=== PATIENT | female | born 1955 | race Caucasian/White ===

== ENCOUNTER 2020-03-30 13:39 | Inpatient (IN) ==
[2020-03-30 14:19] LABS: Appearance Urine Cloudy (Clear); Bacteria Urine Automated Negative (Negative); Bilirubin Urine Negative (Negative); Blood Urine 2+ (Negative); Color Urine Yellow; Epithelial Cell Urine Auto 20-30 /lpf (0-5); Glucose Urine UA Negative (Negative); Ketones Urine Negative (Negative); Leukocyte Esterase Urine Negative (Negative); Nitrite Urine Negative (Negative); Protein Urine Negative (Negative); Specific Gravity Urine 1.015 (1.000-1.030); Urobilinogen Urine Negative (Negative); pH Urine 5.5 (4.5-7.5)
[2020-03-30 14:32] LABS: Basophils # (auto) 0.02 K/uL (0-0.2); Basophils % (auto) 0.3 %; Eosinophils # (auto) 0.06 K/uL (0-0.5); Eosinophils % (auto) 0.8 %; Hematocrit (blood only) 39.1 % (37-47); Immature Granulocytes # (auto) 0.02 K/uL (0.00-0.02); Immature Granulocytes % (auto) 0.3 %; Lymphocytes # (auto) 1.92 K/uL (1.2-3.4); Lymphocytes % (auto) 24.1 %; Mean Corpuscular Hemoglobin 28.6 pg (25-34); Mean Corpuscular Hgb Conc 33.2 g/dL (32-36); Mean Corpuscular Volume 85.9 fL (80-100); Mean Platelet Volume 9.7 fL (7.4-10.4); Monocytes # (auto) 0.48 K/uL (0.11-0.59); Neutrophils # (auto) 5.47 K/uL (1.4-6.5); Neutrophils % (auto) 68.5 %; Platelet Count 232 K/uL (130-400); RDW Coefficient of Variation 13.8 % (11.5-14.5); RDW Standard Deviation 43.1 fL (36.4-46.3); Red Blood Count 4.55 M/uL (4.2-5.4); White Blood Count 7.97 K/uL (4.8-10.8)
[2020-03-30 14:51] LABS: Albumin Level 3.9 gm/dl (3.4-5.0); BUN Creatinine Ratio 16.2 (10-20); Calcium 10.7 mg/dl (8.5-10.1); Creatinine Clr Calc Pharmacy 48.7 ml/min; Est GFR (African American) 73.3; Est GFR (Non-African American) 63.2; Potassium 3.7 mmol/L (3.5-5.1)
[2020-03-30 15:01] LABS: Bilirubin,Total 0.6 mg/dl (0.2-1); Globulin 3.9 gm/dl (2.5-4.0); Thyroid Stimulating Hormone 1.18 uIu/ml (0.300-4.500); Total Protein 7.8 gm/dl (6.4-8.2)
[2020-03-30 15:05] LABS: Acetaminophen < 2 ug/ml (10-30)
[2020-03-30 15:06] LABS: Salicylate < 1.7 mg/dl (2.8-20)
[2020-03-30 15:50] LABS: Amphetamines+Metham, Urine Neg (Neg); Barbiturates, Urine Neg (Neg); Benzodiazepine, Urine Neg (Neg); Cocaine, Urine Neg (Neg); MDMA (Ecstacy), Urine Neg (Neg); Methadone, Urine Neg (Neg); Opiate, Urine Neg (Neg); Phencyclidine, Urine Neg (Neg)
--- NOTE | 2020-03-30 17:02 | Emergency Department Note ---
History of Present Illness General Chief complaint: Mental Health Evaluation Stated complaint: MHE Time Seen by Provider: 03/30/20 14:05 History of Present Illness Provider complaint: Suicidal ideation 64-year-old female presents emergency department for depression and suicidal ideation. Patient states she wants to kill herself because she is so sad. She states she has been feeling anxious since September and then became extremely depressed. She does not have a specific plan but does having thoughts. She denies any homicidal ideation. Patient reports no changes recently in her medi cations for her psychiatric conditions. Home Medications Home Medications Medication Instructions Recorded Confirmed Type cholecalciferol (vitamin D3) 50 50 mcg PO DAILY 03/30/20 03/30/20 History mcg (2,000 unit) capsule lorazepam 0.5 mg PO Q3H PRN 03/30/20 03/30/20 History mirtazapine 15 mg tablet 15 mg PO DAILY 03/30/20 03/30/20 History Allergies Allergy/AdvReac Type Severity Reaction Status Date / Time codeine Allergy Unknown Verified 03/30/20 10:28 morphine Allergy Verified 03/30/20 08:01 Past Med/Surg History Medical History Acute anxiety Family History Mother Thyroid disease Social History Smoking Status: Never smoker Hx Alcohol Use: No Preferred Language: Tuvaluan Communication Ability: Effective Beliefs That Will Affect Care: None marital status: Feels Safe at Home: Yes Review of Systems A total of 10 systems reviewed and were otherwise negative Physical Exam Vital Signs Vital Signs - 24 hr 03/30/20 13:46 03/30/20 17:52 Temperature 37.3 C Temperature Source Oral Pulse Rate 106 H 94 H Pulse Rhythm Regular Pulse Strength Normal Respiratory Rate 16 18 Respiratory Effort / Characteristics Non-Labored Spontaneous Respiratory Depth Normal Respiratory Pattern Regular Blood Pressure 133/82 126/73 Blood Pressure Mean 99 Blood Pressure Position Sitting Pulse Oximetry 97 97 Oxygen Delivery Method Room Air Room Air Sepsis Recent Fever Within 48 Hours No Sepsis New/Unexplained Change in Mental Status N/A Sepsis Action Taken by Nursing No Action Required Physical Exam HENT: Exam performed. -Head: Normocephalic and atraumatic. -Right Ear: External ear normal. No mastoid tenderness. -Left Ear: External ear normal. No mastoid tenderness. -Mouth/Throat: The oropharynx is clear and moist. No trismus in the jaw. No dental abscesses or uvula swelling. No oropharyngeal exudate or tonsillar abscesses. EYES: Conjunctivae and EOM are normal. Pupils are equal, round, and reactive to light. Right eye exhibits no discharge. Left eye exhibits no discharge. No scleral icterus. NECK: Normal range of motion. Neck supple. No JVD present. No spinous process tenderness present. No carotid bruit present. No rigidity. No tracheal deviation and normal range of motion present. No Brudzinski's sign and no Kernig's sign noted. CV: Normal rate, regular rhythm, normal heart sounds and intact distal pulses. There is no peripheral edema. Palpable radial pulses bue. PULM/CHEST: Effort normal and breath sounds normal. No respiratory distress. No stridor. She has no wheezes. She has no rales. -Chest Wall: She exhibits no tenderness. ABD: The abdomen is soft. Bowel sounds are normal. She has no distension. No mass is present. There is no tenderness. There is no rebound, no guarding, no Santana's sign and no tenderness at McBurney's point. Rovsig negative MUSC/SKEL: Normal range of motion. There is no peripheral edema, tenderness or deformity. LYMPH: No cervical adenopathy. NEURO: She is alert and oriented to person, place, and time. She has normal strength. No cranial nerve deficit or sensory deficit. Coordination and gait normal. GCS eye subscore is 4. GCS verbal subscore is 5. GCS motor subscore is 6. Cerebellar tests wnl. SKIN: Skin is warm and dry. She is not diaphoretic. PSYCH: Patient appears sad and depressed. She is crying. Suicidal ideation. No homicidal ideation. Course Course 1405: The patient was evaluated in room A5. A complete history and physical exam was performed. 1500: Vital signs stable. Patient medically cleared. Patient will be referred upstairs for admission [facility] is asking for COVID swab to be completed prior to their assessment for possible evaluation and admission. Patient has no symptoms of COVID-19 including no dyspnea, cough, loss of taste or smell, sore throat, fever. Patient was placed in observation at this time. 1805: Patient admitted to [facility] Administered Medications Mirtazapine (Mirtazapine Tab 15 Mg Tab) 15 mg PO HS JAMIE Stop: 04/29/20 20:59 Last Admin: 03/30/20 21:26 Dose: 15 mg Documented by: [id number] Medical Decision Making Laboratory Data Result diagrams: 03/30/20 14:14 03/30/20 14:14 Lab Results 03/30/20 03/30/20 03/30/20 Range/Units 14:04 14:04 14:14 WBC 7.97 (4.8-10.8) K/uL RBC 4.55 (4.2-5.4) M/uL Hgb 13.0 (12.0-16.0) g/dL Hct 39.1 (37-47) % MCV 85.9 (80-100) fL MCH 28.6 (25-34) pg MCHC 33.2 (32-36) g/dL RDW Std Deviation 43.1 (36.4-46.3) fL RDW Coeff of Sammi 13.8 (11.5-14.5) % Plt Count 232 (130-400) K/uL MPV 9.7 (7.4-10.4) fL Immature Gran % (Auto) 0.3 % Neut % (Auto) 68.5 % Lymph % (Auto) 24.1 % Gove % (Auto) 6.0 % Eos % (Auto) 0.8 % Baso % (Auto) 0.3 % Neut # (Auto) 5.47 (1.4-6.5) K/uL Lymph # (Auto) 1.92 (1.2-3.4) K/uL Gove # (Auto) 0.48 (0.11-0.59) K/uL Eos # (Auto) 0.06 (0-0.5) K/uL Baso # (Auto) 0.02 (0-0.2) K/uL Immature Gran # (Auto) 0.02 (0.00-0.02) K/uL Sodium (136-145) mmol/L Potassium (3.5-5.1) mmol/L Chloride (98-107) mmol/L Carbon Dioxide (21-32) mmol/L Anion Gap (3-11) BUN (7-18) mg/dl Creatinine (0.6-1.2) mg/dl Est Cr Clr Drug Dosing ml/min Est GFR ( Amer) Est GFR (Non-Af Amer) BUN/Creatinine Ratio (10-20) Glucose (70-99) mg/dl Calcium (8.5-10.1) mg/dl Total Bilirubin (0.2-1) mg/dl AST (15-37) U/L ALT (12-78) U/L Alkaline Phosphatase (45-117) U/L Total Protein (6.4-8.2) gm/dl Albumin (3.4-5.0) gm/dl Globulin (2.5-4.0) gm/dl Albumin/Globulin Ratio (0.9-2) TSH (0.300-4.500) uIu/ml Urine Color Yellow Urine Appearance Cloudy A (Clear) Urine pH 5.5 (4.5-7.5) Ur Specific [place] 1.015 (1.000-1.030) Urine Protein Negative (Negative) Urine Glucose (UA) Negative (Negative) Urine Ketones Negative (Negative) Urine Blood 2+ H (Negative) Urine Nitrite Negative (Negative) Urine Bilirubin Negative (Negative) Urine Urobilinogen Negative (Negative) Ur Leukocyte Esterase Negative (Negative) Urine WBC (Auto) 1-5 (0-5) /hpf Urine RBC (Auto) 5-10 H (0-4) /hpf U Hyaline Cast (Auto) 1-5 (0-5) /lpf U Epithel Cells (Auto) 20-30 H (0-5) /lpf Urine Bacteria (Auto) Negative (Negative) Salicylates (2.8-20) mg/dl Urine Opiates Screen Cancelled Ur Methadone, Qual Cancelled Acetaminophen (10-30) ug/ml Urine Barbiturates Cancelled Ur Phencyclidine (PCP) Cancelled U Amphetamin/Meth Scrn Cancelled MDMA (Ecstasy) Screen Cancelled U Benzodiazepines Scrn Cancelled Ur Cocaine Metabolite Cancelled U Marijuana (THC) Screen Cancelled Ethyl Alcohol mg/dL (0-3) mg/dl COVID-19 Eval Order SARS-CoV-2, RNA, NAAT (NEGATIVE) 03/30/20 03/30/20 03/30/20 Range/Units 14:14 14:14 14:14 WBC (4.8-10.8) K/uL RBC (4.2-5.4) M/uL Hgb (12.0-16.0) g/dL Hct (37-47) % MCV (80-100) fL MCH (25-34) pg MCHC (32-36) g/dL RDW Std Deviation (36.4-46.3) fL RDW Coeff of Sammi (11.5-14.5) % Plt Count (130-400) K/uL MPV (7.4-10.4) fL Immature Gran % (Auto) % Neut % (Auto) % Lymph % (Auto) % Gove % (Auto) % Eos % (Auto) % Baso % (Auto) % Neut # (Auto) (1.4-6.5) K/uL Lymph # (Auto) (1.2-3.4) K/uL Gove # (Auto) (0.11-0.59) K/uL Eos # (Auto) (0-0.5) K/uL Baso # (Auto) (0-0.2) K/uL Immature Gran # (Auto) (0.00-0.02) K/uL Sodium 140 (136-145) mmol/L Potassium 3.7 (3.5-5.1) mmol/L Chloride 107 (98-107) mmol/L Carbon Dioxide 26 (21-32) mmol/L Anion Gap 6.0 (3-11) BUN 15 (7-18) mg/dl Creatinine 0.94 (0.6-1.2) mg/dl Est Cr Clr Drug Dosing 48.7 ml/min Est GFR ( Amer) 73.3 Est GFR (Non-Af Amer) 63.2 BUN/Creatinine Ratio 16.2 (10-20) Glucose 135 H (70-99) mg/dl Calcium 10.7 H (8.5-10.1) mg/dl Total Bilirubin 0.6 (0.2-1) mg/dl AST 18 (15-37) U/L ALT 23 (12-78) U/L Alkaline Phosphatase 88 (45-117) U/L Total Protein 7.8 (6.4-8.2) gm/dl Albumin 3.9 (3.4-5.0) gm/dl Globulin 3.9 (2.5-4.0) gm/dl Albumin/Globulin Ratio 1.0 (0.9-2) TSH 1.180 (0.300-4.500) uIu/ml Urine Color Urine Appearance (Clear) Urine pH (4.5-7.5) Ur Specific [place] (1.000-1.030) Urine Protein (Negative) Urine Glucose (UA) (Negative) Urine Ketones (Negative) Urine Blood (Negative) Urine Nitrite (Negative) Urine Bilirubin (Negative) Urine Urobilinogen (Negative) Ur Leukocyte Esterase (Negative) Urine WBC (Auto) (0-5) /hpf Urine RBC (Auto) (0-4) /hpf U Hyaline Cast (Auto) (0-5) /lpf U Epithel Cells (Auto) (0-5) /lpf Urine Bacteria (Auto) (Negative) Salicylates < 1.7 L (2.8-20) mg/dl Urine Opiates Screen Ur Methadone, Qual Acetaminophen < 2 L (10-30) ug/ml Urine Barbiturates Ur Phencyclidine (PCP) U Amphetamin/Meth Scrn MDMA (Ecstasy) Screen U Benzodiazepines Scrn Ur Cocaine Metabolite U Marijuana (THC) Screen Ethyl Alcohol mg/dL < 3.0 (0-3) mg/dl COVID-19 Eval Order SARS-CoV-2, RNA, NAAT (NEGATIVE) 03/30/20 03/30/20 03/30/20 Range/Units 14:50 14:55 14:55 WBC (4.8-10.8) K/uL RBC (4.2-5.4) M/uL Hgb (12.0-16.0) g/dL Hct (37-47) % MCV (80-100) fL MCH (25-34) pg MCHC (32-36) g/dL RDW Std Deviation (36.4-46.3) fL RDW Coeff of Sammi (11.5-14.5) % Plt Count (130-400) K/uL MPV (7.4-10.4) fL Immature Gran % (Auto) % Neut % (Auto) % Lymph % (Auto) % Gove % (Auto) % Eos % (Auto) % Baso % (Auto) % Neut # (Auto) (1.4-6.5) K/uL Lymph # (Auto) (1.2-3.4) K/uL Gove # (Auto) (0.11-0.59) K/uL Eos # (Auto) (0-0.5) K/uL Baso # (Auto) (0-0.2) K/uL Immature Gran # (Auto) (0.00-0.02) K/uL Sodium (136-145) mmol/L Potassium (3.5-5.1) mmol/L Chloride (98-107) mmol/L Carbon Dioxide (21-32) mmol/L Anion Gap (3-11) BUN (7-18) mg/dl Creatinine (0.6-1.2) mg/dl Est Cr Clr Drug Dosing ml/min Est GFR ( Amer) Est GFR (Non-Af Amer) BUN/Creatinine Ratio (10-20) Glucose (70-99) mg/dl Calcium (8.5-10.1) mg/dl Total Bilirubin (0.2-1) mg/dl AST (15-37) U/L ALT (12-78) U/L Alkaline Phosphatase (45-117) U/L Total Protein (6.4-8.2) gm/dl Albumin (3.4-5.0) gm/dl Globulin (2.5-4.0) gm/dl Albumin/Globulin Ratio (0.9-2) TSH (0.300-4.500) uIu/ml Urine Color Urine Appearance (Clear) Urine pH (4.5-7.5) Ur Specific [place] (1.000-1.030) Urine Protein (Negative) Urine Glucose (UA) (Negative) Urine Ketones (Negative) Urine Blood (Negative) Urine Nitrite (Negative) Urine Bilirubin (Negative) Urine Urobilinogen (Negative) Ur Leukocyte Esterase (Negative) Urine WBC (Auto) (0-5) /hpf Urine RBC (Auto) (0-4) /hpf U Hyaline Cast (Auto) (0-5) /lpf U Epithel Cells (Auto) (0-5) /lpf Urine Bacteria (Auto) (Negative) Salicylates (2.8-20) mg/dl Urine Opiates Screen Neg Ur Methadone, Qual Neg Acetaminophen (10-30) ug/ml Urine Barbiturates Neg Ur Phencyclidine (PCP) Neg U Amphetamin/Meth Scrn Neg MDMA (Ecstasy) Screen Neg U Benzodiazepines Scrn Neg Ur Cocaine Metabolite Neg U Marijuana (THC) Screen Neg Ethyl Alcohol mg/dL (0-3) mg/dl COVID-19 [id number], RNA, NAAT NEGATIVE (NEGATIVE) MDM Narrative Observation note Indication: Psych eval/placement Patient, with anxiety was first seen at 1405 hrs and the observation time began at 1500 hrs and was necessary in order to have psych evaluation completed . Upon re-evaluation, 3 hours and 5 minutes of observation revealed that the patient should be admitted for inpatient psychiatric treatment. Disposition date and time March 30, 2020 1805. Impression & Plan Suicidal ideation, Depression Discharge Plan Visit Data Chief Complaint: Mental Health Evaluation Stated Complaint: MHE ED Provider: Madi Lozano Discharge Problem: Suicidal ideation, Depression Patient Disposition: Admitted As Inpatient Discharge Instructions Interventions: ED Discharge Assessment Last Done: 03/30/20 17:52 Discharge Problem: Depression Qualifiers: Depression Type: unspecified Qualified Code(s): F32.9 - Major depressive disorder, single episode, unspecified
[2020-03-30] MEDS ORDERED: ALUMINUM/MAGNESIUM SUSP 30 ML UDC PO PRN (18:05)
[2020-03-30] MEDS ORDERED: BISMUTH SUBSALICYLATE LIQD 236 ML PO PRN (18:05)
[2020-03-30] MEDS ORDERED: MAGNESIUM HYDROXIDE SUSP 30 ML UDC PO PRN (18:05)
[2020-03-30] MEDS ORDERED: ACETAMINOPHEN 325 MG TAB PO PRN (18:05)
[2020-03-30] MEDS ORDERED: SODIUM CHLORIDE 0.65% NA SOLN 45 ML (OCEAN) PRN (18:05)
[2020-03-30] MEDS ORDERED: LORazepam 0.5 MG TAB PO PRN (18:11)
[2020-03-30] MEDS: MIRTAZAPINE TAB 15 MG TAB PO SCH (21:26)
[2020-03-31] MEDS ORDERED: risperiDONE 0.5 MG TABLET PO STA (13:07)
--- NOTE | 2020-03-31 16:02 | History & Physical ---
Date of Service March 31, 2020 Impression / Recommendations Impression The patient is a 64-year-old woman with a somewhat complicated presentation. She reports that she has no significant psychiatric history until this year. Specifically, she reports that in December 2019 she became aware that she was becoming progressively more anxious, and that her anxiety was interfering with her ability to function in the activities of daily living and complete her usual tasks. As the summer progressed, and her anxiety worsened, she became aware that she was also depressed. She had fairly typical symptoms of depression that included depressed mood, crying spells, psychosocial withdrawal, poor concentration, anhedonia, and both initial and terminal insomnia. Eventually, as the patient's depression and anxiety progressed she began having thoughts of suicide, and was alarmed because the thoughts were becoming progressively more frequent and more intense. After a laboratory test revealed that the patient had hypercalcemia, she was evaluated by an marketer by the name of Dr. Hernandez and was found to have hyperparathyroidism secondary to a nodule on 1 of the lobes of her parathyroid gland. According to the patient, she was told that the evaluating marketer that she was recommending medication to address her hypercalcemia, but that they would like her to first seek treatment for anxiety and depression before treating the hypercalcemia. Hypercalcemia, particularly episodic hypercalcemia has been associated with anxiety, panic and significant mood alterations, and given the patient's report that there seems to be no psychosocial precipitating factor, and given the fact that she has no previous psychiatric history, we suspect that the patient's hyperparathyroidism/hypercalcemia may be at least a significant contributory factor. With the patient's permission I was in touch with [facility]. Dr. Hernandez was not in the office today, but I was able to speak with another marketer in the group, a Dr. Oneill, who advised that he was in agreement with our plan to treat both the hyperparathyroidism/hypercalcemia as well as the patient's anxiety and depression. His recommendation was for Cinacalcet 30 mg BID, with an anticipa nelly measurable reduction and serum calcium levels in 3 to 5 days. Accordingly, I made arrangements with the patient's daughter and to order picker a supply of Cinacalcet at a local pharmacy and bring it to the hospital for us to use, given that this medication is not on our hospital formulary at the present time. Because the patient reports that the several medications that have been used to treat her anxiety and depression have not been well toleratedwith symptoms that she says primarily consist of paradoxical worsening of anxiety and depression, combined with worsening paresthesiasI offered the patient a test dose of risperidone 0.5 mg by mouth for evaluative purposes. The patient reported that she did feel some relief in her anxiety about 30 or 40 minutes after taking risperidone, and she was observed laughing and smiling in the day room at around the same time. Accordingly, she was placed on a standing dose of risperidone 0.5 mg twice daily, and this will be adjusted as indicated by the patient's ongoing response. Also, the patient's nonspecific complaint of "fullness" and "pressure" in her throat and chest is of unknown etiology. I am offering the patient a trial of Protonix 40 mg twice a day because I suspect that she may be experiencing a somewhat atypical form of gastroesophageal reflux, possibly mitigated by her anxiety. (1) Suicidal ideation: 03/31 -The patient has been admitted to the [facility] behavioral health unit at [facility]. She has been placed on suicide precautions and is being closely observed for safety. She has been referred for individual, group, and recreational therapy. She will also be offered family interventions. -Although the patient says that she has not yet formulated a plan for suicide, she is alarmed that her thoughts of suicide have been progressive and more intense. Patient does contract for safety on the unit and has agreed to advise as if the suicidal thoughts worsen or if she develops thoughts of harming herself physically on the unit. (2) Depression: 03/31 -The patient notes that she has been taking mirtazapine 15 mg at bedtime for sleep and depression, and she notes that "usually" it is helpful to her, although she reports that last night she slept poorlypossibly because she was in a hospital since giving to her daughter 45 years ago. Patient is reluctant to consider an increase in mirtazapine at this time. She make statements such as "nerve medicines seem to not agree with me." -Given the patient's conviction that "nerve medications" make her symptoms worse, and because she is reluctant to try an increase in her dose of mirtazapine, I am recommending that we hold off for a day or 2 before discussing the use of a selective serotonin reuptake inhibitor. She has not had a trial of an SSRI, and given her chief complaint is really anxiety, more than depression, I would imagine that medication such as Lexapro, Prozac or Zoloft may be helpful. -In the meantime, she does seem to have responded favorably to a trial dose of risperidone 0.5 mg orally. We have started risperidone 0.5 mg twice daily, with her next dose scheduled for this evening. Eventually, we expect that risperidone will be, a "rescue" medication for anxiety, but the current goal is to first relieve the patient's anxiety to the degree that she will be better able to participate in various therapies offered on the unit. Depression Type: unspecified Qualified Code(s): F32.9 - Major depressive disorder, single episode, unspecified (3) Acute anxiety: 03/31 -The patient tells us that she feels that anxiety is her major problem, and that her depression is largely subsequent to the negative effects of being chronically anxious. -She reports various physical symptoms including symptoms that are suggestive of gastroesophageal reflux (fullness in throat and midline upper torso, and some difficulty swallowing at times --"it feels like [food] gets stuck." We will offer the patient a trial of Protonix 40 mg twice a day before meals. -It is not clear at this point whether the patient's hypercalcemia contributed the patient's anxiety will and, if so, to what degree. Hypercalcemia, particularly episodic hypercalcemia has been associated with anxiety symptoms as well as mood alterations. Currently, her plan is to treat both anxiety/depression as well as hypercalcemia. -We will start cinacalcet 30 mg twice daily. Because this medication is not available on the [facility] formulary, and because it is not available at her local pharmacy in [facility], we have ordered it through [facility] in [facility] in [place]. Her and daughter have been contacted and have agreed to order picker the fill prescription at the pharmacy and bring it to the administrative assistant front desk, from which it will be taken to the behavioral health unit, and then to the pharmacy for verification and distribution. (4) Hypercalcemia: 03/31 -In consultation with a Dr. Hickey of the [facility] endocrinology group, the patient will be started on Cinacalcet 30 mg twice a day (with food). Material risks and anticipated benefits of this medication have been reviewed with the patient. She asked several questions indicated understanding. -Her serum calcium level will be repeated on 04/03/2020 Present on Admission?: Yes Inventory Assets Strengths: Good sense of humor. Motivated to treatment. No premorbid history. Concerned, supportive, and actively involved family. (Her local family includes both of her parents, most or all of her 7 siblings, her of 46 years, and her adult daughter.) Needs: Resolution of disabling anxiety. Resolution of suicidality. Risk Factors Assessment Physical distress that includes pain. Suicidal thoughts. Depression. Severe anxiety. 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 She has a history of depression and anxiety, and was admitted on 03/30/20 18:05 on a 201 voluntary agreement for for escalating sucidal ideation Chief Complaint "I'm so nervous!" History of Present Illness The patient is a 64-year-old woman with no known previous psychiatric history prior to the current episode. She reports that beginning last spring (2019) she began to be aware that she was becoming anxious and "shaky." In December 2019 she noticed a substantial increase in her level of anxiety which she describes as being a persistent sense that something "bad" is about to happen, even though she knows with certainty that it is not. She reports feeling "jumpy" and notes that she would be physically startled by "just about anything, such as a noise or someone coming up behind her." The symptoms seem to progress and by late January/early February she was aware that she was also experiencing a markedly depressed mood. 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 She also noticed that she was withdrawing from other people, did not enjoy her usual activities, and was having difficulty concentrating and focusing. She also experienced various physical symptoms, including a sense of fullness in her throat and upper torso, worsening numbness, tingling and burning in her toes that seem to migrate upward towards her knees, and worsening tremors, primarily involving her hands. During this period of time the patient was referred to the [facility] endocrinology group, after it was noted on laboratory test that she had hypercalcemia. At the [facility] endocrinology group she saw a Dr. Hernandez. According to Dr. Hernandez's note, the patient's chief complaint was "anxiety and depression." Studies revealed that the patient was suffering from a parathyroid adenoma with associated hyperparathyroidism and hypercalcemia. Possibly because the patient's chief complaint had been anxiety depression, and because the patient's serum calcium level was not markedly high, it was suggested that she first seek treatment for her anxiety and depression before additional steps were taken to manage her hyperparathyroidism and hypercalcemia. According the patient, following this advice, the patient presented to the emergency room, reported to that she was experiencing suicidal thoughts, combined with an inability to function independently because of her extreme anxiety depression, and the patient was admitted voluntarily to the behavioral health unit for further observation and treatment. Past Psychiatric History Previous Psych History: The patient reports that she has had no contact with the psychiatric community prior to the current hospitalization. She had had at least one visit to the [facility] emergency department several weeks prior to the current admission, and was given a prescription for lorazepam 0.5 mg every 6 hours as needed anxiety #30. There are varying reports about the patient's use of lorazepam, but during her psychiatric evaluation she said that she took lorazepam, as prescribed, for several days, but felt that it made her more anxious and, in addition, worsened the paresthesias that reportedly involved her toes feet and calves. She notes that her last dose of lorazepam had been more than a week ago and, as above, she stopped taking it because of side effects. Her primary care physician had prescribed mirtazapine 15 mg at bedtime for sleep and depression. The patient notes that she experiences some degree of worsening paresthesias in response to mirtazapine, but finds it tolerable and that does assist with her sleep. She has declined to take a higher dose because of concerns about side effects. 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 Prescribed mirtazapine 15 mg at bedtime by a primary care physician. She also received a prescription for lorazepam 0.5 mg every 6 hours as needed anxiety #30 in the [facility] emergency department approximately 2 weeks prior to the admission. The patient reported that this medication was not effective and caused worsening anxiety as well as worsening paresthesias. The PDMP indicates that the patient's only other controlled drug prescription was for a 2-day supply of lorazepam dispensed in November. Previous Psych Admissions: None Do You Have Access To A Gun?: No History of Previous Suicide Attempt: No Past Medication Trials: See outpatient services, above. Past Head Trauma/Neuro History History of Concussion/Seizure: No Allergies Allergy/AdvReac Type Severity Reaction Status Date / Time codeine Allergy Unknown Verified 03/30/20 10:28 morphine Allergy Verified 03/30/20 08:01 Home Medications Home Medications Medication Instructions Recorded Confirmed Type cholecalciferol (vitamin D3) 50 50 mcg PO DAILY 03/30/20 03/30/20 History mcg (2,000 unit) capsule lorazepam 0.5 mg PO Q3H PRN 03/30/20 03/30/20 History mirtazapine 15 mg tablet 15 mg PO DAILY 03/30/20 03/30/20 History cinacalcet 30 mg PO BID #60 tab 03/31/20 Rx Family History Family History of: Depression and Doesn't Know Family Mental Health History Comment: Reports her sister has bipolar disorder Alcohol History Hx of Alcohol Use Over the Past 12 Months: No AUDIT Total Score: 0 Smoking Use Have You Smoked or Used Tobacco Products in the Last 30 Days: No Smoking Status: Never smoker Substance History Hx of Prescription Med Misuse Over the Past 12 Months: No Hx of Over the Counter Med Misuse Over the Past 12 Months: No Hx of Inhalent Misuse Over the Past 12 Months: No Hx of Organic Substance Use Over the Past 12 Months: No Hx of Illegal Substances/Street Drug Use Over Past 12 Months: No Problems as a Result of Past Substance Use: None Identified Personal History Living Arrangements: Home Living Arrangements Comments: Lives at home with Born In: The patient was born in [place] and raised by both parents. Childhood: Patient was raised [place] a farm in [place]. She was the youngest of her parents 8 children, and she notes that for much of her childhood she was responsible for caring for her younger siblings because both of her parents worked. She reports that she had a reasonably happy childhood and notes that she has no history of abuse or neglect. Highest Grade Completed: High School Graduate Marital Status: (The patient reports that she has been for 46 years and is very happy in her marriage.) Number Of Children: 1. The patient has a 45-year-old daughter, and a 20-year-old granddaughter. Beliefs That Will Affect Care: None Current Legal Problems: No Hx Legal Problems: No Hx Traumatic Life Events: No Patient History Medical History Acute anxiety Family History Mother Thyroid disease Social History Smoking Status: Never smoker Hx Alcohol Use: No Preferred Language: Guatemalan Communication Ability: Effective Beliefs That Will Affect Care: None marital status: Feels Safe at Home: Yes Review of Systems Review of Systems: All systems reviewed & are unremarkable except as noted in HPI & below At least 10 systems were reviewed as part of the psychiatric assessment. Apart from the history of hyperparathyroidism, as well as a sense of "fullness" in her midline upper torso and throat, a bilateral hand tremor (3- 6 beats per second), and paresthesias primarily involving her toes, the review of systems was essentially unremarkable. The patient describes herself as "very healthy, usually." Physical Exam Psychiatric: Orientation: alert, oriented x 3 and cooperative Apperance: appropriately dressed, appropriately groomed and appeared stated age Eye Contact: + fair eye contact Motor Behavior: + tremor Both hands, right greater than left. 3-6 beats per second. Speech: normal rate/rhythm/volume of speech The patient's voice is slightly tremulous. Her speech is spontaneous, registers anxiety, and is somewhat soft and slowed. Affect: + depressed affect and + anxious affect Mood: + depressed mood and + anxious mood Thought Process: goal directed thought process Thought Content: reality based without delusions Suicidal Thoughts: + reports suicidal thoughts The patient contracts for safety on the unit. Homicidal Thoughts: denies homicidal thoughts Hallucinations: no auditory hallucinations, no visual hallucinations, no tactile hallucinations and no gustatory hallucinations Cognition: recent memory grossly intact, remote memory grossly intact and language grossly intact; + attention not intact (The patient is very easily distracted by various somatic concerns, and her desire to find relief from her disabling anxiety.) Estimated Intelligence: average estimated intelligence Insight: + fair insight Judgement: good judgement Vital Signs (Past 24 Hours): Last Vital Signs Temp 36.9 C 03/31/20 06:52 Pulse 81 03/31/20 06:53 Resp 16 03/31/20 06:52 BP 110/72 03/31/20 06:53 Pulse Ox 98 03/30/20 18:57 Results & Data ([facility]) Current Inpatient Medications Current Inpatient Medications: Current Inpatient Medications Acetaminophen (Acetaminophen 325 Mg Tab) 650 mg PO Q4H PRN PRN Reason: Headache or Minor Fever Stop: 04/29/20 18:04 Al Hydrox/Mg Hydrox/Simethicone (Aluminum/Magnesium Susp 30 Ml Udc) 30 ml PO Q4H PRN PRN Reason: GI Upset Stop: 04/29/20 18:04 Bismuth Subsalicylate (Bismuth Subsalicylate Liqd 236 Ml) 15 ml PO PRN PRN PRN Reason: Loose Stool Stop: 04/29/20 18:04 Hydroxyzine HCl (Hydroxyzine Hcl 25 Mg Tab) 50 mg PO HSZ PRN PRN Reason: Insomnia Stop: 04/29/20 18:04 Hydroxyzine HCl (Hydroxyzine Hcl 25 Mg Tab) 25 mg PO Q4H PRN PRN Reason: Anxiety Stop: 04/29/20 18:04 Last Admin: 03/31/20 10:08 Dose: 25 mg Documented by: Lorazepam (Lorazepam 0.5 Mg Tab) 0.5 mg PO Q8 PRN PRN Reason: Anxiety Stop: 04/29/20 18:10 Magnesium Hydroxide (Magnesium Hydroxide Susp 30 Ml Udc) 30 ml PO DAILY PRN PRN Reason: Constipation Stop: 04/29/20 18:04 Mirtazapine (Mirtazapine Tab 15 Mg Tab) 15 mg PO HS JAMIE Stop: 04/29/20 20:59 Last Admin: 03/30/20 21:26 Dose: 15 mg Documented by: Miscellaneous (Cinacalcet 30 Mg ~ Order Awaiting Action) 1 ea N/A QS JAMIE Stop: 04/30/20 15:59 Pantoprazole Sodium (Pantoprazole 40 Mg Tab) 40 mg PO BID@0830,1715 JAMIE Stop: 04/30/20 17:14 Risperidone (Risperidone 0.5 Mg Tablet) 0.5 mg PO BID JAMIE Stop: 04/30/20 20:59 Sodium Chloride (Sodium Chloride 0.65% Na Soln 45 Ml ([place])) 1 - 2 sprays NA PRN PRN PRN Reason: Nasal Dryness/Congestion Stop: 04/29/20 18:04
[2020-03-31] MEDS: PANTOprazole 40 MG TAB PO SCH (17:43)
[2020-03-31] MEDS: CINACALCET 30 MG PO SCH (21:22)
[2020-03-31] MEDS: MIRTAZAPINE TAB 15 MG TAB PO SCH (21:23)
[2020-03-31] MEDS: risperiDONE 0.5 MG TABLET PO SCH (21:23)
[2020-04-01] MEDS: risperiDONE 0.5 MG TABLET PO SCH ×2 (09:04→21:05)
[2020-04-01] MEDS: PANTOprazole 40 MG TAB PO SCH ×2 (09:04→17:00)
[2020-04-01] MEDS: CINACALCET 30 MG PO SCH ×2 (09:05→21:04)
--- NOTE | 2020-04-01 12:07 | Psychiatric Progress Note ---
Date of Service April 01, 2020 Impression / Recommendations Impression The patient is a 64-year-old woman with a somewhat complicated presentation. She reports that she has no significant psychiatric history until this year. Specifically, she reports that in December 2019 she became aware that she was becoming progressively more anxious, and that her anxiety was interfering with her ability to function in the activities of daily living and complete her usual tasks. As the summer progressed, and her anxiety worsened, she became aware that she was also depressed. She had fairly typical symptoms of depression that included depressed mood, crying spells, psychosocial withdrawal, poor concentration, anhedonia, and both initial and terminal insomnia. Eventually, as the patient's depression and anxiety progressed she began having thoughts of suicide, and was alarmed because the thoughts were becoming progressively more frequent and more intense. After a laboratory test revealed that the patient had hypercalcemia, she was evaluated by an retail delivery driver by the name of Dr. Fareed you and was found to have hyperparathyroidism secondary to a nodule on 1 of the lobes of her parathyroid gland. According to the patient, she was told that the evaluating retail delivery driver that she was recommending medication to address her hypercalcemia, but that they would like her to first seek treatment for anxiety and depression before treating the hypercalcemia. Hypercalcemia, particularly episodic hypercalcemia has been associated with anxiety, panic and significant mood alterations, and given the patient's report that there seems to be no psychosocial precipitating factor, and given the fact that she has no previous psychiatric history, we suspect that the patient's hyperparathyroidism/hypercalcemia may be at least a significant contributory factor. With the patient's permission I was in touch with [facility]. Dr. Hernandez was not in the office today, but I was able to speak with another retail delivery driver in the group, a Dr. Oneill, who advised that he was in agreement with our plan to treat both the hyperparathyroidism/hypercalcemia as well as the patient's anxiety and depression. His recommendation was for Cinacalcet 30 mg BID, with an anticip ated measurable reduction and serum calcium levels in 3 to 5 days. Accordingly, I made arrangements with the patient's daughter and to meat pickler a supply of Cinacalcet at a local pharmacy and bring it to the hospital for us to use, given that this medication is not on our hospital formulary at the present time. Because the patient reports that the several medications that have been used to treat her anxiety and depression have not been well toleratedwith symptoms that she says primarily consist of paradoxical worsening of anxiety and depression, combined with worsening paresthesiasI offered the patient a test dose of risperidone 0.5 mg by mouth for evaluative purposes. The patient reported that she did feel some relief in her anxiety about 30 or 40 minutes after taking risperidone, and she was observed laughing and smiling in the day room at around the same time. Accordingly, she was placed on a standing dose of risperidone 0.5 mg twice daily, and this will be adjusted as indicated by the patient's ongoing response. Also, the patient's nonspecific complaint of "fullness" and "pressure" in her throat and chest is of unknown etiology. I am offering the patient a trial of Protonix 40 mg twice a day because I suspect that she may be experiencing a somewhat atypical form of gastroesophageal reflux, possibly mitigated by her anxiety. Reviewed 04/01/2020. Ongoing SI and extreme anxiety. (1) Suicidal ideation: 03/31 -The patient has been admitted to the locked behavioral health unit at [facility]. She has been placed on suicide precautions and is being closely observed for safety. She has been referred for individual, group, and recreational therapy. She will also be offered family interventions. -Although the patient says that she has not yet formulated a plan for suicide, she is alarmed that her thoughts of suicide have been progressive and more intense. Patient does contract for safety on the unit and has agreed to advise as if the suicidal thoughts worsen or if she develops thoughts of harming herself physically on the unit. Reviewed 04/01/2020. (2) Depression: 03/31 -The patient notes that she has been taking mirtazapine 15 mg at bedtime for sleep and depression, and she notes that "usually" it is helpful to her, a lthough she reports that last night she slept poorlypossibly because she was in a hospital since giving to her daughter 45 years ago. Patient is reluctant to consider an increase in mirtazapine at this time. She make statements such as "nerve medicines seem to not agree with me." -Given the patient's conviction that "nerve medications" make her symptoms worse, and because she is reluctant to try an increase in her dose of mirtazapine, I am recommending that we hold off for a day or 2 before discussing the use of a selective serotonin reuptake inhibitor. She has not had a trial of an SSRI, and given her chief complaint is really anxiety, more than depression, I would imagine that medication such as Lexapro, Prozac or Zoloft may be helpful. -In the meantime, she does seem to have responded favorably to a trial dose of risperidone 0.5 mg orally. We have started risperidone 0.5 mg twice daily, with her next dose scheduled for this evening. Eventually, we expect that risperidon e will be, a "rescue" medication for anxiety, but the current goal is to first relieve the patient's anxiety to the degree that she will be better able to participate in various therapies offered on the unit. Reviewed 04/01/2020. Tolerating Risperdal. (3) Acute anxiety: 03/31 -The patient tells us that she feels that anxiety is her major problem, and that her depression is largely subsequent to the negative effects of being chronically anxious. -She reports various physical symptoms including symptoms that are suggestive of gastroesophageal reflux (fullness in throat and midline upper torso, and some difficulty swallowing at times --"it feels like [food] gets stuck." We will offer the patient a trial of Protonix 40 mg twice a day before meals. -It is not clear at this point whether the patient's hypercalcemia contributed the patient's anxiety will and, if so, to what degree. Hypercalcemia, particularly episodic hypercalcemia has been associated with anxiety symptoms as well as mood alterations. Currently, her plan is to treat both anxiety/depression as well as hypercalcemia. -We will start cinacalcet 30 mg twice daily. Because this medication is not available on the [facility] formulary, and because it is not available at her local pharmacy in [facility], we have ordered it through [employer] in [facility] in [place]. Her and daughter have been contacted and have agreed to meat pickler the fill prescription at the pharmacy and bring it to the java front end web developer, from which it will be taken to the behavioral health unit, and then to the pharmacy for verification and distribution. Reviewed 04/01/2020. Given written med list, has both Vistaril and Ativan prns. (4) Hypercalcemia: 03/31 -In consultation with a Dr. Hickey of the [facility] endocrinology group, the patient will be started on Cinacalcet 30 mg twice a day (with food). Material risks and anticipated benefits of this medication have been reviewed with the patient. She asked several questions indicated understanding. -Her serum calcium level will be repeated on 04/03/2020 Reviewed 04/01/2020. Inventory Assets Strengths: Good sense of humor. Motivated to treatment. No premorbid history. Concerned, supportive, and actively involved family. (Her local family includes both of her parents, most or all of her 7 siblings, her of 46 years, and her adult daughter.) Needs: Resolution of disabling anxiety. Resolution of suicidality. 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 Review of Systems Sleep Information Total Hours of Sleep: 6.75 Meal Information Percent Meal Consumed - Breakfast: 90 Percent Meal Consumed - Lunch: 100 Percent Meal Consumed - Dinner: 90 Subjective Subjective Patient was seen & assessed and interval progress reviewed with nursing and social work. Extremely anxious re: her new medication regimen, calcium and all of the various somatic issues that hypercalcemia may cause. She believes cause of numbness, tingling, visual changes ("glasses don't work") and ongoing anxiety. Reviewed plan to recheck calcium on Friday. Today are monitoring response to Risperdal which seemed helpful yesterday for perseveration. Still states she won't take SSRI or higher dose of Remeron as PCP told "me to get my parathyroid worked out first" though reports endocrine told her to get anxiety under control. States her throat "issue" is resolved with Protonix. Physical Exam Psychiatric Orientation: alert, oriented x 3 and cooperative Apperance: appropriately dressed, appropriately groomed and appeared stated age Eye Contact: + fair eye contact Motor Behavior: + tremor Speech: normal rate/rhythm/volume of speech Affect: + depressed affect and + anxious affect Mood: + depressed mood and + anxious mood Thought Process: goal directed thought process Thought Content: reality based without delusions Suicidal Thoughts: + reports suicidal thoughts Homicidal Thoughts: denies homicidal thoughts Hallucinations: no auditory hallucinations and no visual hallucinations Cognition: recent memory grossly intact, remote memory grossly intact and language grossly intact Estimated Intelligence: average estimated intelligence Insight: + fair insight Judgement: good judgement Vital Signs (Past 24 Hours) Last Vital Signs Temp 36.6 C 04/01/20 06:39 Pulse 88 04/01/20 06:39 Resp 20 04/01/20 06:39 BP 117/75 04/01/20 06:39 Pulse Ox 98 03/30/20 18:57 Results & Data ([facility]) Current Inpatient Medications Current Inpatient Medications: Current Inpatient Medications Acetaminophen (Acetaminophen 325 Mg Tab) 650 mg PO Q4H PRN PRN Reason: Headache or Minor Fever Stop: 04/29/20 18:04 Al Hydrox/Mg Hydrox/Simethicone (Aluminum/Magnesium Susp 30 Ml Udc) 30 ml PO Q4H PRN PRN Reason: GI Upset Stop: 04/29/20 18:04 Bismuth Subsalicylate (Bismuth Subsalicylate Liqd 236 Ml) 15 ml PO PRN PRN PRN Reason: Loose Stool Stop: 04/29/20 18:04 Hydroxyzine HCl (Hydroxyzine Hcl 25 Mg Tab) 50 mg PO HSZ PRN PRN Reason: Insomnia Stop: 04/29/20 18:04 Hydroxyzine HCl (Hydroxyzine Hcl 25 Mg Tab) 25 mg PO Q4H PRN PRN Reason: Anxiety Stop: 04/29/20 18:04 Last Admin: 04/01/20 06:53 Dose: 25 mg Documented by: Lorazepam (Lorazepam 0.5 Mg Tab) 0.5 mg PO Q8 PRN PRN Reason: Anxiety Stop: 04/29/20 18:10 Magnesium Hydroxide (Magnesium Hydroxide Susp 30 Ml Udc) 30 ml PO DAILY PRN PRN Reason: Constipation Stop: 04/29/20 18:04 Mirtazapine (Mirtazapine Tab 15 Mg Tab) 15 mg PO HS JAMIE Stop: 04/29/20 20:59 Last Admin: 03/31/20 21:23 Dose: 15 mg Documented by: Cinacalcet 30mg ~ Non-Formulary Patient's Own Med 1 ea PO BID [facility] Stop: 04/30/20 20:59 Last Admin: 04/01/20 09:05 Dose: 30 mg Documented by: Pantoprazole Sodium (Pantoprazole 40 Mg Tab) 40 mg PO BID@[id number] [facility] Stop: 04/30/20 17:14 Last Admin: 04/01/20 09:04 Dose: 40 mg Documented by: Risperidone (Risperidone 0.5 Mg Tablet) 0.5 mg PO BID [facility] Stop: 04/30/20 20:59 Last Admin: 04/01/20 09:04 Dose: 0.5 mg Documented by: Sodium Chloride (Sodium Chloride 0.65% Na Soln 45 Ml ([place])) 1 - 2 sprays NA PRN PRN PRN Reason: Nasal Dryness/Congestion Stop: 04/29/20 18:04 Mental Health & Subst Abuse Tx Therapist Name of Therapist: Gissell Mcghee Therapist's Date of Therapist Appointment: 04/24/20 Therapy Appointment Comment: [address], [place] Vascular Tech Name of Vascular Tech: None Post Discharge Appointments Primary Care Physician Name Of Family Doctor: Dr. Andrade Primary Care Provider Appointment Comment: [address] [place] (1) Depression Depression Type: unspecified Qualified Code(s): F32.9 - Major depressive disorder, single episode, unspecified
[2020-04-01] MEDS: MIRTAZAPINE TAB 15 MG TAB PO SCH (21:05)
[2020-04-02] MEDS: PANTOprazole 40 MG TAB PO SCH ×2 (08:15→17:10)
[2020-04-02] MEDS: CINACALCET 30 MG PO SCH ×2 (08:15→21:56)
[2020-04-02] MEDS: risperiDONE 0.5 MG TABLET PO SCH ×2 (08:16→21:39)
[2020-04-02] MEDS ORDERED: LORazepam 0.5 MG TAB PO PRN (09:21)
--- NOTE | 2020-04-02 10:05 | Psychiatric Progress Note ---
Date of Service April 02, 2020 Impression / Recommendations Impression The patient is a 64-year-old woman with a somewhat complicated presentation. She reports that she has no significant psychiatric history until this year. Specifically, she reports that in December 2019 she became aware that she was becoming progressively more anxious, and that her anxiety was interfering with her ability to function in the activities of daily living and complete her usual tasks. As the summer progressed, and her anxiety worsened, she became aware that she was also depressed. She had fairly typical symptoms of depression that included depressed mood, crying spells, psychosocial withdrawal, poor concentration, anhedonia, and both initial and terminal insomnia. Eventually, as the patient's depression and anxiety progressed she began having thoughts of suicide, and was alarmed because the thoughts were becoming progressively more frequent and more intense. After a laboratory test revealed that the patient had hypercalcemia, she was evaluated by an inspecting engineer by the name of Dr. Fareed you and was found to have hyperparathyroidism secondary to a nodule on 1 of the lobes of her parathyroid gland. According to the patient, she was told that the evaluating inspecting engineer that she was recommending medication to address her hypercalcemia, but that they would like her to first seek treatment for anxiety and depression before treating the hypercalcemia. Hypercalcemia, particularly episodic hypercalcemia has been associated with anxiety, panic and significant mood alterations, and given the patient's report that there seems to be no psychosocial precipitating factor, and given the fact that she has no previous psychiatric history, we suspect that the patient's hyperparathyroidism/hypercalcemia may be at least a significant contributory factor. With the patient's permission I was in touch with [facility]. Dr. Hernandez was not in the office today, but I was able to speak with another inspecting engineer in the group, a Dr. Oneill, who advised that he was in agreement with our plan to treat both the hyperparathyroidism/hypercalcemia as well as the patient's anxiety and depression. His recommendation was for Cinacalcet 30 mg BID, with an anticip ated measurable reduction and serum calcium levels in 3 to 5 days. Accordingly, I made arrangements with the patient's daughter and to case picker a supply of Cinacalcet at a local pharmacy and bring it to the hospital for us to use, given that this medication is not on our hospital formulary at the present time. Because the patient reports that the several medications that have been used to treat her anxiety and depression have not been well toleratedwith symptoms that she says primarily consist of paradoxical worsening of anxiety and depression, combined with worsening paresthesiasI offered the patient a test dose of risperidone 0.5 mg by mouth for evaluative purposes. The patient reported that she did feel some relief in her anxiety about 30 or 40 minutes after taking risperidone, and she was observed laughing and smiling in the day room at around the same time. Accordingly, she was placed on a standing dose of risperidone 0.5 mg twice daily, and this will be adjusted as indicated by the patient's ongoing response. Also, the patient's nonspecific complaint of "fullness" and "pressure" in her throat and chest is of unknown etiology. I am offering the patient a trial of Protonix 40 mg twice a day because I suspect that she may be experiencing a somewhat atypical form of gastroesophageal reflux, possibly mitigated by her anxiety. Reviewed 04/01/2020. 04/02--ongoing anxiety and inability to function outside of the hospital. (1) Suicidal ideation: 03/31 -The patient has been admitted to the [facility] behavioral health unit at [facility]. She has been placed on suicide precautions and is being closely observed for safety. She has been referred for individual, group, and recreational therapy. She will also be offered family interventions. -Although the patient says that she has not yet formulated a plan for suicide, she is alarmed that her thoughts of suicide have been progressive and more intense. Patient does contract for safety on the unit and has agreed to advise as if the suicidal thoughts worsen or if she develops thoughts of harming herself physically on the unit. Reviewed 04/01/2020. (2) Depression: 03/31 -The patient notes that she has been taking mirtazapine 15 mg at bedtime for sleep and depression, and she notes that "usually" it is helpful to her, although she reports that last night she slept poorlypossibly because she was in a hospital since giving to her daughter 45 years ago. Patient is rel uctant to consider an increase in mirtazapine at this time. She make statements such as "nerve medicines seem to not agree with me." -Given the patient's conviction that "nerve medications" make her symptoms worse, and because she is reluctant to try an increase in her dose of mirtazapine, I am recommending that we hold off for a day or 2 before discussing the use of a selective serotonin reuptake inhibitor. She has not had a trial of an SSRI, and given her chief complaint is really anxiety, more than depression, I would imagine that medication such as Lexapro, Prozac or Zoloft may be helpfu l. -In the meantime, she does seem to have responded favorably to a trial dose of risperidone 0.5 mg orally. We have started risperidone 0.5 mg twice daily, with her next dose scheduled for this evening. Eventually, we expect that risperidone will be, a "rescue" medication for anxiety, but the current goal is to first relieve the patient's anxiety to the degree that she will be better able to participate in various therapies offered on the unit. Reviewed 04/01/2020. Tolerating Risperdal. 04/02--if dizzy and tachy persist may need to shift Risperdal or d/c in favor of Abilify. (3) Acute anxiety: 03/31 -The patient tells us that she feels that anxiety is her major problem, and that her depression is largely subsequent to the negative effects of being chronically anxious. -She reports various physical symptoms including symptoms that are suggestive of gastroesophageal reflux (fullness in throat and midline upper torso, and some difficulty swallowing at times --"it feels like [food] gets stuck." We will offer the patient a trial of Protonix 40 mg twice a day before meals. -It is not clear at this point whether the patient's hypercalcemia contributed the patient's anxiety will and, if so, to what degree. Hypercalcemia, particularly episodic hypercalcemia has been associated with anxiety symptoms as well as mood alterations. Currently, her plan is to treat both anxiety/depression as well as hypercalcemia. -We will start cinacalcet 30 mg twice daily. Because this medication is not available on the [facility] formulary, and because it is not available at her local pharmacy in [facility], we have ordered it through [facility] in [facility] in [place]. Her and daughter have been contact ed and have agreed to case picker the fill prescription at the pharmacy and bring it to the front desk team member, from which it will be taken to the behavioral health unit, and then to the pharmacy for verification and distribution. Reviewed 04/01/2020. Given written med list, has both Vistaril and Ativan prns. 04/02--consolidate prns, d/c Vistaril, monitor sleep and bp. (4) Hypercalcemia: 03/31 -In consultation with a Dr. Hickey of the [facility] endocrinology group, the patient will be started on Cinacalcet 30 mg twice a day (with food). Material risks and anticipated benefits of this medication have been reviewed with the patient. She asked several questions indicated understanding. -Her serum calcium level will be repeated on 04/03/2020 Reviewed 04/01/2020. Inventory Assets Strengths: Good sense of humor. Motivated to treatment. No premorbid history. Concerned, supportive, and actively involved family. (Her local family includes both of her parents, most or all of her 7 siblings, her of 46 years, and her adult daughter.) Needs: Resolution of disabling anxiety. Resolution of suicidality. 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 Review of Systems Sleep Information Total Hours of Sleep: 6 Meal Information Percent Meal Consumed - Breakfast: 90 Percent Meal Consumed - Lunch: 100 Percent Meal Consumed - Dinner: 100 Subjective Subjective Patient was seen & assessed and interval progress reviewed with nursing and social work. Was very anxious in am and reliant on prns. Mood improved as day progressed and no issues with sedation or gait. Today reports same issue with vision and asks multiple questions about what can be attributed to her hyperparathyroidism. Easier to redirect anxieties and discussed need to discontinue anticholinergic medicines and watch dose of benzos during day due to combined sedation and fall risk. REviewed that will monitor BP and orthostatics as necessary to determine if side effect to Risperdal. Physical Exam Psychiatric Orientation: alert, oriented x 3 and cooperative Apperance: appropriately dressed, appropriately groomed and appeared stated age Eye Contact: + fair eye contact Motor Behavior: steady gait and station and no abnormal motor movements Speech: normal rate/rhythm/volume of speech Affect: + depressed affect and + anxious affect Mood: + depressed mood and + anxious mood Thought Process: goal directed thought process Thought Content: reality based without delusions Suicidal Thoughts: denies suicidal thoughts Homicidal Thoughts: denies homicidal thoughts Hallucinations: no auditory hallucinations, no visual hallucinations, no tactile hallucinations and no gustatory hallucinations Cognition: recent memory grossly intact, remote memory grossly intact and language grossly intact Estimated Intelligence: average estimated intelligence Vital Signs (Past 24 Hours) Last Vital Signs Temp 36.8 C 04/02/20 06:50 Pulse 101 H 04/02/20 09:30 Resp 16 04/02/20 06:50 BP 113/71 04/02/20 09:30 Pulse Ox 98 04/01/20 21:53 Results & Data ([facility]) Laboratory Results Laboratory Results - last 24 hr 04/01/20 17:04 POC Glucose 97 Current Inpatient Medications Current Inpatient Medications: Current Inpatient Medications Acetaminophen (Acetaminophen 325 Mg Tab) 650 mg PO Q4H PRN PRN Reason: Headache or Minor Fever Stop: 04/29/20 18:04 Al Hydrox/Mg Hydrox/Simethicone (Aluminum/Magnesium Susp 30 Ml Udc) 30 ml PO Q4H PRN PRN Reason: GI Upset Stop: 04/29/20 18:04 Bismuth Subsalicylate (Bismuth Subsalicylate Liqd 236 Ml) 15 ml PO PRN PRN PRN Reason: Loose Stool Stop: 04/29/20 18:04 Lorazepam (Lorazepam 0.5 Mg Tab) 0.5 mg PO HS PRN PRN Reason: Anxiety/Insomnia Stop: 04/29/20 18:10 Lorazepam (Lorazepam 0.5 Mg Tab) 0.25 mg PO Q6 PRN PRN Reason: Anxiety Stop: 05/02/20 09:19 Magnesium Hydroxide (Magnesium Hydroxide Susp 30 Ml Udc) 30 ml PO DAILY PRN PRN Reason: Constipation Stop: 04/29/20 18:04 Mirtazapine (Mirtazapine Tab 15 Mg Tab) 15 mg PO HS JAMIE Stop: 04/29/20 20:59 Last Admin: 10/03/20 21:05 Dose: 15 mg Documented by: Cinacalcet 30mg ~ Non-Formulary Patient's Own Med 1 ea PO BID COUNTS INCLUDE 234 BEDS AT THE [facility] Stop: 04/30/20 20:59 Last Admin: 04/02/20 08:15 Dose: 30 mg Documented by: Pantoprazole Sodium (Pantoprazole 40 Mg Tab) 40 mg PO BID@4583,6158 COUNTS INCLUDE 234 BEDS AT THE [facility] Stop: 04/30/20 17:14 Last Admin: 04/02/20 08:15 Dose: 40 mg Documented by: Risperidone (Risperidone 0.5 Mg Tablet) 0.5 mg PO BID COUNTS INCLUDE 234 BEDS AT THE [facility] Stop: 04/30/20 20:59 Last Admin: 04/02/20 08:16 Dose: 0.5 mg Documented by: Sodium Chloride (Sodium Chloride 0.65% Na Soln 45 Ml ([place])) 1 - 2 sprays NA PRN PRN PRN Reason: Nasal Dryness/Congestion Stop: 04/29/20 18:04 Mental Health & Subst Abuse Tx Therapist Name of Therapist: Gissell Mcghee Therapist's Date of Therapist Appointment: 04/24/20 Therapy Appointment Comment: [address] [place] [employer] Specialist Name of Gas Plant Specialist: None Post Discharge Appointments Primary Care Physician Name Of Family Doctor: Dr. Andrade Primary Care Provider Appointment Comment: [address] [place] (1) Depression Depression Type: unspecified Qualified Code(s): F32.9 - Major depressive disorder, single episode, unspecified
[2020-04-02] MEDS: LORazepam 0.5 MG TAB PO PRN ×2 (10:47→19:17)
[2020-04-02] MEDS: MIRTAZAPINE TAB 15 MG TAB PO SCH (21:40)
[2020-04-03] MEDS: LORazepam 0.5 MG TAB PO PRN ×3 (07:22→19:21)
[2020-04-03] MEDS: CINACALCET 30 MG PO SCH (08:02)
[2020-04-03] MEDS: PANTOprazole 40 MG TAB PO SCH ×2 (08:02→17:20)
[2020-04-03] MEDS: risperiDONE 0.5 MG TABLET PO SCH ×2 (08:02→21:16)
--- NOTE | 2020-04-03 13:52 | Psychiatric Progress Note ---
Date of Service April 03, 2020 Impression / Recommendations Impression The patient is a 64-year-old woman with a somewhat complicated presentation. She reports that she has no significant psychiatric history until this year. Specifically, she reports that in December 2019 she became aware that she was becoming progressively more anxious, and that her anxiety was interfering with her ability to function in the activities of daily living and complete her usual tasks. As the summer progressed, and her anxiety worsened, she became aware that she was also depressed. She had fairly typical symptoms of depression that included depressed mood, crying spells, psychosocial withdrawal, poor concentration, anhedonia, and both initial and terminal insomnia. Eventually, as the patient's depression and anxiety progressed she began having thoughts of suicide, and was alarmed because the thoughts were becoming progressively more frequent and more intense. After a laboratory test revealed that the patient had hypercalcemia, she was evaluated by an funeral location manager by the name of Dr. Fareed you and was found to have hyperparathyroidism secondary to a nodule on 1 of the lobes of her parathyroid gland. According to the patient, she was told that the evaluating funeral location manager that she was recommending medication to address her hypercalcemia, but that they would like her to first seek treatment for anxiety and depression before treating the hypercalcemia. Hypercalcemia, particularly episodic hypercalcemia has been associated with anxiety, panic and significant mood alterations, and given the patient's report that there seems to be no psychosocial precipitating factor, and given the fact that she has no previous psychiatric history, we suspect that the patient's hyperparathyroidism/hypercalcemia may be at least a significant contributory factor. With the patient's permission I was in touch with [facility]. Dr. Hernandez was not in the office today, but I was able to speak with another funeral location manager in the group, a Dr. Oneill, who advised that he was in agreement with our plan to treat both the hyperparathyroidism/hypercalcemia as well as the patient's anxiety and depression. His recommendation was for Cinacalcet 30 mg BID, with an anticip ated measurable reduction and serum calcium levels in 3 to 5 days. Accordingly, I made arrangements with the patient's daughter and to pick up attendant a supply of Cinacalcet at a local pharmacy and bring it to the hospital for us to use, given that this medication is not on our hospital formulary at the present time. Because the patient reports that the several medications that have been used to treat her anxiety and depression have not been well toleratedwith symptoms that she says primarily consist of paradoxical worsening of anxiety and depression, combined with worsening paresthesiasI offered the patient a test dose of risperidone 0.5 mg by mouth for evaluative purposes. The patient reported that she did feel some relief in her anxiety about 30 or 40 minutes after taking risperidone, and she was observed laughing and smiling in the day room at around the same time. Accordingly, she was placed on a standing dose of risperidone 0.5 mg twice daily, and this will be adjusted as indicated by the patient's ongoing response. Also, the patient's nonspecific complaint of "fullness" and "pressure" in her throat and chest is of unknown etiology. I am offering the patient a trial of Protonix 40 mg twice a day because I suspect that she may be experiencing a somewhat atypical form of gastroesophageal reflux, possibly mitigated by her anxiety. Reviewed 04/01/2020. 04/02--ongoing anxiety and inability to function outside of the hospital. 04/03--improving. (1) Suicidal ideation: 03/31 -The patient has been admitted to the [facility] behavioral health unit at [facility]. She has been placed on suicide precautions and is being closely observed for safety. She has been referred for individual, group, and r ecreational therapy. She will also be offered family interventions. -Although the patient says that she has not yet formulated a plan for suicide, she is alarmed that her thoughts of suicide have been progressive and more intense. Patient does contract for safety on the unit and has agreed to advise as if the suicidal thoughts worsen or if she develops thoughts of harming herself physically on the unit. Reviewed 04/01/2020. 04/03--resolved on 04/02 (2) Depression: 03/31 -The patient notes that she has been taking mirtazapine 15 mg at bedtime for sleep and depression, and she notes that "usually" it is helpful to her, although she reports that last night she slept poorlypossibly because she was in a hospital since giving to her daughter 45 years ago. Patient is reluctant to consider an increase in mirtazapine at this time. She make statements such as "nerve medicines seem to not agree with me." -Given the patient's conviction that "nerve medications" make her symptoms worse, and because she is reluctant to try an increase in her dose of mirtazapine, I am recommending that we hold off for a day or 2 before discussing the use of a selective serotonin reuptake inhibitor. She has not had a trial of an SSRI, and given her chief complaint is really anxiety, more than depression, I would imagine that medication such as Lexapro, Prozac or Zoloft may be helpful. -In the meantime, she does seem to have responded favorably to a trial dose of risperidone 0.5 mg orally. We have started risperidone 0.5 mg twice daily, with her next dose scheduled for this evening. Eventually, we expect that risperidone will be, a "rescue" medication for anxiety, but the current goal is to first relieve the patient's anxiety to the degree that she will be better able to participate in various therapies offered on the unit. Reviewed 04/01/2020. Tolerating Risperdal. 04/02--if dizzy and tachy persist may need to shift Risperdal or d/c in favor of Abilify. 04/03--improved, no evidence of cognitive or gait impairment on current meds and BP improved. (3) Acute anxiety: 03/31 -The patient tells us that she feels that anxiety is her major problem, and that her depression is largely subsequent to the negative effects of being chronically anxious. -She reports various physical symptoms including symptoms that are suggestive of gastroesophageal reflux (fullness in throat and midline upper torso, and some difficulty swallowing at times --"it feels like [food] gets stuck." We will offer the patient a trial of Protonix 40 mg twice a day before meals. -It is not clear at this point whether the patient's hypercalcemia contributed the patient's anxiety will and, if so, to what degree. Hypercalcemia, particularly episodic hypercalcemia has been associated with anxiety symptoms as well as mood alterations. Currently, her plan is to treat both anxiety/depression as well as hypercalcemia. -We will start cinacalcet 30 mg twice daily. Because this medication is not available on the [facility] formulary, and because it is not available at her local pharmacy in [facility], we have ordered it through [facility] in [facility] in [place]. Her and daughter have been contacted and have agreed to pick up attendant the fill prescription at the pharmacy and bring it to the javascript front end developer, from which it will be taken to the behavioral health unit, and then to the pharmacy for verification and distribution. Reviewed 04/01/2020. Given written med list, has both Vistaril and Ativan prns. 04/02--consolidate prns, d/c Vistaril, monitor sleep and bp. 04/03--tolerating low dose Ativan. (4) Hypercalcemia: 03/31 -In consultation with a Dr. Hickey of the [facility] endocrinology group, the patient will be started on Cinacalcet 30 mg twice a day (with food). Material risks and anticipated benefits of this medication have been reviewed with the patient. She asked several questions indicated understanding. -Her serum calcium level will be repeated on 04/03/2020 Reviewed 04/01/2020. 04/03--case reviewed with Dr. Hernandez ([facility], ), based on normal calcemia, overall mild hypercalcemia would d/c Cinacalcet. Reports patient should contact her upon discharge for a urgent work in appt. States that vitamin D should be held for another week before restarting supplement. Inventory Assets Strengths: Good sense of humor. Motivated to treatment. No premorbid history. Concerned, supportive, and actively involved family. (Her local family includes both of her parents, most or all of her 7 siblings, her of 46 years, and her adult daughter.) Needs: Resolution of disabling anxiety. Resolution of suicidality. 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 Review of Systems Sleep Information Total Hours of Sleep: 6.75 Meal Information Percent Meal Consumed - Breakfast: 100 Percent Meal Consumed - Lunch: 90 Percent Meal Consumed - Dinner: 100 Subjective Subjective Patient was seen & assessed and interval progress reviewed with treatment team. Less somatic today. Feels low dose Ativan is effective an although states her "equillibrium still feels a little off" internally there is no evidence that gait is affected. Reviewed her concerns about hypercalcemia and overall treatment needs as well as difficult being from her . Physical Exam Psychiatric Orientation: alert Apperance: appropriately dressed and appropriately groomed Eye Contact: good eye contact Motor Behavior: steady gait and station Speech: normal rate/rhythm/volume of speech Affect: euthymic affect Mood: + anxious mood Thought Process: goal directed thought process Thought Content: + preoccupation; no delusions Suicidal Thoughts: denies suicidal thoughts Homicidal Thoughts: denies homicidal thoughts Hallucinations: no auditory hallucinations and no visual hallucinations Cognition: attention grossly intact and language grossly intact Estimated Intelligence: consistent with education level Insight: + limited insight Judgement: + limited judgement Vital Signs (Past 24 Hours) Last Vital Signs Temp 36.7 C 04/03/20 06:41 Pulse 96 H 04/03/20 06:41 Resp 16 04/03/20 06:41 BP 124/76 04/03/20 06:41 Pulse Ox 97 04/02/20 21:44 Results & Data ([facility]) Laboratory Results Laboratory Results - last 24 hr 04/03/20 08:05 Calcium 9.9 Current Inpatient Medications Current Inpatient Medications: Current Inpatient Medications Acetaminophen (Acetaminophen 325 Mg Tab) 650 mg PO Q4H PRN PRN Reason: Headache or Minor Fever Stop: 04/29/20 18:04 Al Hydrox/Mg Hydrox/Simethicone (Aluminum/Magnesium Susp 30 Ml Udc) 30 ml PO Q4H PRN PRN Reason: GI Upset Stop: 04/29/20 18:04 Bismuth Subsalicylate (Bismuth Subsalicylate Liqd 236 Ml) 15 ml PO PRN PRN PRN Reason: Loose Stool Stop: 04/29/20 18:04 Clotrimazole (Clotrimazole 1% Cr 15 Gm Tube) 1 appln EXT BID JAMIE Stop: 05/03/20 11:14 Lorazepam (Lorazepam 0.5 Mg Tab) 0.5 mg PO HS PRN PRN Reason: Anxiety/Insomnia Stop: 04/29/20 18:10 Lorazepam (Lorazepam 0.5 Mg Tab) 0.25 mg PO Q6 PRN PRN Reason: Anxiety Stop: 05/02/20 09:19 Last Admin: 04/03/20 13:31 Dose: 0.25 mg Documented by: Magnesium Hydroxide (Magnesium Hydroxide Susp 30 Ml Udc) 30 ml PO DAILY PRN PRN Reason: Constipation Stop: 04/29/20 18:04 Mirtazapine (Mirtazapine Tab 15 Mg Tab) 15 mg PO HS JAMIE Stop: 04/29/20 20:59 Last Admin: 04/02/20 21:40 Dose: 15 mg Documented by: Pantoprazole Sodium (Pantoprazole 40 Mg Tab) 40 mg PO BID@[id number],9343 JAMIE Stop: 04/30/20 17:14 Last Admin: 04/03/20 08:02 Dose: 40 mg Documented by: Risperidone (Risperidone 0.5 Mg Tablet) 0.5 mg PO BID JAMIE Stop: 04/30/20 20:59 Last Admin: 04/03/20 08:02 Dose: 0.5 mg Documented by: Sodium Chloride (Sodium Chloride 0.65% Na Soln 45 Ml ([place])) 1 - 2 sprays NA PRN PRN PRN Reason: Nasal Dryness/Congestion Stop: 04/29/20 18:04 Mental Health & Subst Abuse Tx Psychiatrist Name of Psychiatrist: Shasha Psychiatrist's Psychiatric Appointment Comment: Will contact you to schedule an appt Therapist Name of Therapist: Shasha Mcghee Therapist's Date of Therapist Appointment: 04/24/20 Time of Therapist Appointment: 8:45 am (in person - [address] [place], [place]) Therapy Appointment Comment: Attempting to get you a sooner appt - will contact you Motor Coach Tour Operator Name of Motor Coach Tour Operator: . Post Discharge Appointments Primary Care Physician Name Of Family Doctor: Shasha Andrade [facility] Date of Appointment with PCP: 04/06/20 Time of Appointment with PCP: 1:25 p.m. Provider Appointment Comment: [address] [place], [place] Specialist Name of Specialist: [facility] - Dr. Hernandez Date of Appointment with Specialist: 05/18/20 Time of Appointment with Specialist: 9:30 a.m. Contact Information Discharge Discharge Address: [address] [place] [address] (1) Depression Depression Type: unspecified Qualified Code(s): F32.9 - Major depressive disorder, single episode, unspecified
[2020-04-03] MEDS: CLOTRIMAZOLE 1% CR 15 GM TUBE EXT SCH ×2 (14:34→21:20)
[2020-04-03] MEDS: MIRTAZAPINE TAB 15 MG TAB PO SCH (21:15)
[2020-04-04] MEDS: LORazepam 0.5 MG TAB PO PRN (06:39)
[2020-04-04] MEDS: PANTOprazole 40 MG TAB PO SCH (08:12)
[2020-04-04] MEDS: risperiDONE 0.5 MG TABLET PO SCH (08:12)
[2020-04-04] MEDS: CLOTRIMAZOLE 1% CR 15 GM TUBE EXT SCH (08:13)
[2020-04-04] MEDS ORDERED: DESTROY THIS MEDICATION ONE (08:37)
--- NOTE | 2020-04-04 09:15 | Discharge Summary ---
Date of Service April 04, 2020 History of Present Illness The patient is a 64-year-old woman with no known previous psychiatric history prior to the current episode. She reports that beginning last spring (2019) she began to be aware that she was becoming anxious and "shaky." In December 2019 she noticed a substantial increase in her level of anxiety which she describes as being a persistent sense that something "bad" is about to happen, even though she knows with certainty that it is not. She reports feeling "jumpy" and notes that she would be physically startled by "just about anything, such as a noise or someone coming up behind her." The symptoms seem to progress and by late January/early February she was aware that she was also experiencing a markedly depressed mood. Associated with a depressed mood was difficulty with sleep initiation and solvent mixer awakening, crying spells, several episodes of extreme anxiety during which she describes her self is feeling "terrified" and unable to sit still, but without noted palpitations, shortness of breath, or chest pain. She also noticed that she was withdrawing from other people, did not enjoy her usual activities, and was having difficulty concentrating and focusing. She also experienced various physical symptoms, including a sense of fullness in her throat and upper torso, worsening numbness, tingling and burning in her toes that seem to migrate upward towards her knees, and worsening tremors, primarily involving her hands. During this period of time the patient was referred to the [facility] endocrinology group, after it was noted on laboratory test that she had hypercalcemia. At the [facility] endocrinology group she saw a Dr. Hernandez. According to Dr. Hernandez's note, the patient's chief complaint was "anxiety and depression." Studies revealed that the patient was suffering from a parathyroid adenoma with associated hyperparathyroidism and hypercalcemia. Possibly because the patient's chief complaint had been anxiety depression, and because the patient's serum calcium level was not markedly high, it was suggested that she first seek treatment for her anxiety and depression before additional steps were taken to manage her hyperparathyroidism and hypercalcemia. According the patient, following this advice, the patient presented to the emergency room, reported to that she was experiencing suicidal thoughts, combined with an inability to function independently because of her extreme anxiety depression, and the patient was admitted voluntarily to the behavioral health unit for further observation and treatment. Physical Exam Psychiatric Orientation: alert and cooperative Apperance: appropriately dressed, appropriately groomed and appeared stated age Eye Contact: good eye contact Motor Behavior: steady gait and station and no abnormal motor movements Speech: normal rate/rhythm/volume of speech Affect: euthymic affect mildly anxious "pretty good." Thought Process: goal directed thought process Suicidal Thoughts: denies suicidal thoughts Homicidal Thoughts: denies homicidal thoughts Hallucinations: no auditory hallucinations and no visual hallucinations Cognition: recent memory grossly intact, attention grossly intact and language grossly intact Insight: + fair insight Judgement: + fair judgement Vital Signs (Past 24 Hours) Last Vital Signs Temp 36.7 C 04/04/20 06:00 Pulse 84 04/04/20 06:45 Resp 18 04/04/20 06:00 BP 118/75 04/04/20 06:45 Pulse Ox 97 04/02/20 21:44 Principal Diagnosis Major depressive disorder, single episode, severe without psychosis Anxiety NOS Hyperparathyroidism Psychiatric Data Patient was hospitalized for 5 days, medications were adjusted as reviewed below. She attended and participated in groups and therapy, completed a discharge safety plan, and had a family meeting with her on 04/02/2020. He was supportive, stated this is the first time she has struggled with mental health issues, and was upset that her central office technician would not address her hyperparathyroidism. Her diagnoses were reviewed and education provided. She reported and demonstrated improvement in mood and anxiety throughout the course of her stay, resolution of suicidal thoughts, and was tending to ADLs independently. Day of Discharge Assessment Patient reports mood is improved, denies SI, and reports excitement about going home. She reports improved sleep and appetite. She is tolerating medications well and thinks they are helping, but reports feeling slightly lightheaded in the morning. She feels safe going home and denies acute safety concerns. Reviewed her medications and prescriptions sent. Transition of Care Transition Of Care Record: was reviewed with the patient Advance Directives Advance Directives Information Provided: No Advance Directives: No Mental Health Advance Directive: No Advance Directives on File: No Living Will: No Power of Fixing Machine Operator: No Advance Directives Reason:: Declines as Mental Health Visit. Risk Factors Assessment Risk factors were mitigated by admission to the inpatient unit, use of medications to target mood and anxiety symptoms, education about her diagnoses and the treatment recommendations, treatment of comorbid medical conditions, attending and participating in groups and therapy, working on healthy coping skills and a discharge safety plan, family meeting with her , and referral for outpatient medical and mental health treatment. She has demonstrated improvement in mood and anxiety, resolution of suicidal thoughts, is taking medications as prescribed and reporting benefit, eating and sleeping well, and tending to ADLs independently. She is requesting discharge, and as she is no longer at acute risk of harm to herself, can be managed as an outpatient at this time. No risk factors for harm to others. 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 Relationships: Yes Supportive Family: Yes Good Rapport with Provider: Yes Absence of Any Risk Factors Above: No Tobacco Cessation at Discharge Tobacco Cessation Medication Prescribed at Discharge: Not Applicable/Non-Smoker Total Time Total Time Spent: Greater Than 30 Minutes Total Time Includes: Examination of the patient, Discharge Planning and Medication Reconciliation Discharge Data Lab Results 03/30/20 03/30/20 03/30/20 14:04 14:04 14:14 WBC 7.97 RBC 4.55 Hgb 13.0 Hct 39.1 MCV 85.9 MCH 28.6 MCHC 33.2 RDW Std Deviation 43.1 RDW Coeff of Sammi 13.8 Plt Count 232 MPV 9.7 Immature Gran % (Auto) 0.3 Neut % (Auto) 68.5 Lymph % (Auto) 24.1 Bossier % (Auto) 6.0 Eos % (Auto) 0.8 Baso % (Auto) 0.3 Neut # (Auto) 5.47 Lymph # (Auto) 1.92 [place]ier # (Auto) 0.48 Eos # (Auto) 0.06 Baso # (Auto) 0.02 Immature Gran # (Auto) 0.02 Sodium Potassium Chloride Carbon Dioxide Anion Gap BUN Creatinine Est Cr Clr Drug Dosing Est GFR ( Amer) Est GFR (Non-Af Amer) BUN/Creatinine Ratio Glucose POC Glucose Calcium Total Bilirubin AST ALT Alkaline Phosphatase Total Protein Albumin Globulin Albumin/Globulin Ratio TSH Urine Color Yellow Urine Appearance Cloudy A Urine pH 5.5 Ur Specific Laurel 1.015 Urine Protein Negative Urine Glucose (UA) Negative Urine Ketones Negative Urine Blood 2+ H Urine Nitrite Negative Urine Bilirubin Negative Urine Urobilinogen Negative Ur Leukocyte Esterase Negative Urine WBC (Auto) 1-5 Urine RBC (Auto) 5-10 H U Hyaline Cast (Auto) 1-5 U Epithel Cells (Auto) 20-30 H Urine Bacteria (Auto) Negative Salicylates Urine Opiates Screen Cancelled Ur Methadone, Qual Cancelled Acetaminophen Urine Barbiturates Cancelled Ur Phencyclidine (PCP) Cancelled U Amphetamin/Meth Scrn Cancelled MDMA (Ecstasy) Screen Cancelled U Benzodiazepines Scrn Cancelled Ur Cocaine Metabolite Cancelled U Marijuana (THC) Screen Cancelled Ethyl Alcohol mg/dL COVID-19 Eval Order SARS-CoV-2, RNA, NAAT 03/30/20 03/30/20 03/30/20 14:14 14:14 14:14 WBC RBC Hgb Hct MCV MCH MCHC RDW Std Deviation RDW Coeff of Sammi Plt Count MPV Immature Gran % (Auto) Neut % (Auto) Lymph % (Auto) Boss[place] % (Auto) Eos % (Auto) Baso % (Auto) Neut # (Auto) Lymph # (Auto) [place] # (Auto) Eos # (Auto) Baso # (Auto) Immature Gran # (Auto) Sodium 140 Potassium 3.7 Chloride 107 Carbon Dioxide 26 Anion Gap 6.0 BUN 15 Creatinine 0.94 Est Cr Clr Drug Dosing 48.7 Est GFR ( Amer) 73.3 Est GFR (Non-Af Amer) 63.2 BUN/Creatinine Ratio 16.2 Glucose 135 H POC Glucose Calcium 10.7 H Total Bilirubin 0.6 AST 18 ALT 23 Alkaline Phosphatase 88 Total Protein 7.8 Albumin 3.9 Globulin 3.9 Albumin/Globulin Ratio 1.0 TSH 1.180 Urine Color Urine Appearance Urine pH Ur Specific Laurel Urine Protein Urine Glucose (UA) Urine Ketones Urine Blood Urine Nitrite Urine Bilirubin Urine Urobilinogen Ur Leukocyte Esterase Urine WBC (Auto) Urine RBC (Auto) U Hyaline Cast (Auto) U Epithel Cells (Auto) Urine Bacteria (Auto) Salicylates < 1.7 L Urine Opiates Screen Ur Methadone, Qual Acetaminophen < 2 L Urine Barbiturates Ur Phencyclidine (PCP) U Amphetamin/Meth Scrn MDMA (Ecstasy) Screen U Benzodiazepines Scrn Ur Cocaine Metabolite U Marijuana (THC) Screen Ethyl Alcohol mg/dL < 3.0 COVID-19 Eval Order SARS-CoV-2, RNA, NAAT 03/30/20 03/30/20 03/30/20 14:50 14:55 14:55 WBC RBC Hgb Hct MCV MCH MCHC RDW Std Deviation RDW Coeff of Sammi Plt Count MPV Immature Gran % (Auto) Neut % (Auto) Lymph % (Auto) [place] % (Auto) Eos % (Auto) Baso % (Auto) Neut # (Auto) Lymph # (Auto) [place] # (Auto) Eos # (Auto) Baso # (Auto) Immature Gran # (Auto) Sodium Potassium Chloride Carbon Dioxide Anion Gap BUN Creatinine Est Cr Clr Drug Dosing Est GFR ( Amer) Est GFR (Non-Af Amer) BUN/Creatinine Ratio Glucose POC Glucose Calcium Total Bilirubin AST ALT Alkaline Phosphatase Total Protein Albumin Globulin Albumin/Globulin Ratio TSH Urine Color Urine Appearance Urine pH Ur Specific Laurel Urine Protein Urine Glucose (UA) Urine Ketones Urine Blood Urine Nitrite Urine Bilirubin Urine Urobilinogen Ur Leukocyte Esterase Urine WBC (Auto) Urine RBC (Auto) U Hyaline Cast (Auto) U Epithel Cells (Auto) Urine Bacteria (Auto) Salicylates Urine Opiates Screen Neg Ur Methadone, Qual Neg Acetaminophen Urine Barbiturates Neg Ur Phencyclidine (PCP) Neg U Amphetamin/Meth Scrn Neg MDMA (Ecstasy) Screen Neg U Benzodiazepines Scrn Neg Ur Cocaine Metabolite Neg U Marijuana (THC) Screen Neg Ethyl Alcohol mg/dL COVID-19 Eval [facility] SARS-CoV-2, RNA, NAAT NEGATIVE 04/01/20 04/03/20 17:04 08:05 WBC RBC Hgb Hct MCV MCH MCHC RDW Std Deviation RDW Coeff of Sammi Plt Count MPV Immature Gran % (Auto) Neut % (Auto) Lymph % (Auto) [place] % (Auto) Eos % (Auto) Baso % (Auto) Neut # (Auto) Lymph # (Auto) [place]ier # (Auto) Eos # (Auto) Baso # (Auto) Immature Gran # (Auto) Sodium Potassium Chloride Carbon Dioxide Anion Gap BUN Creatinine Est Cr Clr Drug Dosing Est GFR ( Amer) Est GFR (Non-Af Amer) BUN/Creatinine Ratio Glucose POC Glucose 97 Calcium 9.9 Total Bilirubin AST ALT Alkaline Phosphatase Total Protein Albumin Globulin Albumin/Globulin Ratio TSH Urine Color Urine Appearance Urine pH Ur Specific Laurel Urine Protein Urine Glucose (UA) Urine Ketones Urine Blood Urine Nitrite Urine Bilirubin Urine Urobilinogen Ur Leukocyte Esterase Urine WBC (Auto) Urine RBC (Auto) U Hyaline Cast (Auto) U Epithel Cells (Auto) Urine Bacteria (Auto) Salicylates Urine Opiates Screen Ur Methadone, Qual Acetaminophen Urine Barbiturates Ur Phencyclidine (PCP) U Amphetamin/Meth Scrn MDMA (Ecstasy) Screen U Benzodiazepines Scrn Ur Cocaine Metabolite U Marijuana (THC) Screen Ethyl Alcohol mg/dL COVID-19 Eval Order SARS-CoV-2, RNA, NAAT Hospital Course (1) Suicidal ideation: 03/31 -The patient has been admitted to the locked behavioral health unit at [facility]. She has been placed on suicide precautions and is being closely observed for safety. She has been referred for individual, group, and recreational therapy. She will also be offered family interventions. -Although the patient says that she has not yet formulated a plan for suicide, she is alarmed that her thoughts of suicide have been progressive and more intense. Patient does contract for safety on the unit and has agreed to advise as if the suicidal thoughts worsen or if she develops thoughts of harming herself physically on the unit. Reviewed 04/01/2020. 04/03--resolved on 04/02 04/04 - Resolved. Patient able to review safety plan. (2) Depression: 03/31 -The patient notes that she has been taking mirtazapine 15 mg at bedtime for sleep and depression, and she notes that "usually" it is helpful to her, although she reports that last night she slept poorlypossibly because she was in a hospital since giving to her daughter 45 years ago. Patient is reluctant to consider an increase in mirtazapine at this time. She make statements such as "nerve medicines seem to not agree with me." -Given the patient's conviction that "nerve medications" make her symptoms worse, and because she is reluctant to try an increase in her dose of mirtazapine, I am recommending that we hold off for a day or 2 before discussing the use of a selective serotonin reuptake inhibitor. She has not had a trial of an SSRI, and given her chief complaint is really anxiety, more than depression, I would imagine that medication such as Lexapro, Prozac or Zoloft may be helpful. -In the meantime, she does seem to have responded favorably to a trial dose of risperidone 0.5 mg orally. We have started risperidone 0.5 mg twice daily, with her next dose scheduled for this evening. Eventually, we expect that risperidone will be, a "rescue" medication for anxiety, but the current goal is to first relieve the patient's anxiety to the degree that she will be better able to participate in various therapies offered on the unit. Reviewed 04/01/2020. Tolerating Risperdal. 04/02--if dizzy and tachy persist may need to shift Risperdal or d/c in favor of Abilify. 04/03--improved, no evidence of cognitive or gait impairment on current meds and BP improved. 04/04 - Mood improved, SI resolved. Discharge to home. Reviewed discharge safety plan, will follow up with saw for psychiatry and therapy (they will call her to schedule). -Rx for risperidone issued, reviewed with patient that lightheadedness may resolve but if not to discuss with her outpatient psychiatrist, and that she may be able to taper off this medication after she's had a period of stability. Rev iewed risks and side effects, including need for monitoring of metabolic syndrome/fasting labs. (3) Anxiety: 03/31 -The patient tells us that she feels that anxiety is her major problem, and that her depression is largely subsequent to the negative effects of being chronically anxious. -She reports various physical symptoms including symptoms that are suggestive of gastroesophageal reflux (fullness in throat and midline upper torso, and some difficulty swallowing at times --"it feels like [food] gets stuck." We will offer the patient a trial of Protonix 40 mg twice a day before meals. -It is not clear at this point whether the patient's hypercalcemia contributed the patient's anxiety will and, if so, to what degree. Hypercalcemia, particularly episodic hypercalcemia has been associated with anxiety symptoms as well as mood alterations. Currently, her plan is to treat both anxiety/depression as well as hypercalcemia. -We will start cinacalcet 30 mg twice daily. Because this medication is not available on the [facility] formulary, and because it is not available at her local pharmacy in [facility], we have ordered it through [employer] in [facility] in [place]. Her and daughter have been contacted and have agreed to citrus picker the fill prescription at the pharmacy and bring it to the front desk host, from which it will be taken to the behavioral health unit, and then to the pharmacy for verification and distribution. Reviewed 04/01/2020. Given written med list, has both Vistaril and Ativan prns. 04/02--consolidate prns, d/c Vistaril, monitor sleep and bp. 04/03--tolerating low dose Ativan. 04/04 - Continue lorazepam 0.25mg as needed, up to TID. Reviewed risks and side effects with patient, including risk of sedation, cognitive impairment, falls, sedation, tolerance, and addiction. Advised that she should not drive after taking this medication, and she agreed (states does all the driving). Advised to use only for short term (1-2 weeks) and only when behavioral techniques to manage anxiety are ineffective. (4) Hypercalcemia: 03/31 -In consultation with a Dr. Hickey of the [facility] endocrinology group, the patient will be started on Cinacalcet 30 mg twice a day (with food). Material risks and anticipated benefits of this medication have been reviewed with the patient. She asked several questions indicated understanding. -Her serum calcium level will be repeated on 04/03/2020 Reviewed 04/01/2020. 04/03--case reviewed with Dr. Hernandez ([employer], ), based on normal calcemia, overall mild hypercalcemia would d/c Cinacalcet. Reports patient should contact her upon discharge for a urgent work in appt. States that vitamin D should be held for another week before restarting supplement. (5) Hyperparathyroidism: 04/04 - Follow up with Dr. Hernandez on 05/18 scheduled, but she would like patient to see her earlier- have given patient her contact number to call. Mental Health & Subst Abuse Tx Psychiatrist Name of Psychiatrist: Shasha Psychiatrist's Psychiatric Appointment Comment: Will contact you to schedule an appt Therapist Name of Therapist: Shasha Mcghee Therapist's Date of Therapist Appointment: 04/24/20 Time of Therapist Appointment: 8:45 am (in person - [address], [place]) Therapy Appointment Comment: Attempting to get you a sooner appt - will contact you Drier Operator Name of Drier Operator: . Post Discharge Appointments Primary Care Physician Name Of Family Doctor: Shasha - Dr. Andrade Primary Care Date of Appointment with PCP: 04/06/20 Time of Appointment with PCP: 1:25 p.m. Provider Appointment Comment: [address] [place] Specialist Name of Specialist: [facility] - Dr. Hernandez Date of Appointment with Specialist: 05/18/20 Time of Appointment with Specialist: 9:30 a.m. Smoking Cessation Counseling Tobacco Cessation Medication Prescribed at Discharge: Not Applicable/Non-Smoker Contact Information Discharge Discharge Address: [address] [place] [address] Discharge Plan Discharge Items Patient Disposition: Home - Self-Care Reason For Visit: ANXIETY SECONDARY TO GENERAL MEDICAL CONDITION Discharge Diagnosis: Major depressive disorder Anxiety not otherwise specified Hyperparathyroidism Activity: Per Instructions section Non-emergency contact: Primary Care Provider Call non-emergency contact if: you have any medication questions and your symptoms worsen Follow-up/Referrals: Stan Andrade MD [Primary Care Provider] - Diet: Low Fiber Addtl Attending Provider Instructions: SPECIAL CARE INSTRUCTIONS: 1. Follow through with your scheduled aftercare appointments. If unable to keep an appointment, please call to reschedule. Dr. Hernandez (central office technician, ). She requested you contact her upon discharge for a urgent appointment. You should HOLD vitamin D for another week before restarting supplement. Shasha is going to contact you with a psychiatry appointment. 2. Take your medication only as prescribed. Medication should not be changed or stopped without the approval of your doctor. In the event of worsening symptoms or concerns about side effects, contact your doctor immediately. Ativan should be taken only as needed for severe anxiety that does not respond to behavioral/relaxation techniques. It is addictive and can cause many side effects, including sedation, confusion, memory impairment, tolerance and addiction. You should not drive or operate heavy machinery after taking it. You should only use it for short term (1-2 weeks) treatment of anxiety. 3. Utilize new healthy coping skills, anger management skills, and stress management skills learned during your hospitalization. Journal feelings and process them with a support person. Identify stressors or situations that may result in relapse, deterioration or inappropriate behaviors and develop a plan to deal with those issues. 4. If your coping skills are ineffective and you are in crisis, contact your outpatient providers for direction. If unable to reach your providers, please call the [facility] CRISIS LINE AT , go to the [facility] walk-in center at [address], [address], [place], or go to the closest Emergency Room. 5. Avoid alcohol and un-prescribed drugs. 6. You have been provided with the Mental Health Advance Directives Pamphlet for your review. AFTERCARE APPOINTMENTS: * Please call your insurance company prior to your scheduled appointment to confirm your aftercare providers are covered. Take your insurance information to your appointments. WHO TO CALL AND WHEN: Medical Emergencies: For questions or emergencies related to your hospital stay, please contact the Inpatient Behavioral Health Unit at [phone]. A division merchandise manager is on-call 20/01 for the Behavioral Health Unit for emergencies At any time you feel your situation is an emergency, you may also call 911 immediately. Pending Studies at Discharge: No Stand-Alone Forms: [facility], Smoking Cessation, Suicide Prevention Resources Medications and DC Order Prescriptions: New risperidone 0.5 mg Tablet 0.5 mg PO BID Qty: 60 RF: 0 pantoprazole 40 mg Tablet,Delayed Release (Dr/Ec) 40 mg PO BID@0830,1715 Qty: 60 RF: 0 Continued mirtazapine [Remeron] 15 mg tablet 15 mg PO DAILY RF: 0 cholecalciferol (vitamin D3) 50 mcg (2,000 unit) capsule 50 mcg PO DAILY RF: 0 Changed lorazepam 0.5 mg tablet 0.25 mg PO TID PRN (Reason: anxiety) Qty: 0 RF: 0 Discontinued lorazepam 0.5 mg tablet 0.5 mg PO Q6H PRN (Reason: anxiety) RF: 0 Discharge Orders: Discharge Order (Routine); Ordered 04/04/20 Ordered By: Mariana Rossi Admission Data Admit Date/Time: 03/30/20 18:05 Attending Provider: Mariana Rossi Admit Provider: Ceci Damon Primary Care Provider: Stan Andrade Other Interventions: Discharge Summary Assessment (RN) Last Done: 04/04/20 10:11 PSY Interdisciplinary Discharge Planning Last Done: 04/04/20 10:09 Coding Level of Care Code 03998 D/C day mgmt > 30 min Diagnoses Suicidal ideation R45.851 Depression F32.9 Depression Type: unspecified Anxiety F41.9 Hypercalcemia E83.52 Hyperparathyroidism E21.3
== END 2020-04-04 10:45 | disposition home or self-care (01) | DRG 880 ==
LOC: ED 13:39 → 3S 17:52 → SUATTDRO 18:05

== ENCOUNTER 2020-09-13 11:36 | Inpatient (IN) ==
--- NOTE | 2020-09-13 12:10 | Emergency Department Note ---
Impression & Plan Confusion, Anxiety, Suicidal ideation, Noncompliance with medications ED Provider Note NAME: WILLA BILL AGE: 65 SEX: F : 1955 ARRIVES VIA: Walk-In INFORMANT: [Patient][] ED PROVIDER(S): [Scott Doran MD] CHIEF COMPLAINT: Anxiety, shaking HISTORY OF PRESENT ILLNESS: The patient is a 65-year-old female who presents with anxiety and shaking. She states that she cannot think straight. The patient has a history of anxiety. She was in this hospital's psychiatric facility and discharged in early June. As per the patient's , the patient's mental state has declined in the last 2 months. The patient has stopped all her medications as she thinks these are not helping. The patient states that she was told that she should see a neurologist, she has been unsuccessful in finding a neurologist to see. Everyone is booked. There has been no cough or cold or congestion. No chest pain. The patient has had some suicidal thoughts. She has thought about cutting herself with a knife. She does not want to be in the world anymore, she does not want to feel like this anymore. The patient's believes the patient worsened suddenly when her grandchild's other grandmother . The patient is refusing to take Ativan as she thinks this makes her feel even worse. REVIEW OF SYSTEMS: See HPI for pertinent positives and negatives. A total of ten systems were reviewed and were otherwise negative. PMHx/PSHx: See Below SOCIAL HISTORY: See Below. PHYSICAL EXAM: GENERAL: Patient is in moderate distress, anxious, pacing in the room. HEENT: No acute trauma, normocephalic atraumatic, mucous membranes moist, no nasal congestion, no scleral icterus. NECK: No stridor, no adenopathy, no meningismus, trachea is midline. LUNGS: Clear to auscultation bilaterally, no wheeze, no rhonchi, breath sounds equal. HEART: Without murmurs gallops or rubs, regular rate and rhythm. ABDOMEN: Soft, nontender, bowel sounds positive, no hernias, no peritonitis. EXTREMITIES: No cyanosis or edema, full range of motion of all the joints without pain or difficulty, no signs for acute trauma. NEUROLOGIC: Awake and alert, anxious, her hands are trembling. No focal motor findings. No speech slur. She does occasionally stutter. SKIN: No rash, no jaundice, no diaphoresis. DIFFERENTIAL DIAGNOSIS: Mood disorder, infection, hypoglycemia/hyperglycemia, stroke, medication noncompliance, suicidal ideation, electrolyte abnormalities, cardiac sources, intracerebral event, toxicologic etiology, trauma, neurologic event, psychosis, as well as other pathologies. EMERGENCY DEPARTMENT COURSE/PROCEDURES: ECG: Indication was tachycardia and agitation. The ECG shows a normal sinus rhythm with a rate of 81. There is no ST elevation, no PVCs. The QTc is 439. Continuous Cardiac Monitoring: An order was placed for continuous cardiac monitoring. The monitor shows a rate of 85 with normal sinus rhythm. MEDICAL DECISION MAKING: There is no leukocytosis or concerning anemia. There is a normal platelet count. No significant electrolyte abnormality or kidney failure. No concerning liver enzyme elevation. The patient appears to be in a euthyroid state. Urinalysis does not show infection. Aspirin, Tylenol and alcohol levels are undetectable. Brain CT shows no acute bleed or mass-effect. ECG shows a sinus rhythm, no acute ischemia. Covid test returned negative. On exam, the patient was shaky and extremely anxious. There was no speech slur, no focal extremity neurologic deficit. She was pacing in the room. The patient was willing to try some medication to help with her symptoms. She was given IV Valium, 2.5 mg. She received a second dose of IV Valium as the first dose did seem to help. She was given a 500 cc saline bolus. Patient was reassured by her negative medical work-up. I think her primary is chidi is anxiety. She does admit that she is suicidal. She has thought about hurting herself with a knife. She is currently voluntary and willing to accept help. The patient was felt medically clear. She was seen by psychiatry case management. A bed search is underway. Patient's care is being assumed by Dr. Meyer at the change of shift. Past Med/Surg History Medical History Anxiety Hyperparathyroidism Multinodular goiter Primary hyperparathyroidism Suicidal ideation Thyroid nodule Vitamin D deficiency Family History Mother Thyroid disease Social History Smoking Status: Never smoker Hx Alcohol Use: No Preferred Language: Chinese Communication Ability: Effective Beliefs That Will Affect Care: None marital status: Feels Safe at Home: Yes Assistive Devices: Glasses Allergies Allergies Allergy/AdvReac Type Severity Reaction Status Date / Time codeine Allergy Unknown Unknown Verified 09/13/20 13:25 morphine Allergy Unknown Verified 09/13/20 13:25 Anxiety Medications AdvReac see comment Uncoded 09/13/20 13:25 Home Meds Home Medications Medication Instructions Recorded Confirmed No Known Home Medications 09/13/20 09/13/20 Results & Data (ED) Vital Signs Vital Signs - 24 hr 09/13/20 11:37 09/13/20 14:08 09/13/20 14:09 Temperature 36.3 C L Temperature Source Temporal Artery Scan Pulse Rate 98 H Pulse Rate [Right Finger] 76 Respiratory Rate 20 20 Respiratory Effort / Characteristics Spontaneous Non-Labored Spontaneous Respiratory Depth Normal Respiratory Pattern Regular Blood Pressure 154/79 H Blood Pressure [Right Arm] 132/61 Blood Pressure Mean 104 Blood Pressure Mean [Right Arm] 84 Blood Pressure Position Sitting Pulse Oximetry 97 98 98 Oxygen Delivery Method Room Air Room Air Room Air Sepsis Recent Fever Within 48 Hours No Sepsis New/Unexplained Change in Mental Status No Sepsis Action Taken by Nursing No Action Required Home Medications Current Medication List: was personally reviewed by me Laboratory Data Attestation: I reviewed the patient's lab results. Result diagrams: 09/13/20 12:16 09/13/20 12:16 Lab Results 09/13/20 09/13/20 09/13/20 Range/Units 12:16 12:16 12:16 WBC 5.35 (4.8-10.8) K/uL RBC 4.65 (4.2-5.4) M/uL Hgb 13.2 (12.0-16.0) g/dL Hct 39.3 (37-47) % MCV 84.5 (80-100) fL MCH 28.4 (25-34) pg MCHC 33.6 (32-36) g/dL RDW Std Deviation 44.5 (36.4-46.3) fL RDW Coeff of Sammi 14.4 (11.5-14.5) % Plt Count 265 (130-400) K/uL MPV 10.0 (7.4-10.4) fL Immature Gran % (Auto) 0.0 % Neut % (Auto) 66.1 % Lymph % (Auto) 25.8 % [place] % (Auto) 7.7 % Eos % (Auto) 0.2 % Baso % (Auto) 0.2 % Neut # (Auto) 3.54 (1.4-6.5) K/uL Lymph # (Auto) 1.38 (1.2-3.4) K/uL [place] # (Auto) 0.41 (0.11-0.59) K/uL Eos # (Auto) 0.01 (0-0.5) K/uL Baso # (Auto) 0.01 (0-0.2) K/uL Immature Gran # (Auto) 0.00 (0.00-0.02) K/uL Sodium 139 (136-145) mmol/L Potassium 4.1 (3.5-5.1) mmol/L Chloride 107 (98-107) mmol/L Carbon Dioxide 26 (21-32) mmol/L Anion Gap 6.0 (3-11) BUN 16 (7-18) mg/dl Creatinine 0.92 (0.6-1.2) mg/dl Est Cr Clr Drug Dosing 49.1 ml/min Est GFR ( Amer) 74.7 Est GFR (Non-Af Amer) 64.4 BUN/Creatinine Ratio 17.8 (10-20) Glucose 83 (70-99) mg/dl Calcium 9.6 (8.5-10.1) mg/dl Magnesium 2.4 (1.8-2.4) mg/dl Total Bilirubin 0.7 (0.2-1) mg/dl AST 9 L (15-37) U/L ALT 20 (12-78) U/L Alkaline Phosphatase 67 (45-117) U/L Total Protein 7.9 (6.4-8.2) gm/dl Albumin 4.1 (3.4-5.0) gm/dl Globulin 3.8 (2.5-4.0) gm/dl Albumin/Globulin Ratio 1.1 (0.9-2) TSH 1.080 (0.300-4.500) uIu/ml Urine Color Urine Appearance (Clear) Urine pH (4.5-7.5) Ur Specific Spencer (1.000-1.030) Urine Protein (Negative) Urine Glucose (UA) (Negative) Urine Ketones (Negative) Urine Blood (Negative) Urine Nitrite (Negative) Urine Bilirubin (Negative) Urine Urobilinogen (Negative) Ur Leukocyte Esterase (Negative) Urine WBC (Auto) (0-5) /hpf Urine RBC (Auto) (0-4) /hpf U Hyaline Cast (Auto) (0-5) /lpf U Epithel Cells (Auto) (0-5) /lpf Urine Bacteria (Auto) (Negative) Salicylates < 1.7 L (2.8-20) mg/dl Acetaminophen < 2 L (10-30) ug/ml Ethyl Alcohol mg/dL (0-3) mg/dl SARS-CoV-2 Ag (Rapid) (Negative) 09/13/20 09/13/20 09/13/20 Range/Units 12:16 12:38 14:46 WBC (4.8-10.8) K/uL RBC (4.2-5.4) M/uL Hgb (12.0-16.0) g/dL Hct (37-47) % MCV (80-100) fL MCH (25-34) pg MCHC (32-36) g/dL RDW Std Deviation (36.4-46.3) fL RDW Coeff of Sammi (11.5-14.5) % Plt Count (130-400) K/uL MPV (7.4-10.4) fL Immature Gran % (Auto) % Neut % (Auto) % Lymph % (Auto) % [place] % (Auto) % Eos % (Auto) % Baso % (Auto) % Neut # (Auto) (1.4-6.5) K/uL Lymph # (Auto) (1.2-3.4) K/uL [place] # (Auto) (0.11-0.59) K/uL Eos # (Auto) (0-0.5) K/uL Baso # (Auto) (0-0.2) K/uL Immature Gran # (Auto) (0.00-0.02) K/uL Sodium (136-145) mmol/L Potassium (3.5-5.1) mmol/L Chloride (98-107) mmol/L Carbon Dioxide (21-32) mmol/L Anion Gap (3-11) BUN (7-18) mg/dl Creatinine (0.6-1.2) mg/dl Est Cr Clr Drug Dosing ml/min Est GFR ( Amer) Est GFR (Non-Af Amer) BUN/Creatinine Ratio (10-20) Glucose (70-99) mg/dl Calcium (8.5-10.1) mg/dl Magnesium (1.8-2.4) mg/dl Total Bilirubin (0.2-1) mg/dl AST (15-37) U/L ALT (12-78) U/L Alkaline Phosphatase (45-117) U/L Total Protein (6.4-8.2) gm/dl Albumin (3.4-5.0) gm/dl Globulin (2.5-4.0) gm/dl Albumin/Globulin Ratio (0.9-2) TSH (0.300-4.500) uIu/ml Urine Color Yellow Urine Appearance Clear (Clear) Urine pH 5.0 (4.5-7.5) Ur Specific Spencer 1.027 (1.000-1.030) Urine Protein Negative (Negative) Urine Glucose (UA) Negative (Negative) Urine Ketones Negative (Negative) Urine Blood 1+ H (Negative) Urine Nitrite Negative (Negative) Urine Bilirubin Negative (Negative) Urine Urobilinogen Negative (Negative) Ur Leukocyte Esterase Negative (Negative) Urine WBC (Auto) 1-5 (0-5) /hpf Urine RBC (Auto) 0-4 (0-4) /hpf U Hyaline Cast (Auto) 1-5 (0-5) /lpf U Epithel Cells (Auto) 10-20 H (0-5) /lpf Urine Bacteria (Auto) Negative (Negative) Salicylates (2.8-20) mg/dl Acetaminophen (10-30) ug/ml Ethyl Alcohol mg/dL < 3.0 (0-3) mg/dl SARS-CoV-2 Ag (Rapid) Negative (Negative) Administered Medications Discontinued Medications Diazepam (Diazepam 5 Mg/Ml Inj 10ml Vial) 2.5 mg IV NOW STA Stop: 09/13/20 12:04 Last Admin: 09/13/20 12:51 Dose: 2.5 mg Documented by: [id number] Diazepam (Diazepam 5 Mg/Ml Inj 10ml Vial) 2.5 mg IV NOW STA Stop: 09/13/20 13:57 Last Admin: 09/13/20 14:07 Dose: 2.5 mg Documented by: [id number] Sodium Chloride (Nss) 500 mls @ 999 mls/hr IV .Q31M JAMIE Stop: 09/13/20 12:45 Last Infusion: 09/13/20 13:25 Dose: 0 mls/hr Documented by: [id number] Admin: 09/13/20 12:50 Dose: 999 mls/hr Documented by: [id number] Imaging Data Radiologist's Impression: HEAD CT NONCONTRAST CT DOSE: 537.48 mGy.cm HISTORY: confusion TECHNIQUE: Multiaxial CT images of the head were performed without the use of intravenous contrast. Automated exposure control was utilized for this study. A dose lowering technique was utilized adhering to the principles of ALARA. Comparison: None. Findings: The paranasal sinuses and mastoid air cells are clear. The calvarium and skull base are intact. The ventricles and sulci are within normal limits. There is no mass, hematoma, midline shift, or acute infarct. Impression: No acute intracranial abnormality. Discharge Plan Visit Data Chief Complaint: Mental Health Evaluation Stated Complaint: STUTTERING, TREMORS ED Provider: Scott Doran Discharge Problem: Confusion, Anxiety, Suicidal ideation, Noncompliance with medications Patient Disposition: Still a Patient Condition: Good Forms Stand Alone Forms: My [employer], Suicide Prevention Resources Prescriptions Prescriptions: No Action No Known Home Medications RF: 0 Referrals Referrals: Stan Andrade MD [Primary Care Provider] -
[2020-09-13] MEDS ORDERED: SODIUM CHLORIDE 0.9% 500 ML IV SCH (12:15)
[2020-09-13 12:43] LABS: Basophils # (auto) 0.01 K/uL (0-0.2); Basophils % (auto) 0.2 %; Eosinophils # (auto) 0.01 K/uL (0-0.5); Eosinophils % (auto) 0.2 %; Hematocrit (blood only) 39.3 % (37-47); Hemoglobin 13.2 g/dL (12.0-16.0); Lymphocytes # (auto) 1.38 K/uL (1.2-3.4); Lymphocytes % (auto) 25.8 %; Mean Corpuscular Hemoglobin 28.4 pg (25-34); Mean Corpuscular Hgb Conc 33.6 g/dL (32-36); Mean Corpuscular Volume 84.5 fL (80-100); Monocytes # (auto) 0.41 K/uL (0.11-0.59); Monocytes % (auto) 7.7 %; Neutrophils # (auto) 3.54 K/uL (1.4-6.5); Neutrophils % (auto) 66.1 %; Platelet Count 265 K/uL (130-400); RDW Coefficient of Variation 14.4 % (11.5-14.5); RDW Standard Deviation 44.5 fL (36.4-46.3); Red Blood Count 4.65 M/uL (4.2-5.4); White Blood Count 5.35 K/uL (4.8-10.8)
[2020-09-13 13:00] LABS: Albumin Level 4.1 gm/dl (3.4-5.0); BUN Creatinine Ratio 17.8 (10-20); Calcium 9.6 mg/dl (8.5-10.1); Creatinine Clr Calc Pharmacy 49.1 ml/min; Est GFR (African American) 74.7; Est GFR (Non-African American) 64.4; Magnesium 2.4 mg/dl (1.8-2.4); Potassium 4.1 mmol/L (3.5-5.1)
[2020-09-13 13:11] LABS: Albumin Globulin Ratio 1.1 (0.9-2); Bilirubin,Total 0.7 mg/dl (0.2-1); Globulin 3.8 gm/dl (2.5-4.0); Thyroid Stimulating Hormone 1.08 uIu/ml (0.300-4.500); Total Protein 7.9 gm/dl (6.4-8.2)
--- NOTE | 2020-09-13 13:14 | CT Scan Report ---
HEAD CT NONCONTRAST CT DOSE: 537.48 mGy.cm HISTORY: confusion TECHNIQUE: Multiaxial CT images of the head were performed without the use of intravenous contrast. A utomated exposure control was utilized for this study. A dose lowering technique was utilized adheri ng to the principles of ALARA. Comparison: None. Findings: The paranasal sinuses and mastoid air cells are clear. The calvarium and skull base are int act. The ventricles and sulci are within normal limits. There is no mass, hematoma, midline shift, or acute infarct. Impression: No acute intracranial abnormality. ACT 112: Negative or not required by law. Electronically signed by: Guanaco Bhagat M.D. 09/13/2020 1:13 PM
[2020-09-13 13:26] LABS: Acetaminophen < 2 ug/ml (10-30)
[2020-09-13 13:27] LABS: Salicylate < 1.7 mg/dl (2.8-20)
[2020-09-13 13:45] LABS: Appearance Urine Clear (Clear); Bacteria Urine Automated Negative (Negative); Bilirubin Urine Negative (Negative); Blood Urine 1+ (Negative); Color Urine Yellow; Glucose Urine UA Negative (Negative); Ketones Urine Negative (Negative); Leukocyte Esterase Urine Negative (Negative); Nitrite Urine Negative (Negative); Protein Urine Negative (Negative); RBC Urine Automated 0-4 /hpf (0-4); Specific Gravity Urine 1.027 (1.000-1.030); Urobilinogen Urine Negative (Negative)
[2020-09-13 16:39] LABS: Amphetamines+Metham, Urine Neg (Neg); Barbiturates, Urine Neg (Neg); Benzodiazepine, Urine Neg (Neg); Cocaine, Urine Neg (Neg); MDMA (Ecstacy), Urine Neg (Neg); Methadone, Urine Neg (Neg); Opiate, Urine Neg (Neg); Phencyclidine, Urine Neg (Neg)
[2020-09-13] MEDS ORDERED: ACETAMINOPHEN 325 MG TAB PO PRN (17:22)
[2020-09-13] MEDS ORDERED: hydrOXYzine HCl 25 MG TAB PO PRN ×2 (17:22)
[2020-09-13] MEDS ORDERED: MAGNESIUM HYDROXIDE SUSP 30 ML UDC PO PRN (17:22)
[2020-09-13] MEDS ORDERED: ALUMINUM/MAGNESIUM SUSP 30 ML UDC PO PRN (17:22)
[2020-09-13] MEDS ORDERED: SODIUM CHLORIDE 0.65% NA SOLN 45 ML (OCEAN) PRN (17:22)
[2020-09-13] MEDS ORDERED: BISMUTH SUBSALICYLATE LIQD 236 ML PO PRN (17:22)
[2020-09-13] MEDS ORDERED: QUEtiapine FUMARATE 25 MG TABLET PO PRN (17:27)
--- NOTE | 2020-09-13 17:28 | Emergency Department Note ---
ED Visit Note Sign out taken from Dr. Doran at change of shift. Please see that note for details of the patients visit. Arrived pacing, shaking, and anxious. H/o anxiety where she stopped her medications 2 weeks ago when her symptoms began. Admits she was suicidal with plan to cut herself. CT head negative. Labs unremarkable and patient was medically cleared. The patient was pending psychiatric CM evaluation. Patient is voluntary at this time. Patient was seen by psychiatric community case manager and referral was placed to [facility] who accepted the patient. 201 signed. .
--- NOTE | 2020-09-14 05:57 | Electrocardiogram Report ---
Test Reason : Blood Pressure : / mmHG Vent. Rate : 081 BPM Atrial Rate : 081 BPM P-R Int : 144 ms QRS Dur : 074 ms QT Int : 378 ms P-R-T Axes : 070 -07 070 degrees QTc Int : 439 ms Normal sinus rhythm Normal ECG When compared with ECG of 19-MAR-2020 11:40, No significant change was found Confirmed by Severiano Cha ([id number]) on 09/14/2020 5:56:36 AM Referred By: REFERRED SELF Confirmed By:Severiano Cha
--- NOTE | 2020-09-14 08:39 | History & Physical ---
Date of Service September 14, 2020 Impression / Recommendations Impression 65-year-old female admitted voluntarily for inpatient psychiatric treatment on 09/13/20 after presenting to the ED with significant anxiety, inability to adequately care for self, and suicidal ideation with thoughts to use a knife to end her life. Pt has been admitted to our unit on two previous occasions with very similar presentations - 03/2020 and 05/2020. It was initially felt that the patient's anxiety may have been related to her hyperparathyroidism; however, patient had had multiple parathyroid nodules removed and hormone levels normalized prior to her 05/2020 admission and anxiety remained as significant, if not more severe. Pt admits that she had been non-compliant with medications since her last admission - stopping both quetiapine and gabapentin due to feeling the medications made her anxiety worse. Pt was seen by neurology during her 05/2020 admission, and we are requesting their assistance again as patient's concerns are ongoing. Appreciate recommendations. Will start patient on low- dose olanzapine to target significant anxiety and assist with sleep. Will encourage participation in group and recreational programming. When appropriate, will schedule a family meeting with the patient's and/or daughter. Pt will be encouraged to complete a written safety plan prior to discharge. Inpatient psychiatric admission is medically necessary at this time due to patient's significant anxiety and inability to contract for safety in the setting of suicidal thoughts. Pt is at acute risk of suicide if discharged prematurely. Dr. Mariana Rossi was directly involved in review and discussion of the patient's case and participated in medical decision making regarding treatment recommendations. (1) Suicidal ideation: 09/14 - Admitted to a locked inpatient behavioral health unit, on q15 minute safety checks. Pt denying SI with intent in the hospitals setting, but is not able to contract for safety outside of the hospital setting. - Encourage medication initiation/adjustments as indicated - Encourage participation in group and recreational therapies - Gather collateral information from outpatient providers - Suggest family meeting to involve outpatient supports in safety planning - Arrange appropriate aftercare (2) Anxiety: 09/14 - Will initiate low-dose olanzapine 2.5mg BID to target significant anxiety. Offer encouragement with medications, especially potential need for titration which is often overwhelming to the patient. Will also have a prn dose of 2.5mg available for the patient daily if needed. - Continue to offer reassurance and assist with development of healthy and effective coping strategies. - MNPR due to poor sleep, only getting 1-3 hours a night with frequent disruptions. - When appropriate, will schedule a meeting with the patient's to discuss discharge and safety planning (3) Confusion: 09/14 - MoCA completed today - patient scored a 15/30. Could not locate any previous tests with which to compare score. Highest level of education: high school graduate. - Deficits observed in the following areas: - Visuospatial/Executive (08/04): lost points for trails test and cube drawing - unrelated to patient's tremor affecting her drawing ability; contour and numbers of clock drawing were small but appropriate; one point lost for hands due to orientation of the arrows being incorrect. - Naming (08/30): though began by writing the names rather than stating them - Attention (07/05): lost one point number repetition as unable to state the series backwards. Patient missed identifying 6 "A's". Unable/unwilling to attempt serial 7 subtraction. - Language (07/02): lost one point for sentence repetition, no points awarded for fluency as patient was unable to think of a single word starting with "F" - Abstraction (0/2): no points awarded as patient was unable to offer any similarities - Delayed recall (3): patient able to recall 3/5 words without category clues. - Orientation (11/02): patient oriented with the only exception of day of the week. (4) Multiple somatic complaints: 09/14 - Pt continues to report various non-specific somatic complaints - dizziness, "burning" sensation primarily in lower extremities, restlessness, heat/cold in tolerance, etc. While these may be related to anxiety, cannot entirely rule out other etiologies for these concerns. Given the lengthy duration and limited benefit from psychotropic medication recommendations, it does seem to warrant further exploration. - Will request neurology consultation to re-evaluate patient as she continues to report various symptoms where neurological etiology cannot be ruled out. This includes ongoing restless legs, burning sensation/paresthesias in feet/legs and occasional hands/arms. Pt was started on gabapentin, but has since discontinued this medication due to believing it made her symptoms worse. Pt did have a neurology consultation during her 05/2020 admission and outpatient follow-up with EMG study was suggested. Additionally, B12, methylmalonic acid, folic acid, SPEP, thiamine, and B6 were obtained - all WNL. Pt states she was too anxious to attend this appointment, but new referral has been sent by PCP. - Pt may also be demonstrating some parkinsonian symptoms: known tremor of right hand, now also affecting left hand; slowed movements/speech; ?stutter; stooped posture; staggering/shuffling gait; and masked facies. - Pt does believe that father has a diagnosis of dementia - but was uncertain of any specific details. - Appreciate neurology assessment and recommendations. Protective Factors Assessment Employed: No Psychiatric History Identifying Data WILLA SIDDIQUI is a 65-year-old F who currently lives in [place] with her , has a history of anxiety and depression, and was admitted on 09/13/20 17:22 on a 201 voluntary commitment for worsening anxiety, SI, and inability to care for self. Chief Complaint "I had some really nasty thoughts." History of Present Illness Willa Siddiqui is a 65-year-old female admitted voluntarily for inpatient psychiatric treatment on 09/13/2020 after presenting to the ED with worsening anxiety and inability to care for self, admitting to suicidal ideation with livia nolan to use a knife to kill herself. ED documentation was reviewed and the patient states that she has not been doing well. She has stopped taking her psychotropic medications due to feeling they made her symptoms worse. Per reports, the patient has not showered in several days and is demonstrated impaired ability to care for herself at home. Suicidal thoughts reportedly developed several days prior to her admission. History of stuttering and tremor, which are exacerbated by anxiety - reportedly significant in the ED. Pt did receive 2 doses of diazepam 2.5mg in the ED for anxiety. Pt was cooperative with psychiatric assessment, though had difficulty tolerating the long duration of our conversation. Her responses to questions are often vague, and she is a somewhat limited historian in the setting of significant anxiety. Patient has a very similar presentation to her past admissions to our unit, 03/2020 and 05/2020. She admits "I had some really nasty thoughts." The patient states "I'm not on any meds. They were making my anxiety worse." Pt reports feeling as though the Seroquel "made my thoughts really bad." Pt states these symptoms have been persistent for some time, without any clearly identifiable trigger - however, she does report some recent stressors. Pt states that her daugther's [id number] recently, and states that the patient's own mother fell in 07/2020 and broke her hip. Pt becomes observably anxious while talking about her mother - squirming in her seated position in the edge of the bed, more obvious stutter, increased tremor, and wringing the bed sheets with her hand. Pt states that her mother is doing well and is back home, but the patient feels guilty for "my siblings had to handle everything. I was too messed up to even take care of myself." Pt states she is only sleeping 3 hours a night, often having to wake up and walk around due to increased restlessness, and is then unable to get back to sleep. Pt states that she tries to distract herself from the anxiety by using puzzle books or mindfulness techniques, but does not feel as though she can concentration long enough for these to be effective. Pt does admit to confused and disconnected thoughts. Pt is able to contract for safety here in the hospital setting, but does not feel that she could function at home. Past Psychiatric History Current Psychiatric Diagnosis: Depression/Anxiety Outpatient Services: Psychiatric Prescriber - JAN Pardo - [facility] Therapist - Katy Bliss - [facility] Previous Psych Admissions: [facility]: - 06/18/2020 - 07/03/2020 - 03/30/2020 - 04/04/2020 History of Previous Suicide Attempt: No Describe Attempts in the Past: None Past Medication Trials: Per previous hospital documentation: 1. Ativan 2. Remeron 3. Risperdal 4. Seroquel 5. BuSpar 6. Zoloft 7. Luvox Past Head Trauma/Neuro History History of Concussion/Seizure: No Allergies Allergy/AdvReac Type Severity Reaction Status Date / Time codeine Allergy Unknown Unknown Verified 09/13/20 13:25 morphine Allergy Unknown Verified 09/13/20 13:25 Anxiety Medications AdvReac see comment Uncoded 09/13/20 13:25 Home Medications Medication Instructions Recorded Confirmed Type No Known Home Medications 09/13/20 09/13/20 History Family History Family History of: Depression and Bipolar (sister) Alcohol History Hx of Alcohol Use Over the Past 12 Months: No AUDIT Total Score: 0 Pt reports she does not believe she has had an alcoholic beverage in "years". Smoking Use Have You Smoked or Used Tobacco Products in the Last 30 Days: No Smoking Status: Never smoker Substance History Hx of Prescription Med Misuse Over the Past 12 Months: No Hx of Over the Counter Med Misuse Over the Past 12 Months: No Hx of Inhalent Misuse Over the Past 12 Months: No Hx of Organic Substance Use Over the Past 12 Months: No Hx of Illegal Substances/Street Drug Use Over Past 12 Months: No Problems as a Result of Past Substance Use: None Identified Denies current use or previous heavy experimentation with illicit substances. Denies abuse of prescription medications. Personal History Living Arrangements: Home (in [place] with ) Born In: The patient was born in [facility] and raised by both ma rents. Highest Grade Completed: High School Graduate Employment Status: Retired Marital Status: (to of 50+ years) Number Of Children: 1 adult daughter, a young-adult granddaughter Beliefs That Will Affect Care: None Hx Legal Problems: No Hx Traumatic Life Events: No Patient History Medical History Anxiety Hyperparathyroidism Multinodular goiter Primary hyperparathyroidism Suicidal ideation Thyroid nodule Vitamin D deficiency Family History Mother Thyroid disease Social History Smoking Status: Never smoker Hx Alcohol Use: No Preferred Language: Singaporean Communication Ability: Effective Provider Relations Advocate Required: No Beliefs That Will Affect Care: None marital status: Feels Safe at Home: Yes Assistive Devices: Glasses Review of Systems Review of Systems: Constitutional: reports mild headache at back of head/neck HEENT: reports gradual visual changes (reported during last admission) Cardiovascular: reports rapid heart rate with anxiety Respiratory: denied Gastrointestinal: reports constipation Neurological: reports dizziness, difficulty with memory, speech (stutter, slowed speech), and concentration. Tremor of hands bilaterally Psychiatric: denies symptoms other than stated above Total of at least 10 systems reviewed, pertinent positives as above and in HPI. Physical Exam Psychiatric: Orientation: alert, oriented x 3 (aside from believing today is Friday (acutally )) and cooperative (though very anxious) Apperance: appropriately dressed, + disheveled (mildly so, hair somewhat unkempt) and appeared stated age Thin, somewhat frail appearing female - alternating frequently between sitting, standing/staggering, or laying in bed. She appears to be in moderate anxious distress. Pt is appropriately and casually dressed, wearing a zip-up sweater and jeans. Rodarte hair is short and appears mildly unkempt. It is reported patient has not showered in several days, but not malodorous. Eye Contact: good eye contact (intense staring) Motor Behavior: + psychomotor retardation (slowed movement, but w/ anxious fidgeting of hands/frequent position change) and + tremor (fine tremor observed in hands bilterally ) Speech: + abnormal rate/rhythm/volume of speech Speech is reported by patient to be slowed, though not significantly different when compared to 05/2020 admission. Pt does have a significant stutter at times, though improves when patient appears less anxious. Soft, worried tone. Affect: + anxious affect (severe) Mood: + depressed mood and + anxious mood Thought Process: + perseveration (rumination) Thought Content: + preoccupation (with level of anxiety, various somatic complaints), reality based without delusions, + hopelessness and + worthlessness Suicidal Thoughts: denies suicidal intent; + reports suicidal thoughts able to contract for safety here on the unit Homicidal Thoughts: denies homicidal thoughts Hallucinations: no auditory hallucinations and no visual hallucinations Cognition: attention grossly intact and language grossly intact Estimated Intelligence: consistent with education level Insight: + limited insight Judgement: + limited judgement Vital Signs (Past 24 Hours): Last Vital Signs Temp 36.7 C 09/13/20 21:45 Pulse 76 09/13/20 18:16 Resp 16 09/13/20 18:16 BP 110/71 09/13/20 18:16 Pulse Ox 98 09/13/20 14:09 Exam Statement: A physical exam was performed in the ER prior to admission to the unit by Dr. Scott Doran MD. I accept that physical as correct/medical clearance for the inpatient physical exam. Results & Data ([facility]) Laboratory Results Laboratory Results - last 24 hr 09/13/20 09/13/20 09/13/20 12:16 12:16 12:16 WBC 5.35 RBC 4.65 Hgb 13.2 Hct 39.3 MCV 84.5 MCH 28.4 MCHC 33.6 RDW Std Deviation 44.5 RDW Coeff of Sammi 14.4 Plt Count 265 MPV 10.0 Immature Gran % (Auto) 0.0 Neut % (Auto) 66.1 Lymph % (Auto) 25.8 [place] % (Auto) 7.7 Eos % (Auto) 0.2 Baso % (Auto) 0.2 Neut # (Auto) 3.54 Lymph # (Auto) 1.38 [place] # (Auto) 0.41 Eos # (Auto) 0.01 Baso # (Auto) 0.01 Immature Gran # (Auto) 0.00 Sodium 139 Potassium 4.1 Chloride 107 Carbon Dioxide 26 Anion Gap 6.0 BUN 16 Creatinine 0.92 Est Cr Clr Drug Dosing 49.1 Est GFR ( Amer) 74.7 Est GFR (Non-Af Amer) 64.4 BUN/Creatinine Ratio 17.8 Glucose 83 Calcium 9.6 Magnesium 2.4 Total Bilirubin 0.7 AST 9 L ALT 20 Alkaline Phosphatase 67 Total Protein 7.9 Albumin 4.1 Globulin 3.8 Albumin/Globulin Ratio 1.1 TSH 1.080 Urine Color Urine Appearance Urine pH Ur Specific [place] Urine Protein Urine Glucose (UA) Urine Ketones Urine Blood Urine Nitrite Urine Bilirubin Urine Urobilinogen Ur Leukocyte Esterase Urine WBC (Auto) Urine RBC (Auto) U Hyaline Cast (Auto) U Epithel Cells (Auto) Urine Bacteria (Auto) Salicylates < 1.7 L Urine Opiates Screen Ur Methadone, Qual Acetaminophen < 2 L Urine Barbiturates Ur Phencyclidine (PCP) U Amphetamin/Meth Scrn MDMA (Ecstasy) Screen U Benzodiazepines Scrn Ur Cocaine Metabolite U Marijuana (THC) Screen Ethyl Alcohol mg/dL SARS-CoV-2 Ag (Rapid) 09/13/20 09/13/20 09/13/20 12:16 12:38 12:38 WBC RBC Hgb Hct MCV MCH MCHC RDW Std Deviation RDW Coeff of Sammi Plt Count MPV Immature Gran % (Auto) Neut % (Auto) Lymph % (Auto) [place] % (Auto) Eos % (Auto) Baso % (Auto) Neut # (Auto) Lymph # (Auto) [place] # (Auto) Eos # (Auto) Baso # (Auto) Immature Gran # (Auto) Sodium Potassium Chloride Carbon Dioxide Anion Gap BUN Creatinine Est Cr Clr Drug Dosing Est GFR ( Amer) Est GFR (Non-Af Amer) BUN/Creatinine Ratio Glucose Calcium Magnesium Total Bilirubin AST ALT Alkaline Phosphatase Total Protein Albumin Globulin Albumin/Globulin Ratio TSH Urine Color Yellow Urine Appearance Clear Urine pH 5.0 Ur Specific [place] 1.027 Urine Protein Negative Urine Glucose (UA) Negative Urine Ketones Negative Urine Blood 1+ H Urine Nitrite Negative Urine Bilirubin Negative Urine Urobilinogen Negative Ur Leukocyte Esterase Negative Urine WBC (Auto) 1-5 Urine RBC (Auto) 0-4 U Hyaline Cast (Auto) 1-5 U Epithel Cells (Auto) 10-20 H Urine Bacteria (Auto) Negative Salicylates Urine Opiates Screen Neg Ur Methadone, Qual Neg Acetaminophen Urine Barbiturates Neg Ur Phencyclidine (PCP) Neg U Amphetamin/Meth Scrn Neg MDMA (Ecstasy) Screen Neg U Benzodiazepines Scrn Neg Ur Cocaine Metabolite Neg U Marijuana (THC) Screen Neg Ethyl Alcohol mg/dL < 3.0 SARS-CoV-2 Ag (Rapid) 09/13/20 14:46 WBC RBC Hgb Hct MCV MCH MCHC RDW Std Deviation RDW Coeff of Sammi Plt Count MPV Immature Gran % (Auto) Neut % (Auto) Lymph % (Auto) [place] % (Auto) Eos % (Auto) Baso % (Auto) Neut # (Auto) Lymph # (Auto) [place] # (Auto) Eos # (Auto) Baso # (Auto) Immature Gran # (Auto) Sodium Potassium Chloride Carbon Dioxide Anion Gap BUN Creatinine Est Cr Clr Drug Dosing Est GFR ( Amer) Est GFR (Non-Af Amer) BUN/Creatinine Ratio Glucose Calcium Magnesium Total Bilirubin AST ALT Alkaline Phosphatase Total Protein Albumin Globulin Albumin/Globulin Ratio TSH Urine Color Urine Appearance Urine pH Ur Specific [place] Urine Protein Urine Glucose (UA) Urine Ketones Urine Blood Urine Nitrite Urine Bilirubin Urine Urobilinogen Ur Leukocyte Esterase Urine WBC (Auto) Urine RBC (Auto) U Hyaline Cast (Auto) U Epithel Cells (Auto) Urine Bacteria (Auto) Salicylates Urine Opiates Screen Ur Methadone, Qual Acetaminophen Urine Barbiturates Ur Phencyclidine (PCP) U Amphetamin/Meth Scrn MDMA (Ecstasy) Screen U Benzodiazepines Scrn Ur Cocaine Metabolite U Marijuana (THC) Screen Ethyl Alcohol mg/dL SARS-CoV-2 Ag (Rapid) Negative Current Inpatient Medications Current Inpatient Medications: Current Inpatient Medications Acetaminophen (Acetaminophen 325 Mg Tab) 650 mg PO Q4H PRN PRN Reason: Headache or Minor Fever Stop: 10/13/20 17:21 Al Hydrox/Mg Hydrox/Simethicone (Aluminum/Magnesium Susp 30 Ml Udc) 30 ml PO Q4H PRN PRN Reason: GI Upset Stop: 10/13/20 17:21 Bismuth Subsalicylate (Bismuth Subsalicylate Liqd 236 Ml) 15 ml PO PRN PRN PRN Reason: Loose Stool Stop: 10/13/20 17:21 Hydroxyzine HCl (Hydroxyzine Hcl 25 Mg Tab) 50 mg PO HSZ PRN PRN Reason: Insomnia Stop: 10/13/20 17:21 Last Admin: 09/13/20 22:05 Dose: 50 mg Documented by: Hydroxyzine HCl (Hydroxyzine Hcl 25 Mg Tab) 25 mg PO Q4H PRN PRN Reason: Anxiety Stop: 10/13/20 17:21 Magnesium Hydroxide (Magnesium Hydroxide Susp 30 Ml Udc) 30 ml PO DAILY PRN PRN Reason: Constipation Stop: 10/13/20 17:21 Quetiapine Fumarate (Quetiapine Fumarate 25 Mg Tablet) 25 mg PO Q4H PRN PRN Reason: anxiety Stop: 10/13/20 17:29 Sodium Chloride (Sodium Chloride 0.65% Na Soln 45 Ml ([place])) 1 - 2 sprays NA PRN PRN PRN Reason: Nasal Dryness/Congestion Stop: 10/13/20 17:21
[2020-09-14] MEDS ORDERED: OLANZAPINE 2.5 MG TAB PO PRN (13:21)
[2020-09-14] MEDS: OLANZAPINE 2.5 MG TAB PO SCH ×2 (14:05→22:17)
[2020-09-15] MEDS: OLANZAPINE 2.5 MG TAB PO SCH (08:41)
[2020-09-15] MEDS ORDERED: PROPRANOLOL HCL 10 MG TAB PO STA (09:37)
--- NOTE | 2020-09-15 09:43 | Psychiatric Progress Note ---
Date of Service September 15, 2020 Impression / Recommendations Impression Initial H&P Impression: 65-year-old female admitted voluntarily for inpatient psychiatric treatment on 09/13/20 after presenting to the ED with significant anxiety, inability to adequately care for self, and suicidal ideation with thoughts to use a knife to end her life. Pt has been admitted to our unit on two previous occasions with very similar presentations - 03/2020 and 05/2020. It was initially felt that the patient's anxiety may have been related to her hyperparathyroidism; however, patient had had multiple parathyroid nodules removed and hormone levels normalized prior to her 05/2020 admission and anxiety remained as significant, if not more severe. Pt admits that she had been non- compliant with medications since her last admission - stopping both quetiapine and gabapentin due to feeling the medications made her anxiety worse. Pt was seen by neurology during her 05/2020 admission, and we are requesting their assistance again as patient's concerns are ongoing. Appreciate recommendations. Will start patient on low-dose olanzapine to target significant anxiety and assist with sleep. Will encourage participation in group and recreational programming. When appropriate, will schedule a family meeting with the patient's and/or daughter. Pt will be encouraged to complete a written safety plan prior to discharge. Inpatient psychiatric admission is medically necessary at this time due to patient's significant anxiety and inability to contract for safety in the setting of suicidal thoughts. Pt is at acute risk of suicide if discharged prematurely. (1) Suicidal ideation: 09/14 - Admitted to a locked inpatient behavioral health unit, on q15 minute safety checks. Pt denying SI with intent in the hospitals setting, but is not able to contract for safety outside of the hospital setting. - Encourage medication initiation/adjustments as indicated - Encourage participation in group and recreational therapies - Gather collateral information from outpatient providers - Suggest family meeting to involve outpatient supports in safety planning - Arrange appropriate aftercare 09/15 - Continues to endorse intermittent intrusive suicidal thinking. Able to contract for safety on the unit, but not in the outpatient setting (2) Anxiety: 09/14 - Will initiate low-dose olanzapine 2.5mg BID to target significant anxiety. Offer encouragement with medications, especially potential need for titration which is often overwhelming to the patient. Will also have a prn dose of 2.5mg available for the patient daily if needed. - Continue to offer reassurance and assist with development of healthy and effective coping strategies. - MNPR due to poor sleep, only getting 1-3 hours a night with frequent disruptions. - When appropriate, will schedule a meeting with the patient's to discuss discharge and safety planning 09/15 - Holding olanzapine presently, as patient refused AM dose and feels it is making her more tremulous (but also slept very well last evening, and did not report this issues last night). Offered a one-time dose of propranolol 5mg this morning to target anxiety, consider scheduling BID if tolerated/effective. - Continue to offer reassurance and assistance with re-framing thoughts. Pt continues to be very somatically preoccupied, which does not mesh well with trying new medications. She was encouraged to focus on what the benefits are able to help with, rather than perseverating on the potential side effects. Used gentle reality orientation, as many of the symptoms patient identifies as "side effects" are the same symptoms she was reporting when not taking any medications at all. In the moment, patient verbalized understanding and desire for assistance with reframing these thoughts. 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 scheduled low-dose benzodiazepines (as only identified medication that patient feels helps). - MNPR discontinued today in the setting of improved sleep (3) Confusion: 09/14 - MoCA completed today - patient scored a 15/30. Could not locate any previous tests with which to compare score. Highest level of education: high school graduate. - Deficits observed in the following areas: - Visuospatial/Executive (08/04): lost points for trails test and cube drawing - unrelated to patient's tremor affecting her drawing ability; contour and numbers of clock drawing were small but appropriate; one point lost for hands due to orientation of the arrows being incorrect. - Naming (08/30): though began by writing the names rather than stating them - Attention (07/05): lost one point number repetition as unable to state the series backwards. Patient missed identifying 6 "A's". Unable/unwilling to attempt serial 7 subtraction. - Language (07/02): lost one point for sentence repetition, no points awarded for fluency as patient was unable to think of a single word starting with "F" - Abstraction (0/): no points awarded as patient was unable to offer any similarities - Delayed recall (09/01): patient able to recall 3/5 words without category clues. - Orientation (11/02): patient oriented with the only exception of day of the week. 09/15 - Pt continues to endorse "feeling like I just can comprehend things I used to be able to." - Continue to offer reassurance and reorientation (4) Multiple somatic complaints: 09/14 - Pt continues to report various non-specific somatic complaints - dizziness, "burning" sensation primarily in lower extremities, restlessness, heat/cold intolerance, etc. While these may be related to anxiety, cannot entirely rule out other etiologies for these concerns. Given the lengthy duration and limited benefit from psychotropic medication recommendations, it does seem to warrant further exploration. - Will request neurology consultation to re-evaluate patient as she continues to report various symptoms where neurological etiology cannot be ruled out. This includes ongoing restless legs, burning sensation/paresthesias in feet/legs and occasional hands/arms. Pt was started on gabapentin, but has since discontinued this medication due to believing it made her symptoms worse. Pt did have a neurology consultation during her 05/2020 admission and outpatient follow-up with EMG study was suggested. Additionally, B12, methylmalonic acid, folic acid, SPEP, thiamine, and B6 were obtained - all WNL. Pt states she was too anxious to attend this appointment, but new referral has been sent by PCP. - Pt may also be demonstrating some parkinsonian symptoms: known tremor of right hand, now also affecting left hand; slowed movements/speech; ?stutter; stooped posture; staggering/shuffling gait; and masked facies. - Pt does believe that father has a diagnosis of dementia - but was uncertain of any specific details. - Appreciate neurology assessment and recommendations. 09/15 - Pt reportedly slept well with 2.5mg of olanzapine last evening (6 hrs, compared to self-report of 1-3 at home). This morning again reporting anxiety, initially refused olanzapine due to feeling she is more tremulous. With the above parkinsonian symptoms concerns this could be the case; however, patient's tremor has also been known to worsen with anxiety as well. Will hold olanzapine until neurology can evaluate today. - Offer 5mg of propranolol for anxiety - may benefit tremor. - Neurology consultation today, appreciate assessment and recommendations. Protective Factors Assessment Employed: No Interval History Identifying Information WILLA BILL is a 65-year-old F who currently lives in [place] with her , has a history of anxiety and depression, and was admitted on 09/13/20 17:22 on a 201 voluntary commitment for worsening anxiety, SI, and inability to care for self. Chief Complaint "I slept really well, but woke up with tremors and a stutter. I think the Zyprexa is making me worse." Review of Systems Notes Constitutional: reports improved sleep last evening Cardiovascular: denied Respiratory: denied Gastrointestinal: denied Neurological: reports ongoing variation in severity of tremor as well as stutter Psychiatric: denies symptoms other than stated above Total of at least 10 systems reviewed, pertinent positives as above and in HPI. Sleep Information Total Hours of Sleep: 6 Sleep Comments: pt on q-15 minute checks Meal Information Percent Meal Consumed - Breakfast: 100 Percent Meal Consumed - Lunch: 100 Percent Meal Consumed - Dinner: 100 Subjective Subjective Patient was seen & assessed and interval progress reviewed with treatment team. Staff report the patient continues to be highly anxious. She did receive low- dose olanzapine before bed last evening and slept for 6 hours. She reported feeling more tremulous and anxious this morning and feel the olanzapine is responsible, and therefore refused her scheduled morning dose. Neurology to meet with patient today. Pt was seen today and reports continued anxiety, willing to take a medication despite her reports of frequent side effects or feeling medications don't mix well "with my chemistry." Pt reported ongoing hesitation with olanzapine. Based on conversation with supervising psychiatrist as well as thoughts from patient's outpatient psychiatric prescriber, patient was offered a low dose of propranolol. She agreed to this medication, but had numerous questions - all of which were answered. Much of the session was spent reframing the patient's thoughts with regard to medications. For example - she feels olanzapine is not a good medication because she is feeling anxious this morning, but does admit that she was less anxious after taking it last evening and slept well. Pt was encouraged to focus on the things the medication is helping with and finding ways to distract her mind from excessive worry about potential side effects. Pt continues to be worried that the propranolol may also cause her to feel dizzy or more anxious. We discussed that many of the symptoms she reported were present prior to admission, when she was still off of medications. Pt was able to admit that her current symptoms are not much different from what she was experiencing prior to admission. Pt continues to endorse intermittent SI, and states she does not feel she would be safe for discharge. Pt denied other needs at this time. 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 Often walking laps or pacing. Speech: normal rate/rhythm/volume of speech (no obvious stuttering during our encounter, but waxes and wanes w/ anxiety) Affect: + anxious affect (severely anxious, fidgeting, cannot sit or perinatal director one place for long) Mood: + depressed mood and + anxious mood Thought Process: + perseveration Thought Content: + preoccupation, + cognitive distortions and + hopelessness Suicidal Thoughts: + reports suicidal thoughts (ongoing intermittent SI) unable to contract for safety outside of inpatient hospital setting Homicidal Thoughts: denies homicidal thoughts Hallucinations: no auditory hallucinations and no visual hallucinations Cognition: attention grossly intact and language grossly intact Estimated Intelligence: consistent with education level Insight: + limited insight Judgement: + fair judgement Vital Signs (Past 24 Hours) Last Vital Signs Temp 36.3 C L 09/15/20 06:49 Pulse 74 09/15/20 06:50 Resp 16 09/15/20 06:49 BP 115/74 09/15/20 06:50 Pulse Ox 98 09/13/20 14:09 Results & Data ([facility]) Current Inpatient Medications Current Inpatient Medications: Current Inpatient Medications Acetaminophen (Acetaminophen 325 Mg Tab) 650 mg PO Q4H PRN PRN Reason: Headache or Minor Fever Stop: 10/13/20 17:21 Al Hydrox/Mg Hydrox/Simethicone (Aluminum/Magnesium Susp 30 Ml Udc) 30 ml PO Q4H PRN PRN Reason: GI Upset Stop: 10/13/20 17:21 Bismuth Subsalicylate (Bismuth Subsalicylate Liqd 236 Ml) 15 ml PO PRN PRN PRN Reason: Loose Stool Stop: 10/13/20 17:21 Hydroxyzine HCl (Hydroxyzine Hcl 25 Mg Tab) 50 mg PO HSZ PRN PRN Reason: Insomnia Stop: 10/13/20 17:21 Last Admin: 09/13/20 22:05 Dose: 50 mg Documented by: Hydroxyzine HCl (Hydroxyzine Hcl 25 Mg Tab) 25 mg PO Q4H PRN PRN Reason: Anxiety Stop: 10/13/20 17:21 Magnesium Hydroxide (Magnesium Hydroxide Susp 30 Ml Udc) 30 ml PO DAILY PRN PRN Reason: Constipation Stop: 10/13/20 17:21 Last Admin: 09/15/20 09:07 Dose: 30 ml Documented by: Olanzapine (Olanzapine 2.5 Mg Tab) 2.5 mg PO BID JAMIE Stop: 10/14/20 13:19 Last Admin: 09/15/20 08:41 Dose: Not Given Documented by: Olanzapine (Olanzapine 2.5 Mg Tab) 2.5 mg PO DAILY PRN PRN Reason: anxiety Stop: 10/15/20 08:59 Propranolol HCl (Propranolol Hcl 10 Mg Tab) 5 mg PO NOW STA Stop: 09/15/20 09:38 Sodium Chloride (Sodium Chloride 0.65% Na Soln 45 Ml ([place])) 1 - 2 sprays NA PRN PRN PRN Reason: Nasal Dryness/Congestion Stop: 10/13/20 17:21 Mental Health & Subst Abuse Tx Psychiatrist Name of Psychiatrist: [facility] - [facility] Psychiatrist's Date of Appointment with Psychiatrist: 09/28/20 Time of Appointment with Psychiatrist: 1 pm Psychiatric Appointment Comment: Over the Phone Therapist Name of Therapist: Nadir Pinto [facility] - Katy Bliss Therapist's Date of Therapist Appointment: 09/20/20 Therapy Appointment Comment: [address], [address], [place] [address] Professor Of Legal Studies Name of Professor Of Legal Studies: None Post Discharge Appointments Primary Care Physician Name Of Family Doctor: Shasha Andrade Primary Care Provider [facility]ointment Comment[facility] [address] [facility] Name of Neurologist: Shasha Pinto - Nataliya Pinto Neurologist's Date of Appointment with Neurologist: 11/02/20 Neurology Appointment Comment: Referral made by PCP on 09/12/20 Contact Information Discharge Discharge Address: [address], [place] [address]
[2020-09-15] MEDS: CHOLECALCIFEROL 1,000 UNITS 25 MCG TAB PO SCH (10:42)
[2020-09-15] MEDS ORDERED: PROPRANOLOL HCL 10 MG TAB PO PRN (13:51)
--- NOTE | 2020-09-15 14:06 | Neurology Consultation ---
Date of Consultation September 15, 2020 Assessment & Plan (1) Tremor of both hands: 1. appear to be a worsening essential tremor 2. no cogwheeling, shuffling gait, mask facies, or decrease in blink frequency 3. treatment will be dependant on psychiatric medications she will be placed on 4. MRI brain with and without could be done if psychiatry thinks it is warranted 5. if there is a question of parkinson in the future a URIEL scan can be done. follow up is scheduled with neurology in October will need to reschedule the EMG prior to this appointment Present on Admission?: Yes (2) Paresthesia of both feet: 1. will reschedule the follow up EMG as outpatient 2. vitamin B vitamin levels are good, folic acid is normal. if not already done- methylmalonic acid, protein immunofixation, sed rate, LEIF, protein electrophoresis, ammonia, SPEP, hgbA1C 3. gabapentin was tried in the past which she states didn't help may not be a good medication due to psychiatric issues Present on Admission?: Yes Supervising Physician Co-Signing Physician Notes Patient was seen and examined this afternoon in room 330. I discussed with Nataliya Pinto also and agree with her note / recommendations. I believe Ms. Siddiqui has an essential tremor with known anxiety. I do not believe she has parkinson's disease. This is supported by her bilateral upper extremity postural / kinetic tremor (R>L). Otherwise examine is devoid of signs to support parkison's disease. Anxiety is certainly contributing to her poor memory and concentration. Therefore it would not surprise me that she performed poorly on the MOCA. At this point I would not recommend starting a medication for essential tremor (ET) until her anxiety is better controlled. She did not tolerate Gabapentin in the past. We may consider Primidone in the future for tremor if needed. I ask that she follow up with us as outpatient once discharged. Please call me with any additional concerns. Otherwise patient agreed to plan of care and had no additional questions. History of Present Illness Reason for Consultation: paresthesia/parkinsonian symptoms? Requesting Physician: Mariana Rossi MD Attending Physician: Mariana Rossi MD History of Present Illness Areli is a 65 year old female with an know essential tremor which dates back to [address] Hendricks in neurology. She was seen in the hospital previously by Charles Abreu DO 06/24/2020 for evaluation of parathesias. An EMG on 12/08/2019 of the right UE/LE was normal with no evidence of polyneuropathy or cervical or lumbosacral radiculopathy. When she was hospitalized in May she was suicidal as well as this hospitalization. At that time she was having a severe panic attack and had stuttering speech. She was complaining of paresthesias of the left foot > right foot and was having issues with dorsiflexing the foot. The consult today is for possible parkinson's symptoms. She is walking in the yan and friendly with conversion. denies CP, SOB, abdominal pain, falls, +paresthesia bilateral toes, + feeling of anxiety. Allergies Allergy/AdvReac Type Severity Reaction Status Date / Time codeine Allergy Unknown Unknown Verified 09/13/20 13:25 morphine Allergy Unknown Verified 09/13/20 13:25 Anxiety Medications AdvReac see comment Uncoded 09/13/20 13:25 Home Medications Medication Instructions Recorded Confirmed Type No Known Home Medications 09/13/20 09/13/20 History Patient History Medical History Anxiety Hyperparathyroidism Multinodular goiter Primary hyperparathyroidism Suicidal ideation Thyroid nodule Vitamin D deficiency Family History Mother Thyroid disease Social History Smoking Status: Never smoker Hx Alcohol Use: No Preferred Language: Amharic Communication Ability: Effective Business Process Lead Required: No Beliefs That Will Affect Care: None marital status: Feels Safe at Home: Yes Assistive Devices: Glasses Review of Systems Review of Systems: All systems reviewed & are unremarkable except as noted in HPI & below Physical Exam Physical Exam: Physical Exam: Constitutional: appearance thin frail Ears, Nose, Mouth and Throat: mucous membranes moist, no injection and skin normal, eyes normal eye blink frequency Cardiovascular: normal S-1 and S-2 and regular rate and rhythm Respiratory: clear to auscultation (CTA) and no rales, rhonchi or wheeze Musculoskeletal: no peripheral edema and good distal pulses Skin: no stigmata of neurocutaneous disease noted and normal and intact Eyes: extraocular muscles intact (EOMI) and pupils equal, round and reactive to light (PERRL) NEUROLOGIC EXAMINATION: Mental status: Alert and interactive Oriented to person Speech fluent with no evidence of aphasia Cranial Nerves smile eye brow raise symmetric Reflexes: Deep tendon reflexes were symmetrical and graded 2/5. down going toes, decreased ankle jerk Sensory: light cool touch, GT proprioception intact Coordination: finger to nose no bi pass, reaching tremor R>L, no cog wheeling Gait/Stance: Posture normal. Gait normal: with steady with steps, base, turning, heel and toe walking and tandem gait, no pill rolling, walks on toes and heels with no balance issues, arm swing bilaterally equal Motor: Negative for pronator drift of out stretched arms with eyes closed, bilateral tremor Strength: biceps triceps hand swatch cutter 5/5 bilaterally, hip flex 5/5 bilaterally Results & Data ([facility]) Vital Signs (Past 12 Hours) Vital Signs Temp Pulse Resp BP 09/15/20 06:50 74 115/74 09/15/20 06:49 36.3 C L 68 16 120/79 Laboratory Results no new labs Diagnostic Findings CT head-No acute intracranial abnormality.
[2020-09-15] MEDS: PROPRANOLOL HCL 10 MG TAB PO SCH (21:57)
[2020-09-16] MEDS: PROPRANOLOL HCL 10 MG TAB PO SCH ×2 (08:40→14:40)
[2020-09-16] MEDS ORDERED: SENNA 8.6 MG TAB PO PRN (10:44)
--- NOTE | 2020-09-16 12:29 | Psychiatric Progress Note ---
Date of Service September 16, 2020 Impression / Recommendations Impression Initial H&P Impression: 65-year-old female admitted voluntarily for inpatient psychiatric treatment on 09/13/20 after presenting to the ED with significant anxiety, inability to adequately care for self, and suicidal ideation with thoughts to use a knife to end her life. Pt has been admitted to our unit on two previous occasions with very similar presentations - 03/2020 and 05/2020. It was initially felt that the patient's anxiety may have been related to her hyperparathyroidism; however, patient had had multiple parathyroid nodules removed and hormone levels normalized prior to her 05/2020 admission and anxiety remained as significant, if not more severe. Pt admits that she had been non- compliant with medications since her last admission - stopping both quetiapine and gabapentin due to feeling the medications made her anxiety worse. Pt was seen by neurology during her 05/2020 admission, and we are requesting their assistance again as patient's concerns are ongoing. Appreciate recommendations. Will start patient on low-dose olanzapine to target significant anxiety and assist with sleep. Will encourage participation in group and recreational programming. When appropriate, will schedule a family meeting with the patient's and/or daughter. Pt will be encouraged to complete a written safety plan prior to discharge. Inpatient psychiatric admission is medically necessary at this time due to patient's significant anxiety and inability to contract for safety in the setting of suicidal thoughts. Pt is at acute risk of suicide if discharged prematurely. 09/16--reviewed--ongoing SI (intermittent) and constant anxiety--tolerating propranolol trial and nervous but agreeable to increase slowly. (1) Suicidal ideation: remains on q15 checks. (2) Anxiety: further propranolol trial to 10 mg BID. Zyprexa is prn and doesn't appear to contribute EPS, restless remains severe anxiety. (3) Tremor of both hands: 09/16--reviewed neuro input: 1. appear to be a worsening essential tremor 2. no cogwheeling, shuffling gait, mask facies, or decrease in blink frequency 3. treatment will be dependant on psychiatric medications she will be placed on 4. MRI brain with and without could be done if psychiatry thinks it is warranted 5. if there is a question of parkinson in the future a URIEL scan can be done. follow up is scheduled with neurology in May will need to reschedule the EMG prior to this appointment (4) Paresthesia of both feet: 3/20--neuro input appreciated. 1. will reschedule the follow up EMG as outpatient 2. vitamin B vitamin levels are good, folic acid is normal. if not already done- methylmalonic acid, protein immunofixation, sed rate, LEIF, protein electrophoresis, ammonia, SPEP, hgbA1C 3. gabapentin was tried in the past which she states didn't help may not be a good medication due to psychiatric issues Protective Factors Assessment Employed: No Interval History Identifying Information WILLA BILL is a 65-year-old F who currently lives in [place] with her , has a history of anxiety and depression, and was admitted on 09/13/20 17:22 on a 201 voluntary commitment for worsening anxiety, SI, and inability to care for self. 09/16--reviewed. Chief Complaint "I'm just a mess in the morning". Review of Systems Sleep Information Total Hours of Sleep: 7.5 Sleep Comments: pt on q-15 minute checks Meal Information Percent Meal Consumed - Breakfast: 100 Percent Meal Consumed - Lunch: 100 Percent Meal Consumed - Dinner: 90 Subjective Subjective Patient was seen & assessed and interval progress reviewed with nursing and social work. Still more anxious at the beginning of the day and end when not actively engaged in programming. Unclear what thoughts she is having other than doesn't want to live with this level of anxiety and doesn't know what to do about it and also worries about her health in general, tremor bothers her but "I think it's a little better today". She was anxious but talked without stutter until she was crying about her daughters birthday and I asked what they normally did and she got stuck on word cake. She feels she is too emotional to speak on the phone. Physical Exam Psychiatric Orientation: alert, oriented x 3 and cooperative Apperance: appropriately dressed and appeared stated age Eye Contact: + fair eye contact Motor Behavior: + tremor (fine tremor observed in hands bilterally ) Speech: normal rate/rhythm/volume of speech Affect: + anxious affect (severely anxious, fidgeting, cannot sit or learning support specialist one place for long) Mood: + depressed mood and + anxious mood Thought Process: + perseveration Thought Content: + preoccupation and reality based without delusions Suicidal Thoughts: denies suicidal intent; + reports suicidal thoughts (ongoing intermittent SI) Homicidal Thoughts: denies homicidal thoughts Hallucinations: no auditory hallucinations and no visual hallucinations Cognition: language grossly intact Estimated Intelligence: consistent with education level Insight: + limited insight Judgement: + limited judgement Vital Signs (Past 24 Hours) Last Vital Signs Temp 36.2 C L 09/16/20 06:39 Pulse 75 09/16/20 06:39 Resp 18 09/16/20 06:39 BP 137/79 09/16/20 06:39 Pulse Ox 98 09/15/20 21:56 Results & Data ([facility]) Current Inpatient Medications Current Inpatient Medications: Current Inpatient Medications Acetaminophen (Acetaminophen 325 Mg Tab) 650 mg PO Q4H PRN PRN Reason: Headache or Minor Fever Stop: 10/13/20 17:21 Al Hydrox/Mg Hydrox/Simethicone (Aluminum/Magnesium Susp 30 Ml Udc) 30 ml PO Q4H PRN PRN Reason: GI Upset Stop: 10/13/20 17:21 Bismuth Subsalicylate (Bismuth Subsalicylate Liqd 236 Ml) 15 ml PO PRN PRN PRN Reason: Loose Stool Stop: 10/13/20 17:21 Hydroxyzine HCl (Hydroxyzine Hcl 25 Mg Tab) 50 mg PO HSZ PRN PRN Reason: Insomnia Stop: 10/13/20 17:21 Last Admin: 09/13/20 22:05 Dose: 50 mg Documented by: Hydroxyzine HCl (Hydroxyzine Hcl 25 Mg Tab) 25 mg PO Q4H PRN PRN Reason: Anxiety Stop: 10/13/20 17:21 Magnesium Hydroxide (Magnesium Hydroxide Susp 30 Ml Udc) 30 ml PO DAILY PRN PRN Reason: Constipation Stop: 10/13/20 17:21 Last Admin: 09/15/20 09:07 Dose: 30 ml Documented by: Olanzapine (Olanzapine 2.5 Mg Tab) 2.5 mg PO BID JAMIE Stop: 10/14/20 13:19 Last Admin: 09/15/20 08:41 Dose: Not Given Documented by: Olanzapine (Olanzapine 2.5 Mg Tab) 2.5 mg PO DAILY PRN PRN Reason: anxiety Stop: 10/15/20 08:59 Propranolol HCl (Propranolol Hcl 10 Mg Tab) 5 mg PO DAILY PRN PRN Reason: Anxiety Stop: 10/15/20 13:50 Propranolol HCl (Propranolol Hcl 10 Mg Tab) 10 mg PO [id number] JAMIE Stop: 10/16/20 13:59 Sennosides (Senna 8.6 Mg Tab) 8.6 mg PO QAM PRN PRN Reason: Constipation Stop: 10/16/20 10:44 Sodium Chloride (Sodium Chloride 0.65% Na Soln 45 Ml ([place])) 1 - 2 sprays NA PRN PRN PRN Reason: Nasal Dryness/Congestion Stop: 10/13/20 17:21 Vitamin D (Cholecalciferol 1,000 Units 25 Mcg Tab) 2,000 units PO [id number]@0900 JAMIE Stop: 10/15/20 10:59 Last Admin: 09/15/20 10:42 Dose: 2,000 units Documented by: Mental Health & Subst Abuse Tx Psychiatrist Name of Psychiatrist: [facility] - JAN Pardo Psychiatrist's Date of Appointment with Psychiatrist: 09/28/20 Time of Appointment with Psychiatrist: 1 pm Psychiatric Appointment Comment: Over the Phone Therapist Name of Therapist: [facility]ir [facility] - Katy Bliss Therapist's Date of Therapist Appointment: 09/20/20 Therapy Appointment Comment: [address] [facility], [address], [place] [address] Film Casting Operator Name of Film Casting Operator: None Post Discharge Appointments Primary Care Physician Name Of Family Doctor: Shasha Andrade Primary Care Provider Appointment Comment: [address] [facility] Neurologist Name of Neurologist: Shasha Pinto - Dr. Abreu and Nataliya Pinto Neurologist's Date of Appointment with Neurologist: 11/02/20 Neurology Appointment Comment: Referral made by PCP on 09/12/20 Contact Information Discharge Discharge Address: [address] [place] [id number]
[2020-09-17] MEDS: PROPRANOLOL HCL 10 MG TAB PO SCH ×2 (06:31→14:03)
--- NOTE | 2020-09-17 11:00 | Psychiatric Progress Note ---
Date of Service September 17, 2020 Impression / Recommendations Impression Initial H&P Impression: 65-year-old female admitted voluntarily for inpatient psychiatric treatment on 09/13/20 after presenting to the ED with significant anxiety, inability to adequately care for self, and suicidal ideation with thoughts to use a knife to end her life. Pt has been admitted to our unit on two previous occasions with very similar presentations - 03/2020 and 05/2020. It was initially felt that the patient's anxiety may have been related to her hyperparathyroidism; however, patient had had multiple parathyroid nodules removed and hormone levels normalized prior to her 05/2020 admission and anxiety remained as significant, if not more severe. Pt admits that she had been non- compliant with medications since her last admission - stopping both quetiapine and gabapentin due to feeling the medications made her anxiety worse. Pt was seen by neurology during her 05/2020 admission, and we are requesting their assistance again as patient's concerns are ongoing. Appreciate recommendations. Will start patient on low-dose olanzapine to target significant anxiety and assist with sleep. Will encourage participation in group and recreational programming. When appropriate, will schedule a family meeting with the patient's and/or daughter. Pt will be encouraged to complete a written safety plan prior to discharge. Inpatient psychiatric admission is medically necessary at this time due to patient's significant anxiety and inability to contract for safety in the setting of suicidal thoughts. Pt is at acute risk of suicide if discharged prematurely. 09/16--reviewed--ongoing SI (intermittent) and constant anxiety--tolerating propranolol trial and nervous but agreeable to increase slowly. 09/17--slight improvement (1) Suicidal ideation: remains on q15 checks. (2) Anxiety: 09/16--further propranolol trial to 10 mg BID. Zyprexa is prn and doesn't appear to contribute EPS, restless remains severe anxiety. 09/17--continue current med plan, monitor BP, may need TID dosing propranolol to tolerate. (3) Tremor of both hands: 09/16--reviewed neuro input: 1. appear to be a worsening essential tremor 2. no cogwheeling, shuffling gait, mask facies, or decrease in blink frequency 3. treatment will be dependant on psychiatric medications she will be placed on 4. MRI brain with and without could be done if psychiatry thinks it is warranted 5. if there is a question of parkinson in the future a URIEL scan can be done. follow up is scheduled with neurology in May will need to reschedule the EMG prior to this appointment 09/17--improved (4) Paresthesia of both feet: 09/16--neuro input appreciated. 1. will reschedule the follow up EMG as outpatient 2. vitamin B vitamin levels are good, folic acid is normal. if not already done- methylmalonic acid, protein immunofixation, sed rate, LEIF, protein electrophoresis, ammonia, SPEP, hgbA1C 3. gabapentin was tried in the past which she states didn't help may not be a good medication due to psychiatric issues Protective Factors Assessment Employed: No Interval History Identifying Information WILLA BILL is a 65-year-old F who currently lives in [place] with her , has a history of anxiety and depression, and was admitted on 09/13/20 17:22 on a 201 voluntary commitment for worsening anxiety, SI, and inability to care for self. 09/16--reviewed. Chief Complaint "I'm not sure I'm better, I worry about riding in the car, leaving the house, swallowing". Review of Systems Sleep Information Total Hours of Sleep: 7 Sleep Comments: pt on q-15 minute checks Meal Information Percent Meal Consumed - Breakfast: 100 Percent Meal Consumed - Lunch: 100 Percent Meal Consumed - Dinner: 95 Subjective Subjective Patient was seen & assessed and interval progress reviewed with nursing and social work. 2nd dose of propranolol held yesterday due to BP parameters. No worsening of baseline dizziness and patient is able to state that "that's just my anxiety". She states only time she notices tremor since starting propranolol was when she eats as "I'm convinced I'm going to choke". Normally she is not able to verbalize these insights to me. SW noted she was able to sit/stay in group for longer period of time. Physical Exam Psychiatric Orientation: alert, oriented x 3 and cooperative Apperance: appropriately dressed and appeared stated age Eye Contact: + fair eye contact Motor Behavior: no abnormal motor movements Speech: normal rate/rhythm/volume of speech Affect: + blunted affect Mood: + depressed mood and + anxious mood Thought Process: + perseveration Thought Content: + preoccupation and reality based without delusions Suicidal Thoughts: denies suicidal thoughts and denies suicidal intent Homicidal Thoughts: denies homicidal thoughts Hallucinations: no auditory hallucinations and no visual hallucinations Cognition: attention grossly intact and language grossly intact Estimated Intelligence: consistent with education level Insight: + limited insight Judgement: + limited judgement Vital Signs (Past 24 Hours) Last Vital Signs Temp 36.6 C 09/17/20 06:00 Pulse 76 09/17/20 06:25 Resp 17 09/17/20 06:00 BP 115/77 09/17/20 06:25 Pulse Ox 98 09/15/20 21:56 Results & Data ([facility] [[email or web address] Current Inpatient Medications Current Inpatient Medications: Current Inpatient Medications Acetaminophen (Acetaminophen 325 Mg Tab) 650 mg PO Q4H PRN PRN Reason: Headache or Minor Fever Stop: 10/13/20 17:21 Al Hydrox/Mg Hydrox/Simethicone (Aluminum/Magnesium Susp 30 Ml Udc) 30 ml PO Q4H PRN PRN Reason: GI Upset Stop: 10/13/20 17:21 Bismuth Subsalicylate (Bismuth Subsalicylate Liqd 236 Ml) 15 ml PO PRN PRN PRN Reason: Loose Stool Stop: 10/13/20 17:21 Hydroxyzine HCl (Hydroxyzine Hcl 25 Mg Tab) 50 mg PO HSZ PRN PRN Reason: Insomnia Stop: 10/13/20 17:21 Last Admin: 09/13/20 22:05 Dose: 50 mg Documented by: Hydroxyzine HCl (Hydroxyzine Hcl 25 Mg Tab) 25 mg PO Q4H PRN PRN Reason: Anxiety Stop: 10/13/20 17:21 Magnesium Hydroxide (Magnesium Hydroxide Susp 30 Ml Udc) 30 ml PO DAILY PRN PRN Reason: Constipation Stop: 10/13/20 17:21 Last Admin: 09/15/20 09:07 Dose: 30 ml Documented by: Olanzapine (Olanzapine 2.5 Mg Tab) 2.5 mg PO BID JAMIE Stop: 10/14/20 13:19 Last Admin: 09/15/20 08:41 Dose: Not Given Documented by: Olanzapine (Olanzapine 2.5 Mg Tab) 2.5 mg PO DAILY PRN PRN Reason: anxiety Stop: 10/15/20 08:59 Propranolol HCl (Propranolol Hcl 10 Mg Tab) 5 mg PO DAILY PRN PRN Reason: Anxiety Stop: 10/15/20 13:50 Propranolol HCl (Propranolol Hcl 10 Mg Tab) 10 mg PO [id number] [facility] Stop: 10/16/20 13:59 Last Admin: 09/17/20 06:31 Dose: 10 mg Documented by: Sennosides (Senna 8.6 Mg Tab) 8.6 mg PO QAM PRN PRN Reason: Constipation Stop: 10/16/20 10:44 Sodium Chloride (Sodium Chloride 0.65% Na Soln 45 Ml ([place])) 1 - 2 sprays NA PRN PRN PRN Reason: Nasal Dryness/Congestion Stop: 10/13/20 17:21 Vitamin D (Cholecalciferol 1,000 Units 25 Mcg Tab) 2,000 units PO [id number]@0900 [facility] Stop: 10/15/20 10:59 Last Admin: 09/15/20 10:42 Dose: 2,000 units Documented by: Mental Health & Subst Abuse Tx Psychiatrist Name of Psychiatrist: [facility] - JAN Pardo Psychiatrist's Date of Appointment with Psychiatrist: 09/28/20 Time of Appointment with Psychiatrist: 1 pm Psychiatric Appointment Comment: Over the Phone Therapist Name of Therapist: Nadir [facility] - Katy Bliss Therapist's Date of Therapist Appointment: 09/20/20 Therapy Appointment Comment: [address] [facility], [address], [place] [address] Screen Vent Binder Name of Screen Vent Binder: None Post Discharge Appointments Primary Care Physician Name Of Family Doctor: Shasha Andrade Primary Care Provider Appointment Comment: [address] [facility] Neurologist Name of Neurologist: Shasha Abreu and Natalyia Pinto Neurologist's Date of Appointment with Neurologist: 11/02/20 Neurology Appointment Comment: Referral made by PCP on 09/12/20 Contact Information Discharge Discharge Address: [address] [place] [address]
[2020-09-18] MEDS: PROPRANOLOL HCL 10 MG TAB PO SCH ×2 (06:34→14:14)
[2020-09-18] MEDS: CHOLECALCIFEROL 1,000 UNITS 25 MCG TAB PO SCH (08:16)
--- NOTE | 2020-09-18 14:27 | Psychiatric Progress Note ---
Date of Service September 18, 2020 Impression / Recommendations Impression Initial H&P Impression: 65-year-old female admitted voluntarily for inpatient psychiatric treatment on 09/13/20 after presenting to the ED with significant anxiety, inability to adequately care for self, and suicidal ideation with thoughts to use a knife to end her life. Pt has been admitted to our unit on two previous occasions with very similar presentations - 03/2020 and 05/2020. It was initially felt that the patient's anxiety may have been related to her hyperparathyroidism; however, patient had had multiple parathyroid nodules removed and hormone levels normalized prior to her 05/2020 admission and anxiety remained as significant, if not more severe. Pt admits that she had been non- compliant with medications since her last admission - stopping both quetiapine and gabapentin due to feeling the medications made her anxiety worse. Pt was seen by neurology during her 05/2020 admission, and we are requesting their assistance again as patient's concerns are ongoing. Appreciate recommendations. Will start patient on low-dose olanzapine to target significant anxiety and assist with sleep. Will encourage participation in group and recreational programming. When appropriate, will schedule a family meeting with the patient's and/or daughter. Pt will be encouraged to complete a written safety plan prior to discharge. Inpatient psychiatric admission is medically necessary at this time due to patient's significant anxiety and inability to contract for safety in the setting of suicidal thoughts. Pt is at acute risk of suicide if discharged prematurely. 09/18--slow improvement, worries about suicidal thoughts returning or not being able to manage them at home. (1) Suicidal ideation: remains on q15 checks. (2) Anxiety: 09/16--further propranolol trial to 10 mg BID. Zyprexa is prn and doesn't appear to contribute EPS, restless remains severe anxiety. 09/17--continue current med plan, monitor BP, may need TID dosing propranolol to tolerate. (3) Tremor of both hands: 09/16--reviewed neuro input: 1. appear to be a worsening essential tremor 2. no cogwheeling, shuffling gait, mask facies, or decrease in blink frequency 3. treatment will be dependant on psychiatric medications she will be placed on 4. MRI brain with and without could be done if psychiatry thinks it is warranted 5. if there is a question of parkinson in the future a URIEL scan can be done. follow up is scheduled with neurology in May will need to reschedule the EMG prior to this appointment 09/17--improved 09/18--patient prefers open MRI if needs repeat and any additional labs be performed as outpatient. (4) Paresthesia of both feet: 09/16--neuro input appreciated. 1. will reschedule the follow up EMG as outpatient 2. vitamin B vitamin levels are good, folic acid is normal. if not already done- methylmalonic acid, protein immunofixation, sed rate, LEIF, protein electrophoresis, ammonia, SPEP, hgbA1C 3. gabapentin was tried in the past which she states didn't help may not be a good medication due to psychiatric issues 09/18--improved. Protective Factors Assessment Employed: No Interval History Identifying Information WILLA BILL is a 65-year-old F who currently lives in [place] with her , has a history of anxiety and depression, and was admitted on 09/13/20 17:22 on a 201 voluntary commitment for worsening anxiety, SI, and inability to care for self. 09/16--reviewed. Chief Complaint "my tremor is definitely better and I'm better with eating but I just don't feel right in the morning". Review of Systems Sleep Information Total Hours of Sleep: 6.75 Sleep Comments: pt on q-15 minute checks Meal Information Percent Meal Consumed - Breakfast: 100 Percent Meal Consumed - Lunch: 100 Percent Meal Consumed - Dinner: 100 Nutrition Comment: per meal record Subjective Subjective Patient was seen & assessed and interval progress reviewed with treatment team. BP/P stable today. Did not report dizziness just a non-specific something "doesn't feel right". She has tolerated longer periods in group but ruminates on anxiety quickly when not engaged. Paces yan but no akathisia. Reviewed pros/cons of additional neurologic work up while hospitalized as there was some discussion about repeat MRI and she prefers to defer additional blood work to outpatient and to pursue open MRI. Reviewed family concerns about her lack of follow through and she states "I know, this stuff makes me anxious and I don't feel like going anywhere." Discussed remaining antidepressant options as she recalls a past trial of Cymbalta and Trintellix and Viibryd non-formulary. Physical Exam Psychiatric Orientation: alert, oriented x 3 and cooperative Apperance: appropriately dressed Eye Contact: + fair eye contact Motor Behavior: no abnormal motor movements Speech: normal rate/rhythm/volume of speech Affect: + blunted affect Mood: + depressed mood and + anxious mood Thought Process: + perseveration Thought Content: + preoccupation and reality based without delusions Suicidal Thoughts: denies suicidal thoughts and denies suicidal intent Homicidal Thoughts: denies homicidal thoughts Hallucinations: no auditory hallucinations and no visual hallucinations Cognition: attention grossly intact and language grossly intact Estimated Intelligence: consistent with education level Insight: + limited insight Judgement: + limited judgement Vital Signs (Past 24 Hours) Last Vital Signs Temp 36.6 C 09/18/20 06:00 Pulse 74 09/18/20 14:12 Resp 16 09/18/20 14:12 BP 123/74 09/18/20 14:12 Pulse Ox 98 09/15/20 21:56 Results & Data ([facility]) Current Inpatient Medications Current Inpatient Medications: Current Inpatient Medications Acetaminophen (Acetaminophen 325 Mg Tab) 650 mg PO Q4H PRN PRN Reason: Headache or Minor Fever Stop: 10/13/20 17:21 Al Hydrox/Mg Hydrox/Simethicone (Aluminum/Magnesium Susp 30 Ml Udc) 30 ml PO Q4H PRN PRN Reason: GI Upset Stop: 10/13/20 17:21 Bismuth Subsalicylate (Bismuth Subsalicylate Liqd 236 Ml) 15 ml PO PRN PRN PRN Reason: Loose Stool Stop: 10/13/20 17:21 Hydroxyzine HCl (Hydroxyzine Hcl 25 Mg Tab) 50 mg PO HSZ PRN PRN Reason: Insomnia Stop: 10/13/20 17:21 Last Admin: 09/13/20 22:05 Dose: 50 mg Documented by: Hydroxyzine HCl (Hydroxyzine Hcl 25 Mg Tab) 25 mg PO Q4H PRN PRN Reason: Anxiety Stop: 10/13/20 17:21 Magnesium Hydroxide (Magnesium Hydroxide Susp 30 Ml Udc) 30 ml PO DAILY PRN PRN Reason: Constipation Stop: 10/13/20 17:21 Last Admin: 09/15/20 09:07 Dose: 30 ml Documented by: Olanzapine (Olanzapine 2.5 Mg Tab) 2.5 mg PO BID JAMIE Stop: 10/14/20 13:19 Last Admin: 09/15/20 08:41 Dose: Not Given Documented by: Olanzapine (Olanzapine 2.5 Mg Tab) 2.5 mg PO DAILY PRN PRN Reason: anxiety Stop: 10/15/20 08:59 Propranolol HCl (Propranolol Hcl 10 Mg Tab) 5 mg PO DAILY PRN PRN Reason: Anxiety Stop: 10/15/20 13:50 Propranolol HCl (Propranolol Hcl 10 Mg Tab) 10 mg PO [id number] [id number] Stop: 10/16/20 13:59 Last Admin: 09/18/20 14:14 Dose: 10 mg Documented by: Sennosides (Senna 8.6 Mg Tab) 8.6 mg PO QAM PRN PRN Reason: Constipation Stop: 10/16/20 10:44 Sodium Chloride (Sodium Chloride 0.65% Na Soln 45 Ml (Inez)) 1 - 2 sprays NA PRN PRN PRN Reason: Nasal Dryness/Congestion Stop: 10/13/20 17:21 Vitamin D (Cholecalciferol 1,000 Units 25 Mcg Tab) 2,000 units PO [id number] [facility] Stop: 10/15/20 10:59 Last Admin: 09/18/20 08:16 Dose: 2,000 units Documented by: Mental Health & Subst Abuse Tx Psychiatrist Name of Psychiatrist: [facility] - JAN Pardo Psychiatrist's Date of Appointment with Psychiatrist: 09/28/20 Time of Appointment with Psychiatrist: 1 pm Psychiatric Appointment Comment: Over the Phone Therapist Name of Therapist: [facility] - Katy Bliss Therapist's Date of Therapist Appointment: 09/20/20 Therapy Appointment Comment: [address], [address], [place] [address] Imaging Technologist Name of Imaging Technologist: None Post Discharge Appointments Primary Care Physician Name Of Family Doctor: Shasha Andrade Primary Care Provider Appointment Comment: [address] [facility] Neurologist Name of Neurologist: Shasha Abreu and Nataliya Pinto Neurologist's Date of Appointment with Neurologist: 11/02/20 Neurology Appointment Comment: Referral made by PCP on 09/12/20 Contact Information Discharge Discharge Address: [address], [place] [address]
[2020-09-19] MEDS: PROPRANOLOL HCL 10 MG TAB PO SCH ×2 (06:52→14:05)
--- NOTE | 2020-09-19 09:54 | Psychiatric Progress Note ---
Date of Service September 19, 2020 Impression / Recommendations Impression Initial H&P Impression: 65-year-old female admitted voluntarily for inpatient psychiatric treatment on 09/13/20 after presenting to the ED with significant anxiety, inability to adequately care for self, and suicidal ideation with thoughts to use a knife to end her life. Pt has been admitted to our unit on two previous occasions with very similar presentations - 03/2020 and 05/2020. It was initially felt that the patient's anxiety may have been related to her hyperparathyroidism; however, patient had had multiple parathyroid nodules removed and hormone levels normalized prior to her 05/2020 admission and anxiety remained as significant, if not more severe. Pt admits that she had been non- compliant with medications since her last admission - stopping both quetiapine and gabapentin due to feeling the medications made her anxiety worse. Pt was seen by neurology during her 05/2020 admission, and we are requesting their assistance again as patient's concerns are ongoing. Appreciate recommendations. Will start patient on low-dose olanzapine to target significant anxiety and assist with sleep. Will encourage participation in group and recreational programming. When appropriate, will schedule a family meeting with the patient's and/or daughter. Pt will be encouraged to complete a written safety plan prior to discharge. Inpatient psychiatric admission is medically necessary at this time due to patient's significant anxiety and inability to contract for safety in the setting of suicidal thoughts. Pt is at acute risk of suicide if discharged prematurely. (1) Suicidal ideation: 09/14 - Admitted to a locked inpatient behavioral health unit, on q15 minute safety checks. Pt denying SI with intent in the hospitals setting, but is not able to contract for safety outside of the hospital setting. - Encourage medication initiation/adjustments as indicated - Encourage participation in group and recreational therapies - Gather collateral information from outpatient providers - Suggest family meeting to involve outpatient supports in safety planning - Arrange appropriate aftercare 09/15 - Continues to endorse intermittent intrusive suicidal thinking. Able to contract for safety on the unit, but not in the outpatient setting 09/16 remains on q15 checks. 09/19 - Pt reports thoughts last evening to "hurt myself", but denies specific thoughts of what she would do or intent to act on these thoughts. She continues to be able to state she would tell her immediately if these thoughts occurred while she was at home. - Reviewed potential discharge as soon as tomorrow, and patient felt this was a reasonable possibility. (2) Anxiety: 09/14 - Will initiate low-dose olanzapine 2.5mg BID to target significant anxiety. Offer encouragement with medications, especially potential need for titration which is often overwhelming to the patient. Will also have a prn dose of 2.5mg available for the patient daily if needed. - Continue to offer reassurance and assist with development of healthy and effective coping strategies. - MNPR due to poor sleep, only getting 1-3 hours a night with frequent disruptions. - When appropriate, will schedule a meeting with the patient's to discuss discharge and safety planning 09/15 - Holding olanzapine presently, as patient refused AM dose and feels it is making her more tremulous (but also slept very well last evening, and did not report this issues last night). Offered a one-time dose of propranolol 5mg this morning to target anxiety, consider scheduling BID if tolerated/effective. - Continue to offer reassurance and assistance with re-framing thoughts. Pt continues to be very somatically preoccupied, which does not mesh well with trying new medications. She was encouraged to focus on what the benefits are able to help with, rather than perseverating on the potential side effects. Used gentle reality orientation, as many of the symptoms patient identifies as "side effects" are the same symptoms she was reporting when not taking any medications at all. In the moment, patient verbalized understanding and desire for assistance with reframing these thoughts. 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 scheduled low-dose benzodiazepines (as only identified medication that patient feels helps). - MNPR discontinued today in the setting of improved sleep 09/16--further propranolol trial to 10 mg BID. Zyprexa is prn and doesn't appear to contribute EPS, restless remains severe anxiety. 09/17--continue current med plan, monitor BP, may need TID dosing propranolol to tolerate. 09/19 - Continue propranolol 10mg BID - patient informed of 5mg as needed dose available once daily. - Pt admits to poor sleep last evening. Reviewed sleep hygiene techniques, specifically getting out of bed and doing a calming activity if she is unable to fall asleep within ~30 minutes. Pt continues to struggle to identify coping skills she feels she can use, indicating "I can't focus" as a reason she cannot do some recommended activities. - Overall, her anxiety does seem to be improved. - Will offer diazepam 5mg prior to MRI study to reduce pre-procedural anxiety (3) Tremor of both hands: 09/16--reviewed neuro input: 1. appear to be a worsening essential tremor 2. no cogwheeling, shuffling gait, mask facies, or decrease in blink frequency 3. treatment will be dependant on psychiatric medications she will be placed on 4. MRI brain with and without could be done if psychiatry thinks it is warranted 5. if there is a question of parkinson in the future a URIEL scan can be done. follow up is scheduled with neurology in May will need to reschedule the EMG prior to this appointment 09/17--improved 09/18--patient prefers open MRI if needs repeat and any additional labs be performed as outpatient. 09/19 - Reviewed MRI options and timing, patient stating she would attempt an MRI at this facility prior to discharge - Scheduled for this afternoon, staff to accompany (4) Paresthesia of both feet: 09/16--neuro input appreciated. 1. will reschedule the follow up EMG as outpatient 2. vitamin B vitamin levels are good, folic acid is normal. if not already done- methylmalonic acid, protein immunofixation, sed rate, LEIF, protein electrophoresis, ammonia, SPEP, hgbA1C 3. gabapentin was tried in the past which she states didn't help may not be a good medication due to psychiatric issues 09/18--improved. (5) Confusion: 09/14 - MoCA completed today - patient scored a 15/30. Could not locate any previous tests with which to compare score. Highest level of education: high school graduate. - Deficits observed in the following areas: - Visuospatial/Executive (08/04): lost points for trails test and cube drawing - unrelated to patient's tremor affecting her drawing ability; contour and numbers of clock drawing were small but appropriate; one point lost for hands due to orientation of the arrows being incorrect. - Naming (08/30): though began by writing the names rather than stating them - Attention (07/05): lost one point number repetition as unable to state the series backwards. Patient missed identifying 6 "A's". Unable/unwilling to attempt serial 7 subtraction. - Language (07/02): lost one point for sentence repetition, no points awarded for fluency as patient was unable to think of a single word starting with "F" - Abstraction (0/2): no points awarded as patient was unable to offer any similarities - Delayed recall (09/01): patient able to recall 3/5 words without category clues. - Orientation (11/02): patient oriented with the only exception of day of the week. 09/15 - Pt continues to endorse "feeling like I just can comprehend things I used to be able to." - Continue to offer reassurance and reorientation 09/19 - Scheduling MRI for later this afternoon - without/with contrast. Staff to accompany patient (6) Multiple somatic complaints: 09/14 - Pt continues to report various non-specific somatic complaints - dizziness, "burning" sensation primarily in lower extremities, restlessness, heat/cold intolerance, etc. While these may be related to anxiety, cannot entirely rule out other etiologies for these concerns. Given the lengthy duration and limited benefit from psychotropic medication recommendations, it does seem to warrant further exploration. - Will request neurology consultation to re-evaluate patient as she continues to report various symptoms where neurological etiology cannot be ruled out. This includes ongoing restless legs, burning sensation/paresthesias in feet/legs and occasional hands/arms. Pt was started on gabapentin, but has since discontinued this medication due to believing it made her symptoms worse. Pt did have a neurology consultation during her 05/2020 admission and outpatient follow-up with EMG study was suggested. Additionally, B12, methylmalonic acid, folic acid, SPEP, thiamine, and B6 were obtained - all WNL. Pt states she was too anxious to attend this appointment, but new referral has been sent by PCP. - Pt may also be demonstrating some parkinsonian symptoms: known tremor of right hand, now also affecting left hand; slowed movements/speech; ?stutter; stooped posture; staggering/shuffling gait; and masked facies. - Pt does believe that father has a diagnosis of dementia - but was uncertain of any specific details. - Appreciate neurology assessment and recommendations. 09/15 - Pt reportedly slept well with 2.5mg of olanzapine last evening (6 hrs, compared to self-report of 1-3 at home). This morning again reporting anxiety, initially refused olanzapine due to feeling she is more tremulous. With the above parkinsonian symptoms concerns this could be the case; however, patient's tremor has also been known to worsen with anxiety as well. Will hold olanzapine until neurology can evaluate today. - Offer 5mg of propranolol for anxiety - may benefit tremor. - Neurology consultation today, appreciate assessment and recommendations. See above under "tremor of both hands" and "paresthesia of both feet" sections for additional treatment details. Protective Factors Assessment Employed: No Interval History Identifying Information WILLA BILL is a 65-year-old F who currently lives in [place] with her , has a history of anxiety and depression, and was admitted on 09/13/20 17:22 on a 201 voluntary commitment for worsening anxiety, SI, and inability to care for self. Chief Complaint "Anxious..." Review of Systems Notes Constitutional: reports poor sleep last evening, fatigue this morning Cardiovascular: denied Respiratory: denied Gastrointestinal: denied Neurological: denied; reports improvement in severity of tremor Psychiatric: denies symptoms other than stated above Total of at least 10 systems reviewed, pertinent positives as above and in HPI. Sleep Information Total Hours of Sleep: 3.5 Sleep Comments: rested/remained in bed, did not have complaints Meal Information Percent Meal Consumed - Breakfast: 100 Percent Meal Consumed - Lunch: 100 Percent Meal Consumed - Dinner: 100 Nutrition Comment: per meal record Subjective Subjective Patient was seen & assessed and interval progress reviewed with nursing and social work. Staff report the patient had a decent day yesterday, with anxiety appearing to be much improved. Pt reportedly predicted that she might sleep poorly, since she was surprised she was doing so well. As predicted, she did not sleep as well last evening and was more anxious this morning related to that concern. Pt was seen today to assess progress since admission. The patient admits she is "anxious." She states that she had poor sleep last evening and is now feeling more anxious today. We reviewed that despite feeling tired, her poor sleep doesn't have to define how good or bad her day is today. Pt agreed with this and stated she plans to continue attending groups and interacting with peers. She states she had tried to use her distraction techniques by listing dog breeds, the colors of the rainbow, and the states - but when this was not effective she continued to lay in bed, unable to fall asleep. Sleep hygiene strategies were reviewed, specifically encouraging patient to get out of bed and find another calming activity to do and then try again to get to sleep. Pt continues to offer statements such as "I tried everything" or "I can't concentrate enough to do that." Pt was encouraged to continue efforts to expand her options for coping skills. Pt does endorse thoughts last evening to "hurt myself", but denies plan of what she would/could have done, and denies intent to act. Pt states these thoughts have since resolved. She continues to feel she would be able to tell her if these thoughts occurred when she is at home. Pt agreed to attempt an MRI this afternoon, requesting medication assistance for pre-procedural anxiety. We reviewed discharge timeline, and patient felt it was possible she may be comfortable returning home as soon as tomorrow, though the severity of her anxiety does continue to wax and wane - but improved overall. Physical Exam Psychiatric Orientation: alert, oriented x 3 and cooperative Apperance: appropriately dressed and appeared stated age Eye Contact: + fair eye contact Motor Behavior: no abnormal motor movements (no obvious tremor observed; occasionally fidgeting with hands) Speech: normal rate/rhythm/volume of speech Affect: + anxious affect Mood: + depressed mood and + anxious mood Thought Process: + perseveration Thought Content: + preoccupation and reality based without delusions Suicidal Thoughts: denies suicidal thoughts, denies suicidal plan and denies suicidal intent does admit to thoughts last evening to "hurt myself", but denied plan or intent to act on these thoughts Homicidal Thoughts: denies homicidal thoughts Hallucinations: no auditory hallucinations and no visual hallucinations Cognition: attention grossly intact and language grossly intact Estimated Intelligence: consistent with education level Insight: + fair insight Judgement: + fair judgement Vital Signs (Past 24 Hours) Last Vital Signs Temp 36.7 C 09/19/20 06:00 Pulse 68 09/19/20 07:00 Resp 16 09/19/20 06:00 BP 130/80 09/19/20 07:00 Pulse Ox 98 09/15/20 21:56 Results & Data ([facility]) Current Inpatient Medications Current Inpatient Medications: Current Inpatient Medications Acetaminophen (Acetaminophen 325 Mg Tab) 650 mg PO Q4H PRN PRN Reason: Headache or Minor Fever Stop: 10/13/20 17:21 Al Hydrox/Mg Hydrox/Simethicone (Aluminum/Magnesium Susp 30 Ml Udc) 30 ml PO Q4H PRN PRN Reason: GI Upset Stop: 10/13/20 17:21 Bismuth Subsalicylate (Bismuth Subsalicylate Liqd 236 Ml) 15 ml PO PRN PRN PRN Reason: Loose Stool Stop: 10/13/20 17:21 Hydroxyzine HCl (Hydroxyzine Hcl 25 Mg Tab) 50 mg PO HSZ PRN PRN Reason: Insomnia Stop: 10/13/20 17:21 Last Admin: 09/13/20 22:05 Dose: 50 mg Documented by: Hydroxyzine HCl (Hydroxyzine Hcl 25 Mg Tab) 25 mg PO Q4H PRN PRN Reason: Anxiety Stop: 10/13/20 17:21 Magnesium Hydroxide (Magnesium Hydroxide Susp 30 Ml Udc) 30 ml PO DAILY PRN PRN Reason: Constipation Stop: 10/13/20 17:21 Last Admin: 09/15/20 09:07 Dose: 30 ml Documented by: Olanzapine (Olanzapine 2.5 Mg Tab) 2.5 mg PO BID [facility] Stop: 10/14/20 13:19 Last Admin: 09/15/20 08:41 Dose: Not Given Documented by: Olanzapine (Olanzapine 2.5 Mg Tab) 2.5 mg PO DAILY PRN PRN Reason: anxiety Stop: 10/15/20 08:59 Propranolol HCl (Propranolol Hcl 10 Mg Tab) 5 mg PO DAILY PRN PRN Reason: Anxiety Stop: 10/15/20 13:50 Propranolol HCl (Propranolol Hcl 10 Mg Tab) 10 mg PO [id number] [facility] Stop: 10/16/20 13:59 Last Admin: 09/19/20 06:52 Dose: 10 mg Documented by: Sennosides (Senna 8.6 Mg Tab) 8.6 mg PO QAM PRN PRN Reason: Constipation Stop: 10/16/20 10:44 Sodium Chloride (Sodium Chloride 0.65% Na Soln 45 Ml (Sharp)) 1 - 2 sprays NA PRN PRN PRN Reason: Nasal Dryness/Congestion Stop: 10/13/20 17:21 Vitamin D (Cholecalciferol 1,000 Units 25 Mcg Tab) 2,000 units PO [id number]@0900 [facility] Stop: 10/15/20 10:59 Last Admin: 09/18/20 08:16 Dose: 2,000 units Documented by: Mental Health & Subst Abuse Tx Psychiatrist Name of Psychiatrist: [facility] - JAN Pardo Psychiatrist's Date of Appointment with Psychiatrist: 09/28/20 Time of Appointment with Psychiatrist: 1 pm Psychiatric Appointment Comment: Over the Phone Therapist Name of Therapist: [facility] - Katy Bliss Therapist's Date of Therapist Appointment: 09/20/20 Therapy Appointment Comment: [address], [address], [place] [address] [place] Name of Pipeman: None Post Discharge Appointments Primary Care Physician Name Of Family Doctor: Shasha Andrade Primary Care Provider Appointment Comment: [address] [facility] Neurologist Name of Neurologist: Shasha Pinto - Dr. Abreu and Nataliya Pinto Neurologist's Date of Appointment with Neurologist: 11/02/20 Neurology Appointment Comment: Referral made by PCP on 09/12/20 Contact Information Discharge Discharge Address: [address] [place] [address]
[2020-09-19] MEDS ORDERED: diazePAM 5 MG TABLET PO ONE (11:08)
[2020-09-19] MEDS ORDERED: diazePAM 5 MG TABLET PO PRN (11:29)
[2020-09-19] MEDS ORDERED: GADOBUTROL 65ML VIAL IV ONE (13:10)
--- NOTE | 2020-09-19 13:23 | Magnetic Resonance Report ---
Brain MRI WITH AND WITHOUT CONTRAST HISTORY: cognitive deficits, severe anxiety, tremor TECHNIQUE: Multiplanar multisequence MRI of the brain was performed both before and after the intrave nous administration of 5 cc of Gadavist contrast. COMPARISON STUDY: None. FINDINGS: There are no areas of restricted diffusion to suggest acute infarction. The midline structu res are intact. The paranasal sinuses are clear. The mastoid air cells are clear. The ventricles and sulci are within normal limits for age. There is no mass, hematoma, midline shift. The major vascular flow-voids at the skull base are well maintained. Postcontrast sequences show no areas of abnormal e nhancement. IMPRESSION: No acute intracranial abnormality. ACT 112: Negative or not required by law. Electronically signed by: Guanaco Bhagat M.D. 09/19/2020 1:22 PM
[2020-09-20] MEDS: PROPRANOLOL HCL 10 MG TAB PO SCH (06:46)
[2020-09-20] MEDS: CHOLECALCIFEROL 1,000 UNITS 25 MCG TAB PO SCH (08:37)
--- NOTE | 2020-09-20 09:09 | Discharge Summary ---
Date of Service September 20, 2020 History of Present Illness Areli Siddiqui is a 65-year-old female admitted voluntarily for inpatient psychiatric treatment on 09/13/2020 after presenting to the ED with worsening anxiety and inability to care for self, admitting to suicidal ideation with thoughts to use a knife to kill herself. ED documentation was reviewed and the patient states that she has not been doing well. She has stopped taking her psychotropic medications due to feeling they made her symptoms worse. Per reports, the patient has not showered in several days and is demonstrated impaired ability to care for herself at home. Suicidal thoughts reportedly developed several days prior to her admission. History of stuttering and tremor, which are exacerbated by anxiety - reportedly significant in the ED. Pt did receive 2 doses of diazepam 2.5mg in the ED for anxiety. Pt was cooperative with psychiatric assessment, though had difficulty tolerating the long duration of our conversation. Her responses to questions are often vague, and she is a somewhat limited historian in the setting of significant anxiety. Patient has a very similar presentation to her past admissions to our unit, 03/2020 and 05/2020. She admits "I had some really nasty thoughts." The patient states "I'm not on any meds. They were making my anxiety worse." Pt reports feeling as though the Seroquel "made my thoughts really bad." Pt states these symptoms have been persistent for some time, without any clearly iden tifiable trigger - however, she does report some recent stressors. Pt states that her daugther's [id number] recently, and states that the patient's own mother fell in 07/2020 and broke her hip. Pt becomes observably anxious while talking about her mother - squirming in her seated position in the edge of the bed, more obvious stutter, increased tremor, and wringing the bed sheets with her hand. Pt states that her mother is doing well and is back home, but the patient feels guilty for "my siblings had to handle everything. I was too messed up to even take care of myself." Pt states she is only sleeping 3 hours a night, often having to wake up and walk around due to increased restlessness, and is then unable to get back to sleep. Pt states that she tries to distract herself from the anxiety by using puzzle books or mindfulness techniques, but does not feel as though she can concentration long enough for these to be effective. Pt does admit to confused and disconnected thoughts. Pt is able to contract for safety here in the hospital setting, but does not feel that she could function at home. Physical Exam Psychiatric Orientation: alert, oriented x 3 and cooperative Apperance: appropriately dressed, appropriately groomed and appeared stated age Eye Contact: good eye contact Motor Behavior: steady gait and station Mild restlessness, wanted to stand up in the middle of the interview Speech: normal rate/rhythm/volume of speech Affect: + anxious affect and mood congruent with affect Mood: + anxious mood Thought Process: goal directed thought process Thought Content: + cognitive distortions Suicidal Thoughts: denies suicidal thoughts Homicidal Thoughts: denies homicidal thoughts Hallucinations: no auditory hallucinations and no visual hallucinations Cognition: recent memory grossly intact, attention grossly intact and language grossly intact Insight: + fair insight Judgement: + fair judgement Vital Signs (Past 24 Hours) Last Vital Signs Temp 36.6 C 09/20/20 07:00 Pulse 67 09/20/20 07:00 Resp 16 09/20/20 07:00 BP 127/79 09/20/20 07:00 Pulse Ox 98 09/15/20 21:56 Principal Diagnosis Generalized anxiety disorder Psychiatric Data The patient was hospitalized for 7 days. This is her third hospitalization in 4 months on our unit. On admission, she was started on olanzapine 2.5 mg twice daily to target anxiety, as she had failed multiple medications previously, including SSRI and TCA antidepressants, mirtazapine, buspirone, and 2 other atypical antipsychotics. After receiving 2 doses, she refused the medication, she felt it was making her tremor worse. Neurology consult was requested due to tremor and concern for parkinsonism and potential neurological condition. The neurology team diagnosed bilateral upper extremity postural/kinetic tremor, and noted no signs or symptoms consistent with Parkinson's disease. They felt her anxiety was contributing to poor memory and concentration. They noted she did not tolerate gabapentin, which have been tried for her tremor in the past, and recommended treating her anxiety prior to starting anything for tremor, with future consideration of primidone. They scheduled outpatient follow-up with her (she had previously been scheduled with them after her last hospitalization here for EMG to work-up bilateral lower extremity paresthesia, but did not attend follow-up appointment). Propanolol as needed was ordered for tremor and anxiety, and she had a good response to the first dose, so it was scheduled and titrated to 10 mg twice daily with a 5 mg as needed dose. Staff noted improvements over the next several days, with reduced anxiety, improved engagement with others and focus on groups and other activities, although the patient herself did not feel she was improving, and actually became more anxious when staff told her she looked better. Her symptoms appear to be alleviated by participation in groups and interacting with others, and worse when she was alone or had free time. She continued to endorse generalized worry throughout her hospitalization, and was encouraged to work on a daily structure that she could continue when she returned home at discharge. Her blood pressure was monitored and she had 2 doses of propanolol held due to low blood pressure, but denied worsening of her baseline lightheadedness. She was encouraged to stay hydrated, and appetite improved. She had a family meeting with the high school social science teacher, her , and daughter on 09/18/2020; family was disappointed that a medical explanation had not been found for her anxiety, and requested that she have a brain MRI. The patient acknowledged that she does better in the hospital when around others, and the family discussed all of the changes that had occurred at home over the past year, with increased isolation from friends due to the pandemic, health problems, and lack of structure. She was encouraged to start doing more things with friends, but was reluctant to commit to that as she is also reluctant to get the vaccine. They talked about her enjoyment of board games, and that she is able to focus on those, and usually wins when she plays w ith family members. The brain MRI was completed on 09/19/2020 and was normal. Suicidal thoughts improved, although she continued to report brief thoughts of not wanting to be alive, often when unable to sleep at night. She denies any plan or intent to pursue, and was able to review her safety plan in detail. Day of Discharge Assessment Staff report patient has been going to groups, eating and sleeping well. She is taking medications as prescribed and tolerating them well. She met with staff and processed her anxiety about discharge, reported feeling "hopeful" but also anxious about how things will go when she goes home. On my assessment, she reports she is still anxious about how she will do at home, and is worried that she "won't know what to do." She is able to review her daily routine, and activities she enjoys (playing games, word puzzles, watching TV, going out for a walk). She is willing to attend her outpatient appointments. She is fearful of suicidal thoughts returning, stating sometimes they "pop up," although she denies any plan or intent to harm herself, and does not want to hurt herself. She is able to review her safety plan, and confirms she and her family have secured all knives and she doesn't have access to anything she could use to hurt herself. She has been working on coping strategies in therapy and will see her therapist this afternoon. We also reviewed the option of getting a case planner and engaging in IOP, and will provide contact information for the Transition of Care Transition Of Care Record: was reviewed with the patient Advance Directives Advance Directives Information Provided: Yes Advance Directives: No Mental Health Advance Directive: No Advance Directives on File: No Living Will: No Power of Adjustment Supervisor: No Advance Directives Reason:: Declines as Mental Health Visit. Risk Factors Assessment Risk factors were mitigated by admission to the inpatient unit, use of medications to target neurological and psychiatric symptoms, education about her diagnoses and the recommended treatment, engaging her in groups and therapy, working on healthy coping skills and discharge safety plan, neurological consultation/treatment of medical comorbidities, family meeting with her fabiola gracia and for discharge planning. She has demonstrated improvement in symptoms, is consistently denying plan or intent to harm herself, is eating, sleeping, and taking medication, and stating willingness to follow-up with outpatient treatment. She is no longer at acute risk of harm to herself, and can be discharged and managed as an outpatient at this time. Male: No : Yes Do You Have Access To A Gun?: No Health Problems: Yes Mental Health Diagnoses: Yes Substance Use Disorders: No Previous Attempt: No Family History of Suicide: No Previous Psychiatric Hospitalization: Yes Hopelessness: Yes Smoker: No Protective Factors Assessment : Yes Responsible for Young Children: No Employed: No Stable Relationships: Yes Supportive Family: Yes Good Rapport with Provider: Yes Tobacco Cessation at Discharge Tobacco Cessation Medication Prescribed at Discharge: Not Applicable/Non-Smoker Total Time Total Time Spent: Greater Than 30 Minutes Total Time Includes: Examination of the patient, Discharge Planning and Medication Reconciliation Discharge Data Consultations 09/14/20 13:57 Consult Neurology Routine Lab Results 09/13/20 09/13/20 09/13/20 12:16 12:16 12:16 WBC 5.35 RBC 4.65 Hgb 13.2 Hct 39.3 MCV 84.5 MCH 28.4 MCHC 33.6 RDW Std Deviation 44.5 RDW Coeff of Sammi 14.4 Plt Count 265 MPV 10.0 Immature Gran % (Auto) 0.0 Neut % (Auto) 66.1 Lymph % (Auto) 25.8 [place] % (Auto) 7.7 Eos % (Auto) 0.2 Baso % (Auto) 0.2 Neut # (Auto) 3.54 Lymph # (Auto) 1.38 [place] # (Auto) 0.41 Eos # (Auto) 0.01 Baso # (Auto) 0.01 Immature Gran # (Auto) 0.00 Sodium 139 Potassium 4.1 Chloride 107 Carbon Dioxide 26 Anion Gap 6.0 BUN 16 Creatinine 0.92 Est Cr Clr Drug Dosing 49.1 Est GFR ( Amer) 74.7 Est GFR (Non-Af Amer) 64.4 BUN/Creatinine Ratio 17.8 Glucose 83 Calcium 9.6 Magnesium 2.4 Total Bilirubin 0.7 AST 9 L ALT 20 Alkaline Phosphatase 67 Total Protein 7.9 Albumin 4.1 Globulin 3.8 Albumin/Globulin Ratio 1.1 TSH 1.080 Urine Color Urine Appearance Urine pH Ur Specific Thayer Urine Protein Urine Glucose (UA) Urine Ketones Urine Blood Urine Nitrite Urine Bilirubin Urine Urobilinogen Ur Leukocyte Esterase Urine WBC (Auto) Urine RBC (Auto) U Hyaline Cast (Auto) U Epithel Cells (Auto) Urine Bacteria (Auto) Salicylates < 1.7 L Urine Opiates Screen Ur Methadone, Qual Acetaminophen < 2 L Urine Barbiturates Ur Phencyclidine (PCP) U Amphetamin/Meth Scrn MDMA (Ecstasy) Screen U Benzodiazepines Scrn Ur Cocaine Metabolite U Marijuana (THC) Screen Ethyl Alcohol mg/dL SARS-CoV-2 Ag (Rapid) 09/13/20 09/13/20 09/13/20 12:16 12:38 12:38 WBC RBC Hgb Hct MCV MCH MCHC RDW Std Deviation RDW Coeff of Sammi Plt Count MPV Immature Gran % (Auto) Neut % (Auto) Lymph % (Auto) [place] % (Auto) Eos % (Auto) Baso % (Auto) Neut # (Auto) Lymph # (Auto) [place] # (Auto) Eos # (Auto) Baso # (Auto) Immature Gran # (Auto) Sodium Potassium Chloride Carbon Dioxide Anion Gap BUN Creatinine Est Cr Clr Drug Dosing Est GFR ( Amer) Est GFR (Non-Af Amer) BUN/Creatinine Ratio Glucose Calcium Magnesium Total Bilirubin AST ALT Alkaline Phosphatase Total Protein Albumin Globulin Albumin/Globulin Ratio TSH Urine Color Yellow Urine Appearance Clear Urine pH 5.0 Ur Specific Thayer 1.027 Urine Protein Negative Urine Glucose (UA) Negative Urine Ketones Negative Urine Blood 1+ H Urine Nitrite Negative Urine Bilirubin Negative Urine Urobilinogen Negative Ur Leukocyte Esterase Negative Urine WBC (Auto) 1-5 Urine RBC (Auto) 0-4 U Hyaline Cast (Auto) 1-5 U Epithel Cells (Auto) 10-20 H Urine Bacteria (Auto) Negative Salicylates Urine Opiates Screen Neg Ur Methadone, Qual Neg Acetaminophen Urine Barbiturates Neg Ur Phencyclidine (PCP) Neg U Amphetamin/Meth Scrn Neg MDMA (Ecstasy) Screen Neg U Benzodiazepines Scrn Neg Ur Cocaine Metabolite Neg U Marijuana (THC) Screen Neg Ethyl Alcohol mg/dL < 3.0 SARS-CoV-2 Ag (Rapid) 09/13/20 14:46 WBC RBC Hgb Hct MCV MCH MCHC RDW Std Deviation RDW Coeff of Sammi Plt Count MPV Immature Gran % (Auto) Neut % (Auto) Lymph % (Auto) [place] % (Auto) Eos % (Auto) Baso % (Auto) Neut # (Auto) Lymph # (Auto) [place] # (Auto) Eos # (Auto) Baso # (Auto) Immature Gran # (Auto) Sodium Potassium Chloride Carbon Dioxide Anion Gap BUN Creatinine Est Cr Clr Drug Dosing Est GFR ( Amer) Est GFR (Non-Af Amer) BUN/Creatinine Ratio Glucose Calcium Magnesium Total Bilirubin AST ALT Alkaline Phosphatase Total Protein Albumin Globulin Albumin/Globulin Ratio TSH Urine Color Urine Appearance Urine pH Ur Specific Thayer Urine Protein Urine Glucose (UA) Urine Ketones Urine Blood Urine Nitrite Urine Bilirubin Urine Urobilinogen Ur Leukocyte Esterase Urine WBC (Auto) Urine RBC (Auto) U Hyaline Cast (Auto) U Epithel Cells (Auto) Urine Bacteria (Auto) Salicylates Urine Opiates Screen Ur Methadone, Qual Acetaminophen Urine Barbiturates Ur Phencyclidine (PCP) U Amphetamin/Meth Scrn MDMA (Ecstasy) Screen U Benzodiazepines Scrn Ur Cocaine Metabolite U Marijuana (THC) Screen Ethyl Alcohol mg/dL SARS-CoV-2 Ag (Rapid) Negative Hospital Course (1) Suicidal ideation: 09/14 - Admitted to a locked inpatient behavioral health unit, on q15 minute safety checks. Pt denying SI with intent in the hospitals setting, but is not able to contract for safety outside of the hospital setting. - Encourage medication initiation/adjustments as indicated - Encourage participation in group and recreational therapies - Gather collateral information from outpatient providers - Suggest family meeting to involve outpatient supports in safety planning - Arrange appropriate aftercare 09/15 - Continues to endorse intermittent intrusive suicidal thinking. Able to contract for safety on the unit, but not in the outpatient setting 09/16 remains on q15 checks. 09/19 - Pt reports thoughts last evening to "hurt myself", but denies specific thoughts of what she would do or intent to act on these thoughts. She continues to be able to state she would tell her immediately if these thoughts occurred while she was at home. - Reviewed potential discharge as soon as tomorrow, and patient felt this was a reasonable possibility. 09/20 -Patient reports brief, intrusive thoughts of harming herself that occurred when she is highly anxious, often when trying to fall asleep. She denies any plan or intent to harm herself, and is able to review her discharge safety plan, including talking to her outpatient clinicians, talking to her or daughter, going for a walk, calling the crisis line, or returning to the ER. She states that all knives have been secured so that she does not have access to them at home. (2) Anxiety: 09/14 - Will initiate low-dose olanzapine 2.5mg BID to target significant anxiety. Offer encouragement with medications, especially potential need for titration which is often overwhelming to the patient. Will also have a prn dose of 2.5mg available for the patient daily if needed. - Continue to offer reassurance and assist with development of healthy and effective coping strategies. - MNPR due to poor sleep, only getting 1-3 hours a night with frequent disruptions. - When appropriate, will schedule a meeting with the patient's to discuss discharge and safety planning 09/15 - Holding olanzapine presently, as patient refused AM dose and feels it is making her more tremulous (but also slept very well last evening, and did not report this issues last night). Offered a one-time dose of propranolol 5mg this morning to target anxiety, consider scheduling BID if tolerated/effective. - Continue to offer reassurance and assistance with re-framing thoughts. Pt continues to be very somatically preoccupied, which does not mesh well with trying new medications. She was encouraged to focus on what the benefits are able to help with, rather than perseverating on the potential side effects. Used gentle reality orientation, as many of the symptoms patient identifies as "side effects" are the same symptoms she was reporting when not taking any medications at all. In the moment, patient verbalized understanding and desire for assistance with reframing these thoughts. - Schedule family meeting with and/or daughter when appropriate - Reviewed case with patient's psychiatric [employer] - discussed use of propranolol vs. scheduled low-dose benzodiazepines (as only identified medication that patient feels helps). - MNPR discontinued today in the setting of improved sleep 09/16--further propranolol trial to 10 mg BID. Zyprexa is prn and doesn't appear to contribute EPS, restless remains severe anxiety. 09/17--continue current med plan, monitor BP, may need TID dosing propranolol to tolerate. 09/19 - Continue propranolol 10mg BID - patient informed of 5mg as needed dose available once daily. - Pt admits to poor sleep last evening. Reviewed sleep hygiene techniques, s pecifically getting out of bed and doing a calming activity if she is unable to fall asleep within ~30 minutes. Pt continues to struggle to identify coping skills she feels she can use, indicating "I can't focus" as a reason she cannot do some recommended activities. - Overall, her anxiety does seem to be improved. - Will offer diazepam 5mg prior to MRI study to reduce pre-procedural anxiety 09/20 -discharge to home, issued prescription for propanolol 10 mg twice daily and 5 mg once daily as needed dose. Patient is planning to get a blood pressure cuff, and put the blood pressure and pulse parameters on her discharge paperwork for her. -Follow-up with outpatient therapist this afternoon, and JAN Pardo on 09/28/2020. (3) Tremor of both hands: 09/16--reviewed neuro input: 1. appear to be a worsening essential tremor 2. no cogwheeling, shuffling gait, mask facies, or decrease in blink frequency 3. treatment will be dependant on psychiatric medications she will be placed on 4. MRI brain with and without could be done if psychiatry thinks it is warranted 5. if there is a question of parkinson in the future a URIEL scan can be done. follow up is scheduled with neurology in May will need to reschedule the EMG prior to this appointment 09/17--improved 09/18--patient prefers open MRI if needs repeat and any additional labs be performed as outpatient. 09/19 - Reviewed MRI options and timing, patient stating she would attempt an MRI at this facility prior to discharge - Scheduled for this afternoon, staff to accompany 09/20 -brain MRI results were normal, reviewed with patient. Follow-up as directed with neurology in the outpatient clinic. (4) Paresthesia of both feet: 09/16--neuro input appreciated. 1. will reschedule the follow up EMG as outpatient 2. vitamin B vitamin levels are good, folic acid is normal. if not already done- methylmalonic acid, protein immunofixation, sed rate, LEIF, protein electrophoresis, ammonia, SPEP, hgbA1C 3. gabapentin was tried in the past which she states didn't help may not be a good medication due to psychiatric issues 09/18--improved. (5) Confusion: 09/14 - MoCA completed today - patient scored a 15/30. Could not locate any previous tests with which to compare score. Highest level of education: high school graduate. - Deficits observed in the following areas: - Visuospatial/Executive (08/04): lost points for trails test and cube drawing - unrelated to patient's tremor affecting her drawing ability; contour and numbers of clock drawing were small but appropriate; one point lost for hands due to orientation of the arrows being incorrect. - Naming (08/30): though began by writing the names rather than stating them - Attention (07/05): lost one point number repetition as unable to state the series backwards. Patient missed identifying 6 "A's". Unable/unwilling to attempt serial 7 subtraction. - Language (07/02): lost one point for sentence repetition, no points awarded for fluency as patient was unable to think of a single word starting with "F" - Abstraction (0/2): no points awarded as patient was unable to offer any similarities - Delayed recall (09/01): patient able to recall 3/5 words without category clues. - Orientation (11/02): patient oriented with the only exception of day of the week. 09/15 - Pt continues to endorse "feeling like I just can comprehend things I used to be able to." - Continue to offer reassurance and reorientation 09/19 - Scheduling MRI for later this afternoon - without/with contrast. Staff to accompany patient (6) Multiple somatic complaints: 09/14 - Pt continues to report various non-specific somatic complaints - dizziness, "burning" sensation primarily in lower extremities, restlessness, heat/cold int olerance, etc. While these may be related to anxiety, cannot entirely rule out other etiologies for these concerns. Given the lengthy duration and limited benefit from psychotropic medication recommendations, it does seem to warrant further exploration. - Will request neurology consultation to re-evaluate patient as she continues to report various symptoms where neurological etiology cannot be ruled out. This includes ongoing restless legs, burning sensation/paresthesias in feet/legs and occasional hands/arms. Pt was started on gabapentin, but has since discontinued this medication due to believing it made her symptoms worse. Pt did have a neurology consultation during her 05/2020 admission and outpatient follow-up with EMG study was suggested. Additionally, B12, methylmalonic acid, folic acid, SPEP, thiamine, and B6 were obtained - all WNL. Pt states she was too anxious to attend this appointment, but new referral has been sent by PCP. - Pt may also be demonstrating some parkinsonian symptoms: known tremor of right hand, now also affecting left hand; slowed movements/speech; ?stutter; stooped posture; staggering/shuffling gait; and masked facies. - Pt does believe that father has a diagnosis of dementia - but was uncertain of any specific details. - Appreciate neurology assessment and recommendations. 09/15 - Pt reportedly slept well with 2.5mg of olanzapine last evening (6 hrs, compared to self-report of 1-3 at home). This morning again reporting anxiety, initially refused olanzapine due to feeling she is more tremulous. With the above parkinsonian symptoms concerns this could be the case; however, patient's tremor has also been known to worsen with anxiety as well. Will hold olanzapine until neurology can evaluate today. - Offer 5mg of propranolol for anxiety - may benefit tremor. - Neurology consultation today, appreciate assessment and recommendations. See above under "tremor of both hands" and "paresthesia of both feet" sections for additional treatment details. Mental Health & Subst Abuse Tx Psychiatrist Name of Psychiatrist: [facility] - JAN Pardo Psychiatrist's Date of Appointment with Psychiatrist: 09/28/20 Time of Appointment with Psychiatrist: 1 pm Psychiatric Appointment Comment: Telehealth Therapist Name of Therapist: [facility] - Katy Bliss Therapist's Date of Therapist Appointment: 09/20/20 Time of Therapist Appointment: 4:00 pm Therapy Appointment Comment: [address] [address] Plant Taxonomist Name of Plant Taxonomist: None Post Discharge Appointments Primary Care Physician Name Of Family Doctor: Shasha Andrade Primary Care Date of Appointment with PCP: 09/22/20 Time of Appointment with PCP: 1:45 pm Provider Appointment Comment: [facility] Neurologist Name of Neurologist: Shasha Pinto - Dr. Abreu and Nataliya Pinto Neurologist's Date of Appointment with Neurologist: 11/02/20 Neurology Appointment Comment: Referral made by PCP on 09/12/20 Smoking Cessation Counseling Tobacco Cessation Medication Prescribed at Discharge: Not Applicable/Non-Smoker Contact Information Discharge Discharge Address: [address] [place] [address] Discharge Plan Discharge Items Patient Disposition: Home - Self-Care Reason For Visit: ANXIETY SI Discharge Diagnosis: Generalized anxiety disorder Condition on Discharge: Good Activity: Per Instructions section Non-emergency contact: Primary Care Provider, Psychiatrist and Therapist Call non-emergency contact if: you have any medication questions and your symptoms worsen Follow-up/Referrals: Stan Andrade MD [Primary Care Provider] - Diet: Regular Addtl Attending Provider Instructions: SPECIAL CARE INSTRUCTIONS: 1. Follow through with your scheduled aftercare appointments. If unable to keep an appointment, please call to reschedule. 2. Take your medication only as prescribed. Medication should not be changed or stopped without the approval of your doctor. In the event of worsening symptoms or concerns about side effects, contact your doctor immediately. You are on propanolol for tremor and anxiety. This medication can lower blood pressure, and should be held if your heart rate is below 60 bpm, or systolic blood pressure is below 100. 3. Utilize new healthy coping skills, anger management skills, and stress management skills learned during your hospitalization. Journal feelings and process them with a support person. Identify stressors or situations that may result in relapse, deterioration or inappropriate behaviors and develop a plan to deal with those issues. You may benefit from more intensive outpatient treatment, such as case management, psych rehab, or [facility]. If you would like to pursue this, contact the [facility] ID office [phone]. 4. If your coping skills are ineffective and you are in crisis, contact your outpatient providers for direction. If unable to reach your providers, please call the [facility] CRISIS LINE AT , go to the [facility] walk-in center at [address], [place], or go to the closest Emergency Room. 5. Avoid alcohol and un-prescribed drugs. 6. You have been provided with the Mental Health Advance Directives Pamphlet for your review. AFTERCARE APPOINTMENTS: * Please call your insurance company prior to your scheduled appointment to confirm your aftercare providers are covered. Take your insurance information to your [employer]. WHO TO CALL AND WHEN: Medical Emergencies: For questions or emergencies related to your hospital stay, please contact the Inpatient Behavioral Health Unit at [phone]. A substance abuse clinician is on-call 20/01 for the Behavioral Health Unit for emergencies At any time you feel your situation is an emergency, you may also call 911 immediately. Pending Studies at Discharge: No Studies:: Head CT: No acute intracranial abnormality. Brain MRI: No acute intracranial abnormality. Stand-Alone Forms: My [employer], Smoking Cessation Medications and DC Order Prescriptions: New propranolol 10 mg Tablet 10 mg PO [id number] Qty: 60 RF: 0 propranolol 10 mg Tablet 5 mg PO DAILY PRN (Reason: anxiety) Qty: 10 RF: 0 Continued cholecalciferol (vitamin D3) [Vitamin D3] 50 mcg (2,000 unit) Tablet See Rx Instructions .ROUTE .COMPLEX RF: 0 Discharge Orders: Discharge Order (Routine); Ordered 09/20/20 Ordered By: Mariana Rossi Admission Data Admit Date/Time: 09/13/20 17:22 Attending Provider: Mariana Rossi Admit Provider: Mariana Rossi Primary Care Provider: Stan Andrade. Other Providers: Nataliya Pinto ; Stan Mars ; Nataliya Raman ; Charles Abreu Coding Level of Care Code 37607 D/C day mgmt > 30 min Diagnoses Suicidal ideation R45.851 Anxiety F41.9 Tremor of both hands R25.1 Paresthesia of both feet R20.2 Confusion R41.0 Multiple somatic complaints R68.89
== END 2020-09-20 11:05 | disposition home or self-care (01) | DRG 880 ==
LOC: ED 11:36 → 3S 17:22